=== PATIENT | female | born 1950 | race Caucasian/White ===

== ENCOUNTER 2019-08-01 10:34 | Outpatient (CLI) | payer OTHER, MEDICARE, SELFPAY ==
[2019-08-01 10:44] LABS: Hematocrit 36.8 % (35.0-42.0); Hemoglobin 12.6 g/dL (11.7-13.8); Mean Corpuscular HGB Conc 34.2 g/dL (32.0-36.0); Mean Corpuscular Hemoglobin 30.7 pg (27.0-31.0); Mean Corpuscular Volume 89.5 fL (78.0-102.0); Mean Platelet Volume 9.8 fl (9.2-11.8); Platelet Count Result 243 K/mm3 (150-420); Red Blood Count 4.11 M/mm3 (4.20-5.40); Red Cell Distribution Width 14.2 % (11.6-14.4); White Blood Count 3.7 K/mm3 (4.8-10.8)
[2019-08-01 11:17] LABS: Band Neutrophils Percent 0 % (0-6); Basophils Absolute Manual 0.03 K/mm3 (0-0.1); Basophils Percent Manual 1 % (0-1); Eosinophils Absolute Manual 0.03 K/mm3 (0.02-0.5); Eosinophils Percent Manual 1 % (1-6); Lymphocytes Absolute Manual 1.11 K/mm3 (1.1-4.5); Lymphocytes Percent Manual 30 % (18-44); Monocytes Absolute Manual 0.25 K/mm3 (0.1-0.90); Monocytes Percent Manual 7 % (3-9); Neutrophils Absolute Manual 2.25 K/mm3 (1.7-7.2); Neutrophils Percent Manual 61 % (46-73); Total Cells Counted 100
[2019-08-01 11:18] LABS: Platelet Estimate Adequate (Adequate)
[2019-08-01 11:31] LABS: Alanine Aminotransferase 29 U/L (14-59); Albumin Level 4.1 g/dL (3.4-5.0); Alkaline Phosphatase 70 U/L (46-116); Anion Gap 9.5 mmol/L (7-16); Aspartate Amino Transferase 18 U/L (15-37); Bilirubin,Total 0.3 mg/dL (0.00-1.00); Blood Urea Nitrogen 13 mg/dL (7-18); Carbon Dioxide 30 mmol/L (21-32); Chloride 100 mmol/L (98-108); Cholesterol 190 mg/dL (0-200); Creatine Kinase 73 U/L (26-192); Estimated Glomerular Filt Rate > 60; Ferritin 54 ng/mL (8-252); Free T4 Free Thyroxine 0.92 ng/dL (0.76-1.46); Glucose 109 mg/dL (70-99); HDL Direct 62 mg/dL (40-60); Iron 51 ug/dL (50-170); LDL Cholesterol Calculated 120 mg/dL (<130); Osmolality Calculated 281 mOsm/kg (285-295); Percent Iron Saturation 19 % (12-57); Potassium 4.5 mmol/L (3.5-5.1); Sodium 135 mmol/L (136-145); Thyroid Stimulating Hormone 2.19 uIU/mL (0.36-3.74); Total Protein 6.7 g/dL (6.4-8.2); Triglycerides 41 mg/dL (0-150)
== END 2019-08-01 10:35 | disposition home or self-care (01) ==
LOC: CHSLAB 10:36
PROVIDERS: PCP Internal Medicine; Visit Provider Internal Medicine
DX: E03.4 Atrophy of thyroid (acquired) (principal); I10 Essential (primary) hypertension; E78.5 Hyperlipidemia, unspecified; D50.9 Iron deficiency anemia, unspecified
CPT/HCPCS: 36415; 80053; 80061; 82550; 82728; 83540; 83550; 84439; 84443; 85025

== ENCOUNTER 2019-11-14 10:47 | Outpatient (CLI) | payer MEDICARE, SELFPAY ==
--- NOTE | ~2019-11-14 | MM_ITS ---
EXAMINATION: MM screening [facility] BI w sue HISTORY: Screening mammogram TECHNIQUE: Craniocaudal and mediolateral oblique 3-D tomosynthesis images were obtained and synthetic 2-D images were generated. CAD analysis was submitted and interpreted. COMPARISON: 05/25/2016, 03/13/2013 bilateral digital screening mammogram examinations BREAST PARENCHYMAL COMPOSITION: There are scattered areas of fibroglandular density. FINDINGS: There is no evidence of suspicious mass, calcification, or architectural distortion to sugg est malignancy in either breast. There has been no suspicious interval change. IMPRESSION: 1. No mammographic evidence of malignancy. 2. Recommend routine screening mammography in one year. BI-RADS Category 1: Negative Reviewed, dictated and finalized at location A.
== END 2019-11-14 10:48 | disposition home or self-care (01) ==
LOC: CHSIMG 10:50
PROVIDERS: PCP Internal Medicine; Visit Provider Internal Medicine
DX: Z12.31 Encounter for screening mammogram for malignant neoplasm of breast (principal)
CPT/HCPCS: 77063; 77067

== ENCOUNTER 2019-12-16 08:26 | Emergency (ER) | payer MEDICARE, SELFPAY ==
--- NOTE | ~2019-12-16 | XR_ITS ---
EXAMINATION: XR knee LT min 4V DATE: 12/16/2019 09:11 INDICATION: Left knee injury. TECHNIQUE: 5 views of left knee were obtained. COMPARISON: Left knee radiographs 10/01/2013 FINDINGS: Bone alignment is normal. No fracture. There is mild osteoarthritis of medial and patellofe moral compartments and moderate osteoarthritis of lateral compartment. There is a small knee joint ef fusion. There is a 3 mm loose body in the intercondylar notch. IMPRESSION: 1. Moderate left knee osteoarthritis. 2. Small left knee joint effusion with loose body. Reviewed, dictated and finalized at location A.
[2019-12-16 08:36] VITALS: BP 158/83; PULSE 81; RESP 18; TEMP 36.9; O2SAT 97
--- NOTE | 2019-12-16 08:50 | ED.FALL ---
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 She fell forward onto her hands and knees, hitting her upper lip which subsequently bled. She c/o pain in the upper lip, right wrist (#4/10) and left knee. There is increased discomfort in the wrist when she moves it (#4/10) and her knee when she bears weight #3/10). The knee pain is sharp, is relieved with ice and rest. She had no LOC, denies headache/neck pain. Related Data Home Medications Medication Instructions Recorded Confirmed fluoxetine 40 mg DAILY 12/16/19 12/16/19 furosemide 40 mg PO DAILY 12/16/19 12/16/19 levothyroxine 100 mcg PO DAILY 12/16/19 12/16/19 meloxicam 15 mg PO DAILY 12/16/19 12/16/19 omeprazole 20 mg PO DAILY 12/16/19 12/16/19 ramipril 5 mg PO DAILY 12/16/19 12/16/19 trazodone 100 mg PO DAILY 12/16/19 12/16/19 Allergies Allergy/AdvReac Type Severity Reaction Status Date / Time pneumococcal vaccine Allergy Mild Swelling Verified 12/16/19 08:48 Review of Systems Constitutional: Constitutional: Denies chills and Denies fever(s) Eyes: Eyes: Denies change in vision ENT: Denies epistaxis and Denies sore throat Cardiovascular: Cardiovascular: Denies chest pain Respiratory: Respiratory: Denies dyspnea Gastrointestinal: Gastrointestinal: Denies nausea and Denies vomiting Musculoskeletal: Musculoskeletal: Reports no additional musculoskeletal complaints Integumentary/Breasts: Skin/Breast: Reports system reviewed and no additional complaints, except as docu PMFSH Past Medical History Medical History (Updated 12/16/19 @ 09:35 by Preston Gonzalez MD) Depression Hypertension Hypothyroidism Macular degeneration Surgical History Surgical History (Updated 12/16/19 @ 09:11 by Preston Gonzalez MD) H/O: hysterectomy History of appendectomy Social History Social History (Updated 12/16/19 @ 09:12 by Preston Gonzalez MD) 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 Mucosal side of lip has a 1.5 cm laceration which gapes when she smiles. No scalp or frontal tenderness. Eyes: Pupils: Equal, round and reactive pupils present EOM: EOMs intact bilaterally Neck: Neck: no lymphadenopathy Other: non-tender Skin: General skin exam: normal color Rashes: no rashes Other: no abrasions or external lac. Neuro: General: patient oriented x3 and moves all extremities Extrem: Left upper extremity: wrist (Right - nontender, stable ulnar collateral ligament, full painless ROM) Other: No left wrist tenderness/pain with movement. Left tibial tuberosity swelling and tenderness. No patella, femur, tibial, joint line tenderness. Full painless ROM. Stable varus/valgus stress test. Course Course Emergency Course: mucosal laceration repaired. L. knee x ray result reviewed with patient. Pt. d.c. to return to work. Vital Signs Vital signs: Vital Signs Temperature 36.9 C 12/16/19 08:36 Pulse Rate 81 12/16/19 08:36 Respiratory Rate 18 12/16/19 08:36 Blood Pressure 158/83 H 12/16/19 08:36 Pulse Oximetry 97 12/16/19 08:36 Temperature 36.9 C 12/16/19 08:36 Pulse Rate 81 12/16/19 08:36 Respiratory Rate 18 12/16/19 08:36 Blood Pressure 158/83 H 12/16/19 08:36 Pulse Oximetry 97 12/16/19 08:36 Procedures Laceration Laceration 1: Date: 12/16/19 Time: 09:30 Site: other (bucchal mucosa) Side (If applicable): right Size (cm): 1.5 Description: line
--- NOTE | 2019-12-16 09:21 | PC.NURSE ---
no changei n pt condition. erp at bedside suturing small lac to upper right lip. pt tolerating well.
[2019-12-16 09:39] VITALS: BP 156/86; PULSE 70; RESP 16; TEMP 36.9; O2SAT 96
--- NOTE | 2019-12-16 09:48 | PC.NURSE ---
wrist splint was applied to right wrist per PCT prior to arrival
== END 2019-12-16 09:45 | disposition home or self-care (01) ==
PROVIDERS: Emergency Provider Family Medicine; PCP Internal Medicine
DX: S01.512A Laceration without foreign body of oral cavity, initial encounter (principal); S80.02XA Contusion of left knee, initial encounter; S60.211A Contusion of right wrist, initial encounter; W19.XXXA Unspecified fall, initial encounter
CPT/HCPCS: 12001; 29125; 73564; 90715; 99283

== ENCOUNTER 2019-12-28 08:20 | Outpatient (CLI) | payer MEDICARE, SELFPAY ==
--- NOTE | ~2019-12-28 | MR_ITS ---
EXAMINATION: MR knee LT wo con DATE: 12/28/2019 09:37 INDICATION: Left knee pain TECHNIQUE: Magnetic resonance imaging (MRI) of the left knee was performed without intravenous contra st. Sequences included coronal PD-weighted FSE, coronal PD-weighted FS FSE, sagittal T2-weighted FSE , sagittal PD-weighted FS FSE and axial PD weighted fat saturated FSE. COMPARISON: None. FINDINGS: Medial compartment: Increased intrasubstance signal in the posterior horn of the medial meniscus which does not unambiguo usly contact the articular surface on 2 consecutive images consistent with mucoid degeneration withou t discrete tear. Mild chondral surface irregularity along the weightbearing medial femoral condyle. M ore focal small region of high-grade chondromalacia with a small central subchondral osteophyte at th e posterior weightbearing medial femoral condyle. Lateral compartment: Is lateral extrusion of the lateral meniscal body. Complex tear with macerated appearance at the ante rior horn of the lateral meniscus with longitudinal tear plane extending into the anterior body of th e lateral meniscus. Extensive full/near full-thickness cartilage loss along the central to posterior aspect of the lateral tibial plateau and along the anterior to central weightbearing medial femoral c ondyle. There is some eburnation as well as minimal scattered subarticular edema on both sides of the joint space underlying the regions of most severe cartilage loss. Patellofemoral compartment: Partial-thickness cartilage loss with mild chondral surface regularity along the lateral patellar fac et and apical ridge with a couple tiny foci of subarticular edema. More region of deep chondral ulcer ation at the cephalad aspect of the medial trochlea and trochlear groove. More extensive partial thic kness chondral fissuring throughout the remainder of the trochlear without degenerative subchondral c hanges. Ligaments and tendons: Anterior and posterior cruciate ligaments are normal. Mild thickening of the proximal medial collater al ligament without surrounding edema or increased signal consistent with mild scarring related to ch ronic sprain. The fibular collateral ligament is normal. The extensor mechanism is normal. The visual ized medial and lateral hamstring tendons as well as the iliotibial band are normal. Fluid: Small to moderate-sized knee joint effusion with majority of the fluid collecting in the lateral gutt er of the suprapatellar pouch. No loose osteochondral bodies identified. Moderate-sized Catalan's cyst. Osseous/other: There is marrow edema extending along a linear nondisplaced fracture line which demonstrates a Y-shap ed configuration on both the axial and coronal images. This includes a sagittally oriented fracture l ine extending across the intercondylar eminence extending to a couple oblique fracture lines which ex tend anteriorly and inferiorly to either side of the anterior tibial tuberosity. The fractures howeve r appear incomplete with no completely fracture fragment. Underlying marrow signal is other omalley normal with no pathologic marrow replacing process. IMPRESSION: 1. Mildly comminuted nondisplaced likely incomplete fracture of the proximal tibia. 2. Lateral meniscal tear. 3. Lateral compartment predominant mild to moderate tricompartmental osteoarthritis with moderate and high-grade chondromalacia in all 3 compartments. 4. Small to moderate sized left knee joint effusion. 5. Moderate-sized Catalan's cyst. Reviewed, dictated and finalized at location A. IMPRESSION: 1. Mildly comminuted nondisplaced likely incomplete fracture of the proximal ti yomaira. 2. Lateral meniscal tear. 3. Lateral compartment predominant mild to moderate tricompartmental os
== END 2019-12-28 08:21 | disposition home or self-care (01) ==
LOC: CHSIMG 08:21
PROVIDERS: PCP Internal Medicine; Visit Provider Internal Medicine
DX: M25.562 Pain in left knee (principal)
CPT/HCPCS: 73721

== ENCOUNTER 2020-01-14 10:24 | Emergency (ER) | payer MEDICARE, SELFPAY ==
--- NOTE | 2020-01-14 11:12 | ED.SKABFB ---
HPI - Skin/Abscess/Foreign Bdy General Chief complaint: Skin/Abscess/Foreign Body Stated complaint: sore on back Time Seen by Provider: 01/14/20 11:13 Source: patient Mode of arrival: ambulatory Limitations: no limitations History of Present Illness HPI narrative: 69-year-old woman with a history of a lipoma on the left side of her back comes in today complaining of redness pain and purulent drainage from a wound adjacent to the lipoma. She states that it started a couple of days ago. She has had no fever, nausea, vomiting and has no history of prior skin infections. She denies history of diabetes. MD complaint: abscess/boil Onset (ago): day(s) (2) Location: back Severity: moderate Quality: sharp Pain Consistency: constant Relieving factors: none Exacerbating factors: palpation and movement Context: none Associated symptoms: denies other symptoms Treatments prior to arrival: none Related Data Home Medications Medication Instructions Recorded Confirmed fluoxetine 40 mg DAILY 12/16/19 01/14/20 furosemide 40 mg PO DAILY 12/16/19 01/14/20 levothyroxine 100 mcg PO DAILY 12/16/19 01/14/20 meloxicam 15 mg PO DAILY 12/16/19 01/14/20 omeprazole 20 mg PO DAILY 12/16/19 01/14/20 ramipril 5 mg PO DAILY 12/16/19 01/14/20 trazodone 100 mg PO DAILY 12/16/19 01/14/20 Allergies Allergy/AdvReac Type Severity Reaction Status Date / Time pneumococcal vaccine Allergy Mild Swelling Verified 12/16/19 08:48 Review of Systems Constitutional: Constitutional: Denies chills, Denies fever(s) and Denies weakness Cardiovascular: Cardiovascular: Denies chest pain and Denies radiating jaw, neck or arm pain Respiratory: Respiratory: Denies cough, Denies dyspnea and Denies wheezing Gastrointestinal: Gastrointestinal: Denies abdominal pain, Denies nausea and Denies vomiting Integumentary/Breasts: Skin/Breast: Denies pruritus, Reports erythema and Denies rash Neurologic: Denies vertigo, Denies dizziness and Denies syncope Hematologic/Lymphatic: Hematologic/Lymphatic: Denies easy bleeding and Denies easy bruising Allergic/Immunologic: Allergic/Immunologic: Denies lip swelling, Denies throat swelling and Denies tongue swelling [facility] Past Medical History Medical History Depression Hypertension Hypothyroidism Macular degeneration Surgical History Surgical History H/O: hysterectomy History of appendectomy Social History Social History (Updated 01/14/20 @ 11:34 by Preston Butler MD) Smoking status: Never smoker Substance use: never Living arrangements: with family 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 Gender identity (if verbalized by the patient): Female Exam Const: General: no acute distress and alert Orientation/consciousness: patient oriented x3 HENMT: Head: normal to inspection Face and sinus: normal facial exam Eyes: Conjunctivae: conjunctivae normal Pupils: Equal, round and reactive pupils present EOM: EOMs intact bilaterally Resp: Effort & Inspection: normal respiratory effort and not labored Auscultation: clear to auscultation bilaterally, no rales, no rhonchi and no wheezes Cardio: Rate: regular rate Rhythm: regular rhythm Heart sounds: no murmurs Skin: General skin exam: normal color, no jaundice and no pallor Rashes: no rashes Other: 2.5 cm diameter area of erythema with central ulceration draining sebum and pus. The adjacent lipoma is nontender, non erythematous, and not fluctuant. Neuro: General: patient oriented x3, moves all extremities, no meningeal signs, no focal motor deficits and CN's II-XI intact bilaterally Speech: normal speech Extrem: General: normal to inspection and no clubbing, cyanosis or edema Psych: Appearance: grossly normal and well kempt Mental Status: mental status grossly normal Affect: normal affect Attitude: cooperative Procedu
[2020-01-14 11:17] VITALS: BP 153/89; PULSE 82; RESP 14; TEMP 36.8; O2SAT 96
== END 2020-01-14 11:56 | disposition home or self-care (01) ==
PROVIDERS: Emergency Provider Emergency Medicine; PCP Internal Medicine
DX: L02.212 Cutaneous abscess of back [any part, except buttock and flank] (principal)
CPT/HCPCS: 10060; 10160; 87070; 87205; 99283

== ENCOUNTER 2020-02-05 11:00 | Outpatient (RCR) | payer MEDICARE, SELFPAY ==
--- NOTE | 2020-02-05 11:44 | PTOPEVAL ---
Thank you for referring Avis Gale to [facility].? The patient is scheduled to be seen for therapy? ____x/week for ___ weeks. Please review, sign, date and return this plan of care ANGELA. I agree with and certify that the following plan of care is medically necessary. Referring Physician Date Admitting Provider: Attending Provider: Gaurav Xiong MD Referring Provider: *PT Outpatient Evaluation Start: 02/05/20 11:03 Freq: Status: Active Protocol: Document 02/05/20 11:05 Tigist (Rec: 02/05/20 11:44 [facility] [id number]) Therapy Assessment Status Assessment Status Assessment Status Evaluation Outpatient Past Medical History Cardiovascular History Hx Hypertension Yes Hx Vascular Surgery Yes Gastrointestinal History Hx Appendectomy Yes Musculoskeletal History Hx Orthopedic Surgery Yes: back Endocrine History Hx Hypothyroidism Yes HEENT History Hx Macular Degeneration Yes Hx Tonsillectomy Yes Reproductive History Hx Post Menopausal Yes Psychosocial History Hx Depression Yes Evaluation Information Problem Diagnosis L tibial plateau fracture, fall Onset 12/15/19 Subjective Information patient reports she fell and Query Text:As Reported By Patient/ hit her face and fracture her Family tibial plateau of the L LE. she reports she did not require surgery. she reports she was off with partial weightbearing for a period of time, but is now here to improve her strength of the L LE. she reports she has been noticing increased issues with her R LE since her fall as she is tripping over her toes at times. Prior Level of Function Comments Additional Prior Level of Function prior to fall, arthritis in Comments bilateral knees. patient was working. patient is not working currently. Pain Assessment Timing of Pain Assessment Timing of Pain Assessment Assessment Pain Scale Pain Scale Used Numeric (1 - 10) Self Report Pain Assessment Right Knee(s) Reported Pain Level 0 Greatest Pain Intensity 7 Pain Aggravating Factors Stair Climbing,Walking Left Knee(s) Reported Pain Level 0 Greatest Pain Intensity 0 Pain Score Pain Score 0,0: Self Report Lower E
== END 2020-03-10 14:58 | disposition home or self-care (01) ==
LOC: CHSPT 11:00
PROVIDERS: Visit Provider Orthopaedic Surgery
DX: M17.12 Unilateral primary osteoarthritis, left knee (principal)
CPT/HCPCS: 97110; 97112; 97161

== ENCOUNTER 2020-08-31 12:27 | Outpatient (CLI) | payer MEDICARE, SELFPAY ==
[2020-08-31 12:51] LABS: Basophils Absolute Auto 0.03 K/mm3 (0.00-0.10); Basophils Percent Auto 0.7 % (0.0-1.0); Eosinophils Absolute Auto 0.09 K/mm3 (0.02-0.50); Hematocrit 35.6 % (35.0-42.0); Hemoglobin 11.7 g/dL (11.7-13.8); Immature Granulocyte Absolute 0.02 K/mm3 (0.00-0.00); Immature Granulocyte Percent A 0.4 % (0.0-0.0); Lymphocytes Absolute Auto 1.37 K/mm3 (1.10-4.50); Lymphocytes Percent Auto 30.4 % (18.0-42.0); Mean Corpuscular HGB Conc 32.9 g/dL (32.0-36.0); Mean Corpuscular Hemoglobin 31.2 pg (27.0-31.0); Mean Corpuscular Volume 94.9 fL (78.0-102.0); Mean Platelet Volume 10.8 fl (9.2-11.8); Monocytes Absolute Auto 0.41 K/mm3 (0.10-0.90); Monocytes Percent Auto 9.1 % (2.0-11.0); Neutrophils Absolute Auto 2.6 K/mm3 (1.7-7.2); Neutrophils Percent Auto 57.4 % (50.0-70.0); Platelet Count Result 236 K/mm3 (150-420); Red Blood Count 3.75 M/mm3 (4.20-5.40); Red Cell Distribution Width 13.3 % (11.6-14.4); White Blood Count 4.5 K/mm3 (4.8-10.8)
[2020-08-31 13:18] LABS: Add Urine Microscopic? NO; Appearance Urine Clear (Clear); Bilirubin Urine Negative (Negative); Blood Urine Negative (Negative); Color Urine Yellow (Yellow); Glucose Urine UA Negative (Negative); Ketones Urine Negative (Negative); Leukocyte Esterase Ur Negative LEU/UL (Negative); Nitrate Urine Negative (Negative); Protein Urine Negative (Negative); Urobilinogen Urine 0.2 mg/dL (0.2-1.0)
[2020-08-31 13:49] LABS: Alanine Aminotransferase 38 U/L (14-59); Albumin Level 3.7 g/dL (3.4-5.0); Alkaline Phosphatase 68 U/L (46-116); Anion Gap 6 mmol/L (8-16); Aspartate Amino Transferase 32 U/L (15-37); Bilirubin,Total 0.4 mg/dL (0.00-1.00); Blood Urea Nitrogen 20 mg/dL (7-18); Calcium 8.8 mg/dL (8.5-10.1); Carbon Dioxide 29 mmol/L (21-32); Chloride 96 mmol/L (98-108); Cholesterol 182 mg/dL (0-200); Estimated Glomerular Filt Rate > 60; Ferritin 57 ng/mL (8-252); Free T4 Free Thyroxine 0.95 ng/dL (0.76-1.46); Glucose 86 mg/dL (70-99); HDL Direct 64 mg/dL (40-60); Iron 84 ug/dL (50-170); LDL Cholesterol Calculated 108 mg/dL (<130); Osmolality Calculated 273 mOsm/kg (285-295); Percent Iron Saturation 30 % (12-57); Potassium 4.6 mmol/L (3.5-5.1); Sodium 131 mmol/L (136-145); Thyroid Stimulating Hormone 2.98 uIU/mL (0.36-3.74); Total Protein 6.4 g/dL (6.4-8.2); Triglycerides 52 mg/dL (0-150)
== END 2020-08-31 12:28 | disposition home or self-care (01) ==
PROVIDERS: PCP Internal Medicine; Visit Provider Internal Medicine
DX: E78.5 Hyperlipidemia, unspecified (principal); I10 Essential (primary) hypertension; E03.9 Hypothyroidism, unspecified; D64.9 Anemia, unspecified
CPT/HCPCS: 36415; 80053; 80061; 81003; 82728; 83540; 83550; 84439; 84443; 85025

== ENCOUNTER 2020-09-25 09:28 | Outpatient (CLI) | payer MEDICARE, SELFPAY ==
[2020-09-25 09:41] LABS: Basophils Absolute Auto 0.04 K/mm3 (0.00-0.10); Eosinophils Absolute Auto 0.15 K/mm3 (0.02-0.50); Eosinophils Percent Auto 3.6 % (1.0-6.0); Hematocrit 36.6 % (35.0-42.0); Hemoglobin 12.2 g/dL (11.7-13.8); Immature Granulocyte Absolute 0.02 K/mm3 (0.00-0.00); Immature Granulocyte Percent A 0.5 % (0.0-0.0); Lymphocytes Absolute Auto 1.76 K/mm3 (1.10-4.50); Lymphocytes Percent Auto 42.3 % (18.0-42.0); Mean Corpuscular HGB Conc 33.3 g/dL (32.0-36.0); Mean Corpuscular Hemoglobin 31.7 pg (27.0-31.0); Mean Corpuscular Volume 95.1 fL (78.0-102.0); Mean Platelet Volume 10.5 fl (9.2-11.8); Monocytes Absolute Auto 0.31 K/mm3 (0.10-0.90); Monocytes Percent Auto 7.5 % (2.0-11.0); Neutrophils Absolute Auto 1.9 K/mm3 (1.7-7.2); Neutrophils Percent Auto 45.1 % (50.0-70.0); Platelet Count Result 224 K/mm3 (150-420); Red Blood Count 3.85 M/mm3 (4.20-5.40); Red Cell Distribution Width 13.6 % (11.6-14.4); White Blood Count 4.2 K/mm3 (4.8-10.8)
[2020-09-25 10:17] LABS: Anion Gap 6 mmol/L (8-16); Blood Urea Nitrogen 12 mg/dL (7-18); CRP 0.8 mg/dL (0.0-0.9); Calcium 9.1 mg/dL (8.5-10.1); Carbon Dioxide 31 mmol/L (21-32); Chloride 97 mmol/L (98-108); Estimated Glomerular Filt Rate > 60; Glucose 100 mg/dL (70-99); Osmolality Calculated 277 mOsm/kg (285-295); Potassium 4.6 mmol/L (3.5-5.1); Sodium 134 mmol/L (136-145)
[2020-09-25 10:43] LABS: Erythrocyte Sedimentation Rate 4 mm/hr (0-20)
[2020-09-29 08:22] LABS: Adrenocorticotropic Hormone 58 pg/mL (6-50)
[2020-09-30 23:21] LABS: Cortisol Random 21.9 mcg/dL (***)
== END 2020-09-25 09:29 | disposition home or self-care (01) ==
LOC: CHSLAB 09:31
PROVIDERS: PCP Internal Medicine; Visit Provider Internal Medicine
DX: E87.1 Hypo-osmolality and hyponatremia (principal); R53.83 Other fatigue; M35.3 Polymyalgia rheumatica
CPT/HCPCS: 36415; 80048; 82024; 82533; 85025; 85652; 86140

== ENCOUNTER 2021-03-26 09:16 | Outpatient (CLI) | payer MEDICARE, SELFPAY ==
[2021-03-26 09:33] LABS: Add Urine Microscopic? YES; Appearance Urine Clear (Clear); Basophils Absolute Auto 0.04 K/mm3 (0.00-0.10); Basophils Percent Auto 0.9 % (0.0-1.0); Bilirubin Urine Negative (Negative); Blood Urine Negative (Negative); Color Urine Light Yellow (Yellow); Eosinophils Absolute Auto 0.14 K/mm3 (0.02-0.50); Eosinophils Percent Auto 3.1 % (1.0-6.0); Glucose Urine UA Negative (Negative); Hematocrit 35.8 % (35.0-42.0); Hemoglobin 12.2 g/dL (11.7-13.8); Immature Granulocyte Absolute 0.01 K/mm3 (0.00-0.00); Immature Granulocyte Percent A 0.2 % (0.0-0.0); Ketones Urine Negative (Negative); Leukocyte Esterase Ur Trace LEU/UL (Negative); Lymphocytes Absolute Auto 1.78 K/mm3 (1.10-4.50); Lymphocytes Percent Auto 38.9 % (18.0-42.0); Mean Corpuscular HGB Conc 34.1 g/dL (32.0-36.0); Mean Corpuscular Hemoglobin 32.2 pg (27.0-31.0); Mean Corpuscular Volume 94.5 fL (78.0-102.0); Mean Platelet Volume 10.2 fl (9.2-11.8); Monocytes Absolute Auto 0.41 K/mm3 (0.10-0.90); Neutrophils Absolute Auto 2.2 K/mm3 (1.7-7.2); Neutrophils Percent Auto 47.9 % (50.0-70.0); Nitrate Urine Negative (Negative); Platelet Count Result 236 K/mm3 (150-420); Protein Urine Negative (Negative); Red Blood Count 3.79 M/mm3 (4.20-5.40); Red Cell Distribution Width 13.1 % (11.6-14.4); Specific Grav Ur 1.015 (1.010-1.020); Urobilinogen Urine 0.2 mg/dL (0.2-1.0); White Blood Count 4.6 K/mm3 (4.8-10.8); pH Urine 7.5 (5.0-8.0)
[2021-03-26 09:49] LABS: Bacteria Urine None seen /hpf; RBC Urine None seen /hpf (0-2); Squamous Epithelial Cell Urine Rare /hpf (Few); WBC Urine None seen /hpf (0-3)
[2021-03-26 10:25] LABS: Alanine Aminotransferase 23 U/L (14-59); Albumin Level 3.9 g/dL (3.4-5.0); Alkaline Phosphatase 59 U/L (46-116); Anion Gap 5 mmol/L (8-16); Aspartate Amino Transferase 16 U/L (15-37); Bilirubin,Total 0.3 mg/dL (0.00-1.00); Blood Urea Nitrogen 14 mg/dL (7-18); Carbon Dioxide 32 mmol/L (21-32); Chloride 94 mmol/L (98-108); Cholesterol 215 mg/dL (0-200); Estimated Glomerular Filt Rate > 60; Ferritin 62 ng/mL (8-252); Free T4 Free Thyroxine 0.99 ng/dL (0.76-1.46); Glucose 114 mg/dL (70-99); HDL Direct 70 mg/dL (40-60); Iron 89 ug/dL (50-170); LDL Cholesterol Calculated 127 mg/dL (<130); Osmolality Calculated 273 mOsm/kg (285-295); Potassium 4.3 mmol/L (3.5-5.1); Sodium 131 mmol/L (136-145); Thyroid Stimulating Hormone 2.22 uIU/mL (0.36-3.74); Total Protein 6.5 g/dL (6.4-8.2); Triglycerides 89 mg/dL (0-150)
== END 2021-03-26 09:17 | disposition home or self-care (01) ==
LOC: CHSLAB 09:19
PROVIDERS: PCP Internal Medicine; Visit Provider Internal Medicine
DX: E03.9 Hypothyroidism, unspecified (principal); E78.5 Hyperlipidemia, unspecified; I10 Essential (primary) hypertension; D50.8 Other iron deficiency anemias
CPT/HCPCS: 36415; 80053; 80061; 81001; 82728; 83540; 84439; 84443; 85025

== ENCOUNTER 2021-04-21 11:16 | Outpatient (CLI) | payer MEDICARE, SELFPAY ==
--- NOTE | ~2021-04-21 | XR_ITS ---
EXAMINATION: XR chest 2V 04/21/2021 11:40 INDICATION: Cough PROCEDURE: 2 view chest COMPARISON: Comparison to multiple prior studies sequentially, with oldest reviewed study dated 09/12. FINDINGS: The lungs are clear. The cardiomediastinal silhouette is within normal limits. There are no pleural effusions. There is no pneumothorax suspected. IMPRESSION: 1: NO ACUTE CARDIOPULMONARY DISEASE. Reviewed, dictated and finalized at location B. 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
[2021-04-21 12:21] LABS: Influenza A QL RT-PCR Negative (Negative); Influenza B QL RT-PCR Negative (Negative); SARS-CoV-2 RNA PCR Negative (Negative)
== END 2021-04-21 11:17 | disposition home or self-care (01) ==
LOC: CHSLAB 11:17
PROVIDERS: PCP Internal Medicine; Visit Provider Internal Medicine
DX: R05.9 Cough, unspecified (principal); Z20.822 Contact with and (suspected) exposure to COVID-19
CPT/HCPCS: 71046; 87502; C9803; U0003; U0005

== ENCOUNTER 2021-04-26 12:26 | Outpatient (CLI) | payer MEDICARE, SELFPAY ==
--- NOTE | ~2021-04-26 | XR_ITS ---
EXAMINATION: XR chest 2V DATE: 04/26/2021 12:56 INDICATION: Cough TECHNIQUE: PA and lateral views of the chest were obtained. COMPARISON: Chest radiograph dated 04/21/2021 FINDINGS: The lungs remain clear with no focal airspace opacities, pulmonary edema, pleural effusion or pneumot horax. The cardiomediastinal silhouette is normal. Mild thoracic spondylosis. IMPRESSION: 1. No acute cardiopulmonary disease. Reviewed, dictated and finalized at location B. RVISOR STENO POOL
[2021-04-26 13:06] LABS: Basophils Absolute Auto 0.05 K/mm3 (0.00-0.10); Basophils Percent Auto 0.7 % (0.0-1.0); Eosinophils Absolute Auto 0.17 K/mm3 (0.02-0.50); Eosinophils Percent Auto 2.5 % (1.0-6.0); Hematocrit 40.3 % (35.0-42.0); Hemoglobin 13.5 g/dL (11.7-13.8); Immature Granulocyte Absolute 0.02 K/mm3 (0.00-0.00); Immature Granulocyte Percent A 0.3 % (0.0-0.0); Lymphocytes Absolute Auto 1.56 K/mm3 (1.10-4.50); Lymphocytes Percent Auto 23.4 % (18.0-42.0); Mean Corpuscular HGB Conc 33.5 g/dL (32.0-36.0); Mean Corpuscular Hemoglobin 32.1 pg (27.0-31.0); Mean Platelet Volume 9.7 fl (9.2-11.8); Monocytes Absolute Auto 0.45 K/mm3 (0.10-0.90); Monocytes Percent Auto 6.7 % (2.0-11.0); Neutrophils Absolute Auto 4.4 K/mm3 (1.7-7.2); Neutrophils Percent Auto 66.4 % (50.0-70.0); Platelet Count Result 285 K/mm3 (150-420); Red Cell Distribution Width 12.4 % (11.6-14.4); White Blood Count 6.7 K/mm3 (4.8-10.8)
[2021-04-26 13:31] LABS: Alanine Aminotransferase 29 U/L (14-59); Albumin Level 3.8 g/dL (3.4-5.0); Alkaline Phosphatase 84 U/L (46-116); Anion Gap 8 mmol/L (8-16); Aspartate Amino Transferase 15 U/L (15-37); Bilirubin,Total 0.4 mg/dL (0.00-1.00); Blood Urea Nitrogen 9 mg/dL (7-18); Calcium 9.1 mg/dL (8.5-10.1); Carbon Dioxide 31 mmol/L (21-32); Chloride 97 mmol/L (98-108); Estimated Glomerular Filt Rate > 60; Glucose 99 mg/dL (70-99); Osmolality Calculated 280 mOsm/kg (285-295); Potassium 4.2 mmol/L (3.5-5.1); Sodium 136 mmol/L (136-145); Total Protein 7.1 g/dL (6.4-8.2)
[2021-04-26 13:50] LABS: Influenza A QL RT-PCR Negative (Negative); Influenza B QL RT-PCR Negative (Negative); SARS-CoV-2 RNA PCR Negative (Negative)
== END 2021-04-26 12:27 | disposition home or self-care (01) ==
LOC: CHSLAB 12:29
PROVIDERS: PCP Internal Medicine; Visit Provider Internal Medicine
DX: J06.9 Acute upper respiratory infection, unspecified (principal); R05.9 Cough, unspecified; Z20.822 Contact with and (suspected) exposure to COVID-19
CPT/HCPCS: 36415; 71046; 80053; 85025; 87502; C9803; U0003; U0005

== ENCOUNTER 2021-06-01 12:00 | Outpatient (CLI) | payer MEDICARE, SELFPAY ==
--- NOTE | ~2021-06-01 | MM_ITS ---
EXAMINATION: MM screening [facility] BI w sue HISTORY: Screening TECHNIQUE: Craniocaudal and mediolateral oblique 3-D tomosynthesis images were obtained and synthetic 2-D images were generated. CAD analysis was submitted and interpreted. COMPARISON: Comparison to multiple prior studies sequentially, with oldest reviewed study dated 02/20. BREAST PARENCHYMAL COMPOSITION: There are scattered areas of fibroglandular density. FINDINGS: There is no evidence of suspicious mass, calcification, or architectural distortion to sugg est malignancy in either breast. There has been no suspicious interval change. IMPRESSION: 1. No mammographic evidence of malignancy. 2. Recommend routine screening mammography in one year. BI-RADS Category 1: Negative Reviewed, dictated and finalized at location A. 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
--- NOTE | ~2021-06-01 | DEXA_ITS ---
Bone Density Report Name: ALYSSA SALOMON Age: 70 Sex: Female Ethnicity: White Date of : 1950 Indication: postmenopausal; screening for osteoporosis; hysterectomy; Referring Provider: Priscilla Nunes Study: Bone densitometry was performed. Exam Date: June 01, 2021 Accession number: [id number] Bone Density: Region BMD T-score Z-score Classification Femoral Neck (Left) 0.681 -1.5 0.3 Osteopenia Total Hip (Left) 0.779 -1.3 0.2 Osteopenia Femoral Neck (Right) 0.653 -1.8 0.1 Osteopenia Total Hip (Right) 0.814 -1.1 0.5 Osteopenia Femoral Neck Mean 0.667 -1.6 0.2 Osteopenia Total Hip Mean 0.797 -1.2 0.3 Osteopenia World Health Organization criteria for BMD impression classify patients as: Normal (T-score at or above -1.0), Osteopenia (T-score between -1.0 and -2.5), or Osteoporosis (T-score at or below -2.5). Clinical Information Provided by Patient: Has 3 or more alcoholic drinks per day Has the following medical conditions: Hysterectomy Patient maximum height was 65 No regular weight bearing exercise Does not regularly consume dairy products Onset of menses at age 9 Number of children 4 Impression: The patient has low bone mass, based on the Right Femoral Neck T-score. The patient has risk factors, including: excessive alcohol use. Discussion: BONE DENSITY IS LOW AT ONE OR MORE SKELETAL SITES. This patient's lowest T-score is low at one or more skeletal sites. It meets the World Health Organization's (WHO) criteria for ?low bone mass? (T-score between -1.0 and -2.5). The patient's 10-year risk of fracture as calculated by FRAX is less than the threshold where pharmacological therapy is recommended by the National Osteoporosis Foundation (NOF). However, all treatment decisions require clinical judgment and consideration of individual patient factors, including patient preferences, comorbidities, previous drug use, risk factors not captured in the FRAX model (e.g., frailty, falls, vitamin D deficiency, increased bone turnover, interval significant decline in bone density) and possible under or overestimation of fracture risk by FRAX. The patient should follow a healthful lifestyle (good nutrition with adequate calcium and vitamin D, and appropriate weight-bearing exercise). Follow-Up: Consider repeating this study in 2 to 3 years to reassess this patient's status, or sooner if there is some new clinical indication. Reported by: Dr. Sean Deleon on 06/01/2021 12:41:00 PM. Reviewed, dictated and finalized at location A. [facility] TISCH HOSPITALSamir
== END 2021-06-01 12:01 | disposition home or self-care (01) ==
LOC: CHSIMG 12:01
PROVIDERS: PCP Internal Medicine; Visit Provider Internal Medicine
DX: Z12.31 Encounter for screening mammogram for malignant neoplasm of breast (principal); M81.0 Age-related osteoporosis without current pathological fracture
CPT/HCPCS: 77063; 77067; 77080

== ENCOUNTER 2021-09-20 11:54 | Outpatient (CLI) | payer MEDICARE, SELFPAY ==
--- NOTE | ~2021-09-20 | XR_ITS ---
EXAMINATION: XR lumbar spine 2-3V DATE: 09/20/2021 12:24 INDICATION: Low back pain TECHNIQUE: Anteroposterior and lateral views of the lumbar spine, and cone-down lateral view of the l umbosacral junction were obtained. COMPARISON: 11/08/2013 FINDINGS: There are changes of interval anterior and posterior fusion from L4 through S1 since the co mparison radiographs. There are 2 mm of anterolisthesis of L4 on L5. The vertebral body heights are m aintained. There is moderate loss of intervertebral disc space height at L1-2, L2-3, and L3-4. There is no fracture. Small degenerative osteophytes project from the anterior endplates of multiple verteb ral bodies. IMPRESSION: 1. Surgical changes from L4 through S1, otherwise moderate lumbar spondylosis. Reviewed, dictated and finalized at location A.
== END 2021-09-20 11:55 | disposition home or self-care (01) ==
LOC: CHSIMG 11:55
PROVIDERS: PCP Internal Medicine; Visit Provider Internal Medicine
DX: M54.50 Low back pain, unspecified (principal)
CPT/HCPCS: 72100

== ENCOUNTER 2021-09-22 12:37 | Outpatient (CLI) | payer MEDICARE, SELFPAY ==
[2021-09-22 12:58] LABS: Basophils Absolute Auto 0.05 K/mm3 (0.00-0.10); Basophils Percent Auto 1.1 % (0.0-1.0); Eosinophils Percent Auto 2.2 % (1.0-6.0); Hematocrit 34.1 % (35.0-42.0); Hemoglobin 11.4 g/dL (11.7-13.8); Immature Granulocyte Absolute 0.01 K/mm3 (0.00-0.00); Immature Granulocyte Percent A 0.2 % (0.0-0.0); Lymphocytes Absolute Auto 1.34 K/mm3 (1.10-4.50); Lymphocytes Percent Auto 29.6 % (18.0-42.0); Mean Corpuscular HGB Conc 33.4 g/dL (32.0-36.0); Mean Corpuscular Hemoglobin 32.4 pg (27.0-31.0); Mean Corpuscular Volume 96.9 fL (78.0-102.0); Mean Platelet Volume 10.2 fl (9.2-11.8); Monocytes Absolute Auto 0.45 K/mm3 (0.10-0.90); Monocytes Percent Auto 9.9 % (2.0-11.0); Neutrophils Absolute Auto 2.6 K/mm3 (1.7-7.2); Platelet Count Result 220 K/mm3 (150-420); Red Blood Count 3.52 M/mm3 (4.20-5.40); Red Cell Distribution Width 12.9 % (11.6-14.4); White Blood Count 4.5 K/mm3 (4.8-10.8)
[2021-09-22 12:59] LABS: Add Urine Microscopic? NO; Appearance Urine Clear (Clear); Bilirubin Urine Negative (Negative); Blood Urine Negative (Negative); Color Urine Yellow (Yellow); Glucose Urine UA Negative (Negative); Ketones Urine Negative (Negative); Leukocyte Esterase Ur Negative (Negative); Nitrate Urine Negative (Negative); Protein Urine Negative (Negative); Specific Grav Ur <= 1.005 (1.010-1.020); Urobilinogen Urine 0.2 mg/dL (0.2-1.0)
[2021-09-22 13:22] LABS: Hemoglobin A1C 5.6 % (<5.7)
[2021-09-22 13:49] LABS: Alanine Aminotransferase 6 U/L (14-59); Albumin Level 3.7 g/dL (3.4-5.0); Alkaline Phosphatase 57 U/L (46-116); Anion Gap 5 mmol/L (8-16); Aspartate Amino Transferase 16 U/L (15-37); Bilirubin,Total 0.3 mg/dL (0.00-1.00); Blood Urea Nitrogen 10 mg/dL (7-18); Calcium 8.5 mg/dL (8.5-10.1); Carbon Dioxide 30 mmol/L (21-32); Chloride 97 mmol/L (98-108); Cholesterol 194 mg/dL (0-200); Estimated Glomerular Filt Rate > 60; Free T3 1.85 pg/mL (2.18-3.98); Free T4 Free Thyroxine 0.98 ng/dL (0.76-1.46); Glucose 75 mg/dL (70-99); HDL Direct 76 mg/dL (40-60); LDL Cholesterol Calculated 108 mg/dL (<130); Osmolality Calculated 272 mOsm/kg (285-295); Potassium 4.1 mmol/L (3.5-5.1); Sodium 132 mmol/L (136-145); Total Protein 6.5 g/dL (6.4-8.2); Triglycerides 48 mg/dL (0-150)
[2021-09-24 15:30] LABS: Vitamin D 25 Hydroxy 30 ng/mL (30-100)
== END 2021-09-22 12:38 | disposition home or self-care (01) ==
LOC: CHSLAB 12:39
PROVIDERS: PCP Internal Medicine; Visit Provider Internal Medicine
DX: E03.4 Atrophy of thyroid (acquired) (principal); I10 Essential (primary) hypertension; E78.2 Mixed hyperlipidemia; M81.0 Age-related osteoporosis without current pathological fracture; E87.1 Hypo-osmolality and hyponatremia; R73.01 Impaired fasting glucose
CPT/HCPCS: 36415; 80053; 80061; 81003; 82306; 83036; 84439; 84443; 84481; 85025

== ENCOUNTER 2021-09-28 10:59 | Outpatient (CLI) | payer MEDICARE, SELFPAY ==
[2021-09-28 11:13] LABS: Immature Reticulocyte Fraction 12.4 % (2.0-16.52); Reticulocyte Percent 1.58 % (0.50-1.50); Reticulocytes Absolute 0.06 M/mm3 (0.02-0.1)
[2021-09-28 12:14] LABS: Ferritin 62 ng/mL (8-252); Iron 114 ug/dL (50-170); Percent Iron Saturation 42 % (12-57)
[2021-10-01 14:05] LABS: Red Blood Cell Folate 571 ng/mL RBC (>280)
== END 2021-09-28 11:00 | disposition home or self-care (01) ==
LOC: CHSLAB 11:02
PROVIDERS: PCP Internal Medicine; Visit Provider Internal Medicine
DX: D64.9 Anemia, unspecified (principal)
CPT/HCPCS: 36415; 82728; 82747; 83540; 83550; 85046

== ENCOUNTER 2021-10-05 08:52 | Outpatient (CLI) | payer MEDICARE, SELFPAY ==
--- NOTE | ~2021-10-05 | MR_ITS ---
EXAMINATION: MR lumbar spine wo con DATE: 10/05/2021 10:05 INDICATION: Low back pain. Bilateral leg pain. TECHNIQUE: Magnetic resonance imaging (MRI) of the lumbar spine was performed without intravenous con trast. Sequences included sagittal T2-weighted FSE, sagittal T2-weighted FS FSE, sagittal T1-weighted FSE, and axial T2-weighted FSE. COMPARISON: Lumbar spine MRI 07/28/2018 FINDINGS: There is 4 degrees levocurvature of lumbar spine. There is 3 mm retrolisthesis of L1 on L2 and L2 on L3. There are changes of anterior and posterior fusion procedures from L4 to S1 with discec tomies, interbody devices, and pedicle screws. There is moderately decreased disc height at L1-L2 and mildly decreased disc height at L2-L3 and L3-L4. The distal spinal cord signal intensity is normal. The conus medullaris is at L1. The following disc levels are specifically discussed: L1-L2: The disc is bulging. There is mild bilateral facet joint osteoarthritis. There is mild right n eural foraminal stenosis. There is mild central canal stenosis. L2-L3: The disc is bulging. There is mild bilateral facet joint osteoarthritis. There is moderate cynthia ateral neural foraminal stenosis. There is mild central canal stenosis. L3-L4: The disc is bulging. There is severe bilateral facet joint osteoarthritis. There is moderate b ilateral neural foraminal stenosis. There is mild central canal stenosis. There is moderate stenosis of the lateral recesses. L4-L5: There is no facet joint hypertrophy. There is no neural foraminal stenosis. There is no centra l canal stenosis. There is posterior decompression. L5-S1: There is no facet joint hypertrophy. There is no neural foraminal stenosis. There is no centra l canal stenosis. There is posterior decompression. IMPRESSION: 1. Moderate lumbar spondylosis with interval worsening in upper lumbar spine. 2. Anterior and posterior fusion procedures from L4 to S1, new from 07/28/18. Reviewed, dictated and finalized at location B.
== END 2021-10-05 08:53 | disposition home or self-care (01) ==
LOC: CHSIMG 08:54
PROVIDERS: PCP Internal Medicine; Visit Provider Internal Medicine
DX: M54.50 Low back pain, unspecified (principal)
CPT/HCPCS: 72148

== ENCOUNTER 2021-10-11 15:01 | Outpatient (RCR) | payer MEDICARE, SELFPAY ==
--- NOTE | 2021-10-11 15:58 | PTOPEVAL ---
Thank you for referring Avis Gale to [facility].? The patient is scheduled to be seen for therapy? _2___x/week for 10 visits. Please review, sign, date and return this plan of care ANGELA. I agree with and certify that the following plan of care is medically necessary. Referring Physician Date Admitting Provider: Attending Provider: Priscilla Nunes MD Referring Provider: *PT Outpatient Evaluation Start: 10/11/21 15:09 Freq: Status: Active Protocol: Document 10/11/21 15:09 [facility] (Rec: 10/11/21 15:57 [facility] [id number]) Therapy Assessment Status Assessment Status Assessment Status Evaluation Outpatient Past Medical History Cardiovascular History Hx Hypertension Yes Hx Vascular Surgery Yes Gastrointestinal History Hx Appendectomy Yes Musculoskeletal History Hx Orthopedic Surgery Yes: back Endocrine History Hx Hypothyroidism Yes HEENT History Hx Macular Degeneration Yes Hx Tonsillectomy Yes Reproductive History Hx Post Menopausal Yes Psychosocial History Hx Depression Yes Evaluation Information Problem Diagnosis low back pain, bilateral l.e. pain Onset 06/05/21 Subjective Information Pt. reports that she has Query Text:As Reported By Patient/ experienced years of back and Family leg pain. She states that since the beginning of this year her symptoms have worsened. She states that pain worsens with long periods of sitting, as well as long periods of standing. She reports that she can only stand for about 5 minutes. She can attempt to walk for about 15 minutes before she has to sit due to pain. she reports that no difficulty with sleep, but does take medication. She states that she does have some aching early in the morning. She reports that her pain goes across the low back, more intense on the left and radiates into the thighs. She reports that she also notices that her balance is very poor . She denies doing any
--- NOTE | 2021-11-18 07:26 | PTOPEVAL ---
Thank you for referring Avis Gale to [facility].? The patient is scheduled to be seen for therapy? ____x/week for ___ weeks. Please review, sign, date and return this plan of care ANGELA. I agree with and certify that the following plan of care is medically necessary. Referring Physician Date Admitting Provider: Attending Provider: Priscilla Nunes MD Referring Provider: *PT Outpatient Evaluation Start: 10/11/21 15:09 Freq: Status: Active Protocol: Document 11/17/21 15:00 [facility] (Rec: 11/17/21 15:33 [facility] [id number]) Therapy Assessment Status Assessment Status Assessment Status Discharge Outpatient Past Medical History Cardiovascular History Hx Hypertension Yes Hx Vascular Surgery Yes Gastrointestinal History Hx Appendectomy Yes Musculoskeletal History Hx Orthopedic Surgery Yes: back Endocrine History Hx Hypothyroidism Yes HEENT History Hx Macular Degeneration Yes Hx Tonsillectomy Yes Reproductive History Hx Post Menopausal Yes Psychosocial History Hx Depression Yes Evaluation Information Problem Diagnosis low back pain, bilateral l.e. pain Onset 06/05/21 Additional Evaluation Detail Oswestry = 30% Functionally Impaired Subjective Information Pt reports that the cramping Query Text:As Reported By Patient/ pain in her legs does not Family exist any longer due to her increasing the amount of Sodium she has been consuming. She states that she went to her family physician, who assessed her lab values, finding critically low sodium. From there, she began drinking a gatorade a day, which has helped her feel much better. She says that she has an appointment with a compounding pharmacy technician who will be looking at her kidney function further. In regard to her back and leg pain, she states that it is much better and she no longer has complaints of pain in these areas. Pain Assessment Timing of Pain Assessment Timing of Pain Assessment Pre-Treatment Self Report Self Report Pain Level 0 Pain Score Pain Score 0: Self Report Cervical and Lumbar ROM L
--- NOTE | 2021-11-18 07:27 | PTOPEVAL ---
Thank you for referring Avis Gale to [facility].? The patient is scheduled to be seen for therapy? ____x/week for ___ weeks. Please review, sign, date and return this plan of care ANGELA. I agree with and certify that the following plan of care is medically necessary. Referring Physician Date Admitting Provider: Attending Provider: Priscilla Nunes MD Referring Provider: *PT Outpatient Evaluation Start: 10/11/21 15:09 Freq: Status: Active Protocol: Document 11/17/21 15:00 [facility] (Rec: 11/17/21 15:33 [facility] [email or web address]) Therapy Assessment Status Assessment Status Assessment Status Discharge Outpatient Past Medical History Cardiovascular History Hx Hypertension Yes Hx Vascular Surgery Yes Gastrointestinal History Hx Appendectomy Yes Musculoskeletal History Hx Orthopedic Surgery Yes: back Endocrine History Hx Hypothyroidism Yes HEENT History Hx Macular Degeneration Yes Hx Tonsillectomy Yes Reproductive History Hx Post Menopausal Yes Psychosocial History Hx Depression Yes Evaluation Information Problem Diagnosis low back pain, bilateral l.e. pain Onset 06/05/21 Additional Evaluation Detail Oswestry = 30% Functionally Impaired Subjective Information Pt reports that the cramping Query Text:As Reported By Patient/ pain in her legs does not Family exist any longer due to her increasing the amount of Sodium she has been consuming. She states that she went to her family physician, who assessed her lab values, finding critically low sodium. From there, she began drinking a gatorade a day, which has helped her feel much better. She says that she has an appointment with a park recreation manager who will be looking at her kidney function further. In regard to her back and leg pain, she states that it is much better and she no longer has complaints of pain in these areas. Pain Assessment Timing of Pain Assessment Timing of Pain Assessment Pre-Treatment Self Report Self Report Pain Level 0 Pain Score Pain Score 0: Self Report Cervical and Lumbar ROM L
== END 2021-11-17 16:06 | disposition home or self-care (01) ==
LOC: CHSPT 15:01
PROVIDERS: PCP Internal Medicine; Visit Provider Internal Medicine
DX: M54.50 Low back pain, unspecified (principal); M79.605 Pain in left leg; M79.604 Pain in right leg
CPT/HCPCS: 97014; 97110; 97140; 97161; 97530; G0283

== ENCOUNTER 2021-10-28 14:04 | Outpatient (CLI) | payer MEDICARE, SELFPAY ==
[2021-10-28 14:25] LABS: Anion Gap 7 mmol/L (8-16); Blood Urea Nitrogen 23 mg/dL (7-18); Carbon Dioxide 29 mmol/L (21-32); Chloride 92 mmol/L (98-108); Estimated Glomerular Filt Rate > 60; Glucose 101 mg/dL (70-99); Osmolality Calculated 269 mOsm/kg (285-295); Potassium 4.6 mmol/L (3.5-5.1); Sodium 128 mmol/L (136-145)
[2021-10-29 10:23] LABS: Basophils Absolute Auto 0.04 K/mm3 (0.00-0.10); Basophils Percent Auto 0.5 % (0.0-1.0); Eosinophils Absolute Auto 0.08 K/mm3 (0.02-0.50); Eosinophils Percent Auto 1.1 % (1.0-6.0); Hematocrit 36.7 % (35.0-42.0); Immature Granulocyte Absolute 0.03 K/mm3 (0.00-0.00); Immature Granulocyte Percent A 0.4 % (0.0-0.0); Lymphocytes Absolute Auto 1.48 K/mm3 (1.10-4.50); Lymphocytes Percent Auto 19.6 % (18.0-42.0); Mean Corpuscular HGB Conc 32.7 g/dL (32.0-36.0); Mean Corpuscular Hemoglobin 32.3 pg (27.0-31.0); Mean Corpuscular Volume 98.7 fL (78.0-102.0); Mean Platelet Volume 11.3 fl (9.2-11.8); Monocytes Absolute Auto 0.58 K/mm3 (0.10-0.90); Monocytes Percent Auto 7.7 % (2.0-11.0); Neutrophils Absolute Auto 5.3 K/mm3 (1.7-7.2); Neutrophils Percent Auto 70.7 % (50.0-70.0); Platelet Count Result 255 K/mm3 (150-420); Red Blood Count 3.72 M/mm3 (4.20-5.40); Red Cell Distribution Width 13.2 % (11.6-14.4); White Blood Count 7.6 K/mm3 (4.8-10.8)
== END 2021-10-28 14:05 | disposition home or self-care (01) ==
LOC: CHSLAB 14:05
PROVIDERS: PCP Internal Medicine; Visit Provider Internal Medicine
DX: E87.1 Hypo-osmolality and hyponatremia (principal); D64.9 Anemia, unspecified
CPT/HCPCS: 36415; 80048; 85025

== ENCOUNTER 2021-12-14 09:38 | Outpatient (CLI) | payer MEDICARE, SELFPAY ==
[2021-12-14 09:50] LABS: Basophils Absolute Auto 0.04 K/mm3 (0.00-0.10); Basophils Percent Auto 0.8 % (0.0-1.0); Eosinophils Absolute Auto 0.12 K/mm3 (0.02-0.50); Eosinophils Percent Auto 2.5 % (1.0-6.0); Hematocrit 35.6 % (35.0-42.0); Hemoglobin 11.7 g/dL (11.7-13.8); Immature Granulocyte Absolute 0.02 K/mm3 (0.00-0.00); Immature Granulocyte Percent A 0.4 % (0.0-0.0); Lymphocytes Absolute Auto 1.31 K/mm3 (1.10-4.50); Lymphocytes Percent Auto 27.8 % (18.0-42.0); Mean Corpuscular HGB Conc 32.9 g/dL (32.0-36.0); Mean Corpuscular Hemoglobin 32.1 pg (27.0-31.0); Mean Corpuscular Volume 97.8 fL (78.0-102.0); Mean Platelet Volume 10.1 fl (9.2-11.8); Monocytes Absolute Auto 0.47 K/mm3 (0.10-0.90); Neutrophils Absolute Auto 2.8 K/mm3 (1.7-7.2); Neutrophils Percent Auto 58.5 % (50.0-70.0); Platelet Count Result 244 K/mm3 (150-420); Red Blood Count 3.64 M/mm3 (4.20-5.40); Red Cell Distribution Width 13.3 % (11.6-14.4); White Blood Count 4.7 K/mm3 (4.8-10.8)
[2021-12-14 10:15] LABS: Anion Gap 5 mmol/L (8-16); Blood Urea Nitrogen 13 mg/dL (7-18); Calcium 8.8 mg/dL (8.5-10.1); Carbon Dioxide 30 mmol/L (21-32); Chloride 98 mmol/L (98-108); Estimated Glomerular Filt Rate > 60; Glucose 101 mg/dL (70-99); Osmolality Calculated 276 mOsm/kg (285-295); Potassium 4.5 mmol/L (3.5-5.1); Sodium 133 mmol/L (136-145)
== END 2021-12-14 09:39 | disposition home or self-care (01) ==
LOC: CHSLAB 09:41
PROVIDERS: PCP Internal Medicine; Visit Provider Internal Medicine
DX: E87.1 Hypo-osmolality and hyponatremia (principal); D64.9 Anemia, unspecified
CPT/HCPCS: 36415; 80048; 85025

== ENCOUNTER 2021-12-17 09:31 | Outpatient (CLI) | payer MEDICARE, SELFPAY ==
[2021-12-17 09:52] LABS: Sodium Urine Random 26 mmol/L (20-110)
[2021-12-17 10:13] LABS: Albumin Level 3.9 g/dL (3.4-5.0); Anion Gap 9 mmol/L (8-16); Blood Urea Nitrogen 17 mg/dL (7-18); Carbon Dioxide 29 mmol/L (21-32); Chloride 97 mmol/L (98-108); Estimated Glomerular Filt Rate > 60; Glucose 101 mg/dL (70-99); Osmolality Calculated 281 mOsm/kg (285-295); Phosphorus 4.6 mg/dL (2.6-4.7); Potassium 4.4 mmol/L (3.5-5.1); Sodium 135 mmol/L (136-145); Thyroid Stimulating Hormone 3.03 uIU/mL (0.36-3.74)
[2021-12-21 10:40] LABS: Osmolality, Urine 481 mOsm/kg (50-1200)
[2021-12-21 16:09] LABS: Albumin 4.4 g/dL (3.8-4.8); Alpha 1 Globulin 0.3 g/dL (0.2-0.3); Alpha 2 Globulin 0.7 g/dL (0.5-0.9); Beta 1 Globulin 0.3 g/dL (0.4-0.6); Gamma Globulin 0.7 g/dL (0.8-1.7); Interpretation Consistent with; Protein, Total 6.6 g/dL (6.1-8.1)
[2021-12-27 07:28] LABS: Cortisol Random 18.8 mcg/dL (***)
== END 2021-12-17 09:32 | disposition home or self-care (01) ==
LOC: CHSLAB 09:33
PROVIDERS: PCP Internal Medicine; Visit Provider Internal Medicine Nephrology
DX: E87.1 Hypo-osmolality and hyponatremia (principal)
CPT/HCPCS: 36415; 80069; 82533; 83930; 83935; 84155; 84165; 84300; 84443

== ENCOUNTER 2021-12-17 12:08 | Outpatient (CLI) | payer MEDICARE, SELFPAY ==
--- NOTE | ~2021-12-17 | CT_ITS ---
EXAMINATION: CT BRAIN W/O DATE: 12/17/2021 12:36 INDICATION: Hyponatremia. Hypoosmolality. TECHNIQUE: Computed tomography (CT) of the head was performed without intravenous contrast. The dose- length product was 605.33 mGy-cm. Automated exposure control and iterative reconstruction technique w ere employed. COMPARISON: No prior studies for comparison. FINDINGS: Normal brain parenchymal volume for age. Normal norman-white differentiation. No acute intrac ranial hemorrhage, infarction, mass or mass effect. There are scattered mild periventricular and subc ortical white matter changes, most likely related to small vessel ischemic disease (microangiopathy). No ventriculomegaly or midline shift. Midline sagittal images demonstrate a normal corpus callosum, c raniovertebral junction and sella turcica. Basilar cisterns are patent. Paranasal sinuses and mastoids are pneumatized. No depressed skull fractures. IMPRESSION: 1. No acute intracranial abnormality. Reviewed, dictated and finalized at location A.
== END 2021-12-17 12:09 | disposition home or self-care (01) ==
LOC: CHSIMG 12:09
PROVIDERS: PCP Internal Medicine; Visit Provider Internal Medicine Nephrology
DX: R51.9 Headache, unspecified (principal); E87.1 Hypo-osmolality and hyponatremia
CPT/HCPCS: 70450

== ENCOUNTER 2022-03-01 15:03 | Outpatient (RCR) | payer MEDICARE, SELFPAY ==
--- NOTE | 2022-03-01 16:06 | PTOPEVAL1 ---
Assessment and note entered by Johnna Emery DPT Evaluation Information Assessment Status Evaluation Diagnosis Lumbar radicular pain Onset 02/24/2022 Subjective Information Pt reports that she has been dealing with low back pain due to spinal stenosis and degeneration. She had surgery in 2019 on her back. Pt reports she is pain all the time except for when she initially gets up in the morning. She gets burning and aching in her back and legs and it can be so high that she gets nauseous. She reports some tightness in her stomach and lower back and this increases as the day goes on. She has some residual numbness from her surgery in 2019 that never went away. She reports pain with all activity but worse with walking and standing. She has a back brace that she wears occasionally but feels as though it doesn't always help. She is getting some injections in early March. They want to trial injections and PT before another surgery. She has a follow-up appointment with her referring MD in the middle of March. Pt wants to be able to walk again and wants to prevent surgery. Reported Pain Level Pain Score 5: Self Report Assessment PT Clinical Summary Pt presents to physical therapy with low back pain with radicular symptoms and demonstrates decreased strength, decreased mobility, antalgic gait, and impaired balance due to decreased R foot clearance. She presents with signs and symptoms consistent with lumbar radiculopathy. 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 She was provided with an HEP focused on improving mobility and strength within her tolerance. She will benefit from skilled PT to improve the aforementioned impairments, facilitate symptom relief, and return to functional and recreational activities. Plan of Care Interventions Electrical Stimulation,Hot Pack/Cold Pack,Manual Therapy,Neuro Re-education,Patient/Caregiver Educati,Therapeutic Activities,Therapeutic Exercise PT Services Indicated Yes Treatment Frequency and 2x week for 12 visits Duration These treatments will address the objective and functional deficits as defined above. The patient will be advanced safely and appropriately in order for the pat
== END 2022-04-07 13:19 | disposition home or self-care (01) ==
LOC: CHSPT 15:03
PROVIDERS: Visit Provider Nurse Practitioner Family
DX: M54.16 Radiculopathy, lumbar region (principal)
CPT/HCPCS: 97014; 97110; 97140; 97161; G0283

== ENCOUNTER 2022-06-18 10:37 | Outpatient (CLI) | payer MEDICARE, SELFPAY ==
[2022-06-18 10:59] LABS: Add Urine Microscopic? NO; Appearance Urine Clear (Clear); Bilirubin Urine Negative (Negative); Blood Urine Negative (Negative); Color Urine Light Yellow (Yellow); Glucose Urine UA Negative (Negative); Ketones Urine Negative (Negative); Leukocyte Esterase Ur Negative LEU/UL (Negative); Nitrate Urine Negative (Negative); Protein Urine Negative (Negative); Urobilinogen Urine 0.2 mg/dL (0.2-1.0)
[2022-06-18 11:00] LABS: Basophils Absolute Auto 0.07 K/mm3 (0.00-0.10); Basophils Percent Auto 1.4 % (0.0-1.0); Eosinophils Absolute Auto 0.14 K/mm3 (0.02-0.50); Eosinophils Percent Auto 2.7 % (1.0-6.0); Hematocrit 35.5 % (35.0-42.0); Hemoglobin 11.7 g/dL (11.7-13.8); Immature Granulocyte Absolute 0.02 K/mm3 (0.00-0.00); Immature Granulocyte Percent A 0.4 % (0.0-0.0); Lymphocytes Absolute Auto 1.64 K/mm3 (1.10-4.50); Lymphocytes Percent Auto 32.2 % (18.0-42.0); Mean Corpuscular Hemoglobin 31.5 pg (27.0-31.0); Mean Corpuscular Volume 95.7 fL (78.0-102.0); Mean Platelet Volume 10.3 fl (9.2-11.8); Monocytes Percent Auto 9.8 % (2.0-11.0); Neutrophils Absolute Auto 2.7 K/mm3 (1.7-7.2); Neutrophils Percent Auto 53.5 % (50.0-70.0); Platelet Count Result 291 K/mm3 (150-420); Red Blood Count 3.71 M/mm3 (4.20-5.40); Red Cell Distribution Width 12.4 % (11.6-14.4); White Blood Count 5.1 K/mm3 (4.8-10.8)
[2022-06-18 11:25] LABS: Alanine Aminotransferase 21 U/L (14-59); Albumin Level 3.8 g/dL (3.4-5.0); Alkaline Phosphatase 70 U/L (46-116); Anion Gap 6 mmol/L (8-16); Aspartate Amino Transferase 19 U/L (15-37); Bilirubin,Total 0.4 mg/dL (0.00-1.00); Blood Urea Nitrogen 11 mg/dL (7-18); Calcium 8.8 mg/dL (8.5-10.1); Carbon Dioxide 32 mmol/L (21-32); Chloride 99 mmol/L (98-108); Cholesterol 202 mg/dL (0-200); Estimated Glomerular Filt Rate > 60; Free T3 1.49 pg/mL (2.18-3.98); Free T4 Free Thyroxine 0.82 ng/dL (0.76-1.46); Glucose 97 mg/dL (70-99); HDL Direct 73 mg/dL (40-60); LDL Cholesterol Calculated 120 mg/dL (<130); Osmolality Calculated 283 mOsm/kg (285-295); Phosphorus 4.5 mg/dL (2.6-4.7); Potassium 4.6 mmol/L (3.5-5.1); Sodium 137 mmol/L (136-145); Total Protein 6.5 g/dL (6.4-8.2); Triglycerides 44 mg/dL (0-150)
== END 2022-06-18 10:38 | disposition home or self-care (01) ==
LOC: CHSLAB 10:39
PROVIDERS: PCP Internal Medicine; Visit Provider Internal Medicine Nephrology
DX: E03.4 Atrophy of thyroid (acquired) (principal); N39.0 Urinary tract infection, site not specified; I10 Essential (primary) hypertension; E78.2 Mixed hyperlipidemia
CPT/HCPCS: 36415; 80053; 80061; 80069; 81003; 84439; 84443; 84481; 85025

== ENCOUNTER 2022-10-20 13:58 | Outpatient (CLI) | payer MEDICARE, SELFPAY ==
--- NOTE | ~2022-10-20 | XR_ITS ---
EXAMINATION: XR hip LT min 2V DATE: 10/20/2022 14:33 INDICATION: Left hip pain radiating to the left groin TECHNIQUE: Anteroposterior and frog-leg lateral views of the left hip were obtained. COMPARISON: None. FINDINGS: Alignment is normal. No fracture or suspected avascular necrosis. Minimal left hip osteoarthritis wit h relatively preserved joint space and tiny marginal osteophytes along the femoral head. Mild bilater al sacroiliac osteoarthritis. L4 and L5 laminectomies with combined instrumented L4-S1 anterior and p osterior spinal fusion with bone graft cages at both disc spaces and with bilateral vertical lon and pedicle screw fixations. Multiple phleboliths in the pelvis. IMPRESSION: 1. No significant change in minimal left hip osteoarthritis. 2. Instrumented anterior and posterior spinal fusion at L4-S1. Reviewed, dictated and finalized at location A.
== END 2022-10-20 13:59 | disposition home or self-care (01) ==
LOC: CHSIMG 14:01
PROVIDERS: PCP Internal Medicine; Visit Provider Internal Medicine
DX: M25.552 Pain in left hip (principal); M16.12 Unilateral primary osteoarthritis, left hip; Z98.1 Arthrodesis status
CPT/HCPCS: 73502

== ENCOUNTER 2022-10-22 07:50 | Outpatient (CLI) | payer MEDICARE, SELFPAY ==
--- NOTE | ~2022-10-22 | MR_ITS ---
MRI of the lumbar spine Clinical History: Back pain Technique: Axial T2-weighted images, and sagittal T1-weighted, T2-weighted, and and T2 fat-sat images were acquired. COMPARISON: 10/05/2021 Findings: Posterior fusion hardware from L4 through S1, with bilateral rods and transfixing screws, i s unchanged. Laminectomy defects of L4 and L5 are again present. There are interbody fusion devices a t the L4-L5 and L5-S1 disc spaces. There is minimal grade 1 retrolisthesis of L2 over L3. No suspicio us bone marrow signal reality seen. There are reactive marrow signal changes about the L1-L2 disc spa ce due to underlying degenerative disc disease. At L1-L2, there is moderate to advanced degenerative disc narrowing. There is mild disc bulge. There is mild to moderate facet arthropathy. No central canal stenosis. There is severe right neural forami nal narrowing. Left neural foramen preserved. At L2-L3, there is disc bulge and moderate to advanced facet arthropathy. There is minimal central ca nal stenosis. There is severe bilateral neural foraminal narrowing. At L3-L4, disc bulge and facet arthropathy result in severe thecal sac compression/spinal canal steno sis. There is severe bilateral neural foraminal narrowing, left worse than right. At L4-L5 and L5-S1, there is no disc bulge or herniation. No spinal canal stenosis or neural foramina l narrowing at these levels. Paravertebral soft tissues are unremarkable aside from expected postoperative changes. Impression: Stable posterior fusion changes from L4 through S1, as detailed above. Severe degenerative spondylosis at L3-L4, as detailed above. Severe bilateral neural foraminal narrowing at L2-L3, and severe right neural foraminal narrowing at L1-L2. Reviewed, dictated and finalized at [facility]. Impression: Stable posterior fusion changes from L4 through S1, as detailed above. Severe degenerative spondylosis at L3-L4, as detailed above. Severe bilateral neural foraminal narrowing at L2-L3, and severe right neural f oraminal narrowing at L1-L2.
== END 2022-10-22 07:51 | disposition home or self-care (01) ==
LOC: CHSIMG 07:51
PROVIDERS: PCP Internal Medicine; Visit Provider Internal Medicine
DX: M54.16 Radiculopathy, lumbar region (principal); Z98.1 Arthrodesis status; M43.06 Spondylolysis, lumbar region; M48.061 Spinal stenosis, lumbar region without neurogenic claudication
CPT/HCPCS: 72148

== ENCOUNTER 2022-12-19 13:54 | Outpatient (RCR) | payer MEDICARE, SELFPAY ==
--- NOTE | 2022-12-19 14:41 | PTOPEVAL1 ---
Assessment and note entered by Oj Bhatt Evaluation Information Assessment Status Evaluation Diagnosis low back pain Onset 12/12/22 Subjective Information Pt. reports that she has had constant low back pain for a long time. She reports that she can only stand for about 5 minutes or less due to pain across the low back and weakness in the legs. She states that pain is mostly located in the middle of the lwo back and does notice some burning in the left thigh. She states that she is currently using a cane and has not fallen. She reports that her activity has been very limited due to the pain and weakness. She is able to drive, but only short distances. she reports that she has been able to complete her grocery shopping, but it is very difficult and slow. She has to sit frequently with these activities. She takes a sleep aid and states that laying flat is her most comfortable position. She reports that she is currently taking 2 tramadol/day. Pt. reports that her goal is to be able to walk without her cane and be able to stand for longer period of time. Reported Pain Level Pain Score 4: Self Report Assessment PT Clinical Summary Pt. is a 72 year old female who enters the clinic with chronic low back pain. She presents with impaired postural awareness, impaired gait, impaired l.e. strength, impaired trunk mobility, impaired balance and pain, resulting in functional decline. Continued skilled PT is indicated in order to improve these areas to allow for improved IADL performance. Plan of Care Interventions Electrical Stimulation,Gait Training,Hot Pack/Cold Pack,Manual Therapy,Neuro Re-education,Patient/ Caregiver Educati,Therapeutic Activities, Therapeutic Exercise PT Services Indicated Yes Treatment Frequency and 3x/week x 9 visits Duration These treatments will address the objective and functional deficits as defined above. The patient will be advanced safely and appropriately in order for the patient to progress towards his/her prior level of function. Additional exercises will be introduced and as well as a comprehensive home exercise program upon discharge, if needed, ?to ensure carryover of functional gains achieved in the clinic. This treatment plan has been reviewed and agreement upon by the patient.
--- NOTE | 2022-12-19 14:41 | OPREHPOC ---
Outpatient Therapy Plan of Care This is a Multidisciplinary Plan of Care that may contain components documented by all disciplines (PT, OT, and ST.) PT Problem 1 PT Problem #1 Knowledge Deficit PT Goal 1 Goal Independent with a HEP addressing mobility and strength Target Visit 2 PT Problem 2 PT Problem #2 Impaired Gait PT Goal 1 Goal Pt. will be able to ambulate 6 minutes for a distance of 600' or greater without an AD demonstrating improved gait efficiency. Target Visit 9 PT Problem 3 PT Problem #3 Impaired Functional Mobil PT Goal 1 Goal Pt. will be able to stand for duration of 15 minutes without rest to complete ADL's Target Visit 9 PT Problem 4 PT Problem #4 Impaired Strength PT Goal 1 Goal Pt. will increase proximal l.e. strength to 4+/5 or greater in order to improve stabilty and standing endurance. Target Visit 9
--- NOTE | 2023-01-26 16:07 | OPREHPOC ---
Outpatient Therapy Plan of Care This is a Multidisciplinary Plan of Care that may contain components documented by all disciplines (PT, OT, and ST.) PT Problem 1 PT Problem #1 Knowledge Deficit PT Goal 1 Goal Independent with a HEP addressing mobility and strength Target Visit 2 Progress Met PT Problem 2 PT Problem #2 Impaired Gait PT Goal 1 Goal Pt. will be able to ambulate 6 minutes for a distance of 800' or greater without an AD demonstrating improved gait efficiency. Target Visit 17 Comment upgraded PT Problem 3 PT Problem #3 Impaired Functional Mobil PT Goal 1 Goal Pt. will be able to stand for duration of 15 minutes without rest to complete ADL's Target Visit 17 Comment progressing PT Problem 4 PT Problem #4 Impaired Strength PT Goal 1 Goal Pt. will increase proximal l.e. strength to 4+/5 or greater in order to improve stabilty and standing endurance. Target Visit 17 Comment progressing
--- NOTE | 2023-01-26 16:07 | PTOPEVAL1 ---
Assessment and note entered by Margoth Sarkar DPT Evaluation Information Assessment Status Re-evaluation Diagnosis low back pain Onset 12/12/22 Subjective Information She reports she has noticed improvements since starting PT. She reports she has improved gait with increased distances. She reports she can stand 7-10 minutes before back pain sets in. She reports she has not been using the . She reports she continues to have back pain during the night and when she gets out of bed. Reported Pain Level Pain Score 4: Self Report Assessment PT Clinical Summary Patient has attended 9 visits of skilled PT with good improvements towards goals. Patient demonstrates increased lumbar ROM and slight increase in LE strength but continues to have pain with prolonged activities. Patient reports improved ability to walk but has pain with sleeping and getting up out of bed. She would benefit from continued skilled PT to address impairments and return to PLOF. Plan of Care Interventions Electrical Stimulation,Gait Training,Hot Pack/Cold Pack,Manual Therapy,Neuro Re-education,Patient/ Caregiver Educati,Therapeutic Activities, Therapeutic Exercise PT Services Indicated Yes Treatment Frequency and 2x weekly for 8 visits Duration These treatments will address the objective and functional deficits as defined above. The patient will be advanced safely and appropriately in order for the patient to progress towards his/her prior level of function. Additional exercises will be introduced and as well as a comprehensive home exercise program upon discharge, if needed, ?to ensure carryover of functional gains achieved in the clinic. This treatment plan has been reviewed and agreement upon by the patient.
== END 2023-02-07 23:59 | disposition home or self-care (01) ==
LOC: CHSPT 13:54
DX: M54.50 Low back pain, unspecified (principal); M48.061 Spinal stenosis, lumbar region without neurogenic claudication; M51.36 Other intervertebral disc degeneration, lumbar region; M43.06 Spondylolysis, lumbar region
CPT/HCPCS: 97014; 97110; 97112; 97140; 97150; 97161; 97530; 97750; G0283

== ENCOUNTER 2023-04-17 13:44 | Outpatient (CLI) | payer MEDICARE, SELFPAY ==
--- NOTE | 2023-04-17 13:55 | ECG_ITS ---
Measurements Intervals [place] Rate: 79 P: 1 MA: 156 QRS: -4 QRSD: 126 T: 77 QT: 367 QTc: 421 Interpretive Statements SINUS RHYTHM RIGHT BUNDLE BRANCH BLOCK ABNORMAL ECG NO PREVIOUS ECG AVAILABLE FOR COMPARISON Electronically Signed On 04-17-2023 14:15:12 TOLL LINE REPAIRER by Chase Leahy D.O.
--- NOTE | 2023-05-23 10:42 | WPDHOLTEREM ---
Holter/Event Monitor Holter/Event Monitor Date of procedure: 04/17/23 Holter/Event Procedure: Event Monitor Indications: Palpitations Conclusion: 1. 23 days event monitor between 04/17/23-05/16/23. There are 33 available transmissions for analysis. 2. Predominant rhythm is sinus rhythm. HR range 50-144 bpm; average HR 73 bpm. 3. There are occasional premature supraventricular complexes with total burden of <1%. No supraventricular tachycardia. 4. There are occasional premature ventricular complexes with total burden of <1%. There is 1 episode of ventricular tachycardia at 144 bpm lasting 4 beats on 05/13/23 at 03:50. 5. No significant pauses greater than 2 seconds. 6. There are 8 episodes of symptoms of skipped beats, lightheadedness, dizziness, heart racing and symptom other than listed which demonstrate sinus rhythm, HR range 71-110 bpm with 2 episodes with PAC's and 2 episodes with PVC's.
== END 2023-04-17 13:45 | disposition home or self-care (01) ==
PROVIDERS: PCP Internal Medicine; Visit Provider Internal Medicine
DX: R42 Dizziness and giddiness (principal); R00.2 Palpitations; E03.4 Atrophy of thyroid (acquired); E78.2 Mixed hyperlipidemia; R73.01 Impaired fasting glucose; I10 Essential (primary) hypertension; G62.9 Polyneuropathy, unspecified; M25.552 Pain in left hip; I45.10 Unspecified right bundle-branch block; R94.31 Abnormal electrocardiogram [ECG] [EKG]
CPT/HCPCS: 93005; 93270

== ENCOUNTER 2023-04-18 09:06 | Outpatient (CLI) | payer MEDICARE, SELFPAY ==
[2023-04-18 09:22] LABS: Basophils Absolute Auto 0.07 K/mm3 (0.00-0.10); Eosinophils Absolute Auto 0.12 K/mm3 (0.02-0.50); Eosinophils Percent Auto 1.8 % (1.0-6.0); Hematocrit 37.2 % (35.0-42.0); Hemoglobin 12.3 g/dL (11.7-13.8); Immature Granulocyte Absolute 0.03 K/mm3 (0.00-0.00); Immature Granulocyte Percent A 0.4 % (0.0-0.0); Lymphocytes Absolute Auto 1.64 K/mm3 (1.10-4.50); Lymphocytes Percent Auto 24.2 % (18.0-42.0); Mean Corpuscular HGB Conc 33.1 g/dL (32.0-36.0); Mean Corpuscular Hemoglobin 31.4 pg (27.0-31.0); Mean Corpuscular Volume 94.9 fL (78.0-102.0); Mean Platelet Volume 9.9 fl (9.2-11.8); Monocytes Absolute Auto 0.47 K/mm3 (0.10-0.90); Monocytes Percent Auto 6.9 % (2.0-11.0); Neutrophils Absolute Auto 4.5 K/mm3 (1.7-7.2); Neutrophils Percent Auto 65.7 % (50.0-70.0); Platelet Count Result 306 K/mm3 (150-420); Red Blood Count 3.92 M/mm3 (4.20-5.40); White Blood Count 6.8 K/mm3 (4.8-10.8)
[2023-04-18 09:24] LABS: Appearance Urine Clear (Clear); Bilirubin Urine Negative (Negative); Blood Urine Negative (Negative); Color Urine Light Yellow (Yellow); Glucose Urine UA Negative (Negative); Ketones Urine Negative (Negative); Leukocyte Esterase Ur Negative LEU/UL (Negative); Nitrate Urine Negative (Negative); Protein Urine Negative (Negative); Urobilinogen Urine 0.2 mg/dL (0.2-1.0); pH Urine 7.5 (5.0-8.0)
[2023-04-18 09:27] LABS: Add Urine Microscopic? NO
[2023-04-18 09:31] LABS: Hemoglobin A1C 5.8 % (<5.7)
[2023-04-18 10:10] LABS: Alanine Aminotransferase 26 U/L (14-59); Albumin Level 3.6 g/dL (3.4-5.0); Alkaline Phosphatase 71 U/L (46-116); Anion Gap 6 mmol/L (8-16); Aspartate Amino Transferase 15 U/L (15-37); Bilirubin,Total 0.3 mg/dL (0.00-1.00); Blood Urea Nitrogen 9 mg/dL (7-18); Carbon Dioxide 32 mmol/L (21-32); Chloride 99 mmol/L (98-108); Cholesterol 218 mg/dL (0-200); Estimated Glomerular Filt Rate > 60; Free T3 1.74 pg/mL (2.18-3.98); Free T4 Free Thyroxine 0.84 ng/dL (0.76-1.46); Glucose 102 mg/dL (70-99); HDL Direct 83 mg/dL (40-60); LDL Cholesterol Calculated 125 mg/dL (<130); Magnesium 2.1 mg/dL (1.8-2.4); Osmolality Calculated 282 mOsm/kg (285-295); Potassium 4.4 mmol/L (3.5-5.1); Sodium 137 mmol/L (136-145); Thyroid Stimulating Hormone 4.68 uIU/mL (0.36-3.74); Total Protein 6.6 g/dL (6.4-8.2); Triglycerides 49 mg/dL (0-150); Vitamin B12 380 pg/mL (193-986)
[2023-04-18 10:21] LABS: Erythrocyte Sedimentation Rate 14 mm/hr (0-20)
== END 2023-04-18 09:07 | disposition home or self-care (01) ==
LOC: CHSLAB 09:09
PROVIDERS: PCP Internal Medicine; Visit Provider Internal Medicine
DX: R42 Dizziness and giddiness (principal); R00.2 Palpitations; E03.4 Atrophy of thyroid (acquired); E78.2 Mixed hyperlipidemia; R73.01 Impaired fasting glucose; I10 Essential (primary) hypertension; M25.552 Pain in left hip; G62.9 Polyneuropathy, unspecified
CPT/HCPCS: 36415; 80053; 80061; 81003; 82607; 83036; 83735; 84439; 84443; 84481; 85025; 85652

== ENCOUNTER 2023-04-27 16:09 | Outpatient (RCR) | payer MEDICARE, SELFPAY ==
--- NOTE | 2023-05-10 18:01 | OPREHPOC ---
Outpatient Therapy Plan of Care This is a Multidisciplinary Plan of Care that may contain components documented by all disciplines (PT, OT, and ST.) PT Problem 1 PT Problem #1 Knowledge Deficit PT Goal 1 Goal 1. independent and compliant with home dodie and sleeping position. Target Visit 4 PT Problem 2 PT Problem #2 Impaired Functional Mobil PT Goal 1 Goal 1. patient to report no more dizziness episodes 2. patient to elimate needs for medications to treat dizziness 3. DHI to display less than 20% functional deficits Target Visit 4
--- NOTE | 2023-05-10 18:02 | PTOPEVAL1 ---
Assessment and note entered by JT File, PT Evaluation Information Assessment Status Evaluation Diagnosis dizziness Onset 04/21/23 Subjective Information patient reports for the past 1-2 months she has felt off. she reports for the past 2 weeks she has had dizziness. she reports she has symptoms all the time. she reports feeling dizzy and nauseated. she reports she has clicking in the R ear at times. she reports she is getting a brain MRI on 05/04/23. she reports rolling to the side is bothersome when in bed. she struggles to look at screens/phone. she is on a 30 day heart monitor. she reports she is taking dramamine, but it is not helping. Assessment PT Clinical Summary mrs. maza is a 72 yo woman who presents to skilled PT services for evaluation of dizziness. she presents negative today for tests of BPPV. however, given the patients slight improvements in symptoms with L candi hallpike maneuver, patient would benefit from a short bout of skilled PT to treat her dizziness and symptoms. Plan of Care Interventions Neuro Re-education,Therapeutic Activities, Therapeutic Exercise,Other Other Interventions cannolith repositioning PT Services Indicated Yes Treatment Frequency and 1x weekly for 4 visits Duration These treatments will address the objective and functional deficits as defined above. The patient will be advanced safely and appropriately in order for the patient to progress towards his/her prior level of function. Additional exercises will be introduced and as well as a comprehensive home exercise program upon discharge, if needed, ?to ensure carryover of functional gains achieved in the clinic. This treatment plan has been reviewed and agreement upon by the patient.
--- NOTE | 2023-05-18 15:44 | OPREHPOC ---
Outpatient Therapy Plan of Care This is a Multidisciplinary Plan of Care that may contain components documented by all disciplines (PT, OT, and ST.) PT Problem 1 PT Problem #1 Knowledge Deficit PT Goal 1 Goal 1. independent and compliant with home dodie and sleeping position. Target Visit 4 Progress Met PT Problem 2 PT Problem #2 Impaired Functional Mobil PT Goal 1 Goal 1. patient to report no more dizziness episodes 2. patient to elimate needs for medications to treat dizziness 3. DHI to display less than 20% functional deficits Target Visit 12 Progress Not Met PT Problem 3 PT Problem #3 Impaired Balance PT Goal 1 Goal 1. tinetti to display 5 point or better improvement to decrease fall risk 2. 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
--- NOTE | 2023-05-18 15:45 | PTOPREEVAL ---
Assessment and note entered by JT File, PT Evaluation Information Assessment Status Re-evaluation Diagnosis dizziness, imbalance Onset 04/21/23 Subjective Information patient reports he symptoms have continued. she reports she is getting close to the end of her prednisone dose pack. she reports she forgot to take her meclizine yesterday. she reports riding in a car to [place] this weekend was awful. she reports the ride back was a bit better as she was able to block some inputs with her sunglasses. she reports she has been compliant with her sitting cawthorne minor exercises. she reports she has not scheduled an apointment with the ENT yet. overall, she reports she is better than she was prior to coming to therapy. she reports she is much less nauseated. Reported Pain Level Pain Score 0: Self Report Assessment PT Clinical Summary mrs. maza presents to skilled PT for 4th visit for BPPV. she continues to have symptoms of dizziness, imbalance, and vertigo. however, candi hallpike/dodie continue to be negative bilaterally . suggest patient seek ENT evaluation for the continued symptoms. however, skilled PT will continue with new deficits noted in balance via the tinetti and 5x sit to stand tests. patient would benefit from continued therapy focused on balance to decrease fall risk and improve safety with ambulation/functional activities. Plan of Care Interventions Gait Training,Neuro Re-education,Patient/Caregiver Educati,Therapeutic Activities,Therapeutic Exercise Other Interventions cannolith repositioning PT Services Indicated Yes Treatment Frequency and continue skilled PT 2x weekly for 8 more visits Duration These treatments will address the objective and functional deficits as defined above. The patient will be advanced safely and appropriately in order for the patient to progress towards his/her prior level of function. Additional exercises will be introduced and as well as a comprehensive home exercise program upon discharge, if needed, ?to ensure carryover of functional gains achieved in the clinic. This treatment plan has been reviewed and agreement upon by the patient.
--- NOTE | 2023-06-01 17:19 | PCPTNOTE ---
Patient called to cancel due to hurting too bad
== END 2023-05-30 20:00 | disposition home or self-care (01) ==
LOC: CHSPT 16:09
PROVIDERS: PCP Internal Medicine; Visit Provider Internal Medicine
DX: H81.13 Benign paroxysmal vertigo, bilateral (principal)
CPT/HCPCS: 95992; 97110; 97112; 97161; 97530

== ENCOUNTER 2023-05-04 09:42 | Outpatient (CLI) | payer MEDICARE, SELFPAY ==
--- NOTE | ~2023-05-04 | MR_ITS ---
EXAMINATION: MR brain IAC wo/w con DATE: 05/04/2023 11:23 INDICATION: Vertigo. Nystagmus. TECHNIQUE: Magnetic resonance imaging (MRI) of the brain, brainstem, and internal auditory canals was performed without and with 20 mL MultiHance intravenous contrast. COMPARISON: Brain MRI 03/08/2008 FINDINGS: There is no intracranial hemorrhage, acute infarction, or abnormal intracranial mass lesion . There are scattered areas of nonspecific increased T2-weighted signal intensity in the cerebral whi te matter, which is within normal limits for the patient's age. The ventricles are normal in size. Th e paranasal sinuses are clear. The orbits are normal. The mastoid air cells are normal. The internal auditory canals, inner ears, tympanic cavities, and mastoid air cells are normal. IMPRESSION: 1. Normal brain. Reviewed, dictated and finalized at location A. HEMISTRY TECHNOLOGIST IMPRESSION: 1. Normal brain.
== END 2023-05-04 09:43 | disposition home or self-care (01) ==
PROVIDERS: PCP Internal Medicine; Visit Provider Internal Medicine
DX: R42 Dizziness and giddiness (principal); H55.00 Unspecified nystagmus
CPT/HCPCS: 70553; A9577

== ENCOUNTER 2023-11-03 08:48 | Outpatient (CLI) | payer MEDICARE, SELFPAY ==
[2023-11-03 09:26] LABS: Hematocrit 35.1 % (35.0-42.0); Hemoglobin 11.4 g/dL (11.7-13.8); Mean Corpuscular HGB Conc 32.5 g/dL (32-36); Mean Corpuscular Hemoglobin 30.4 pg (27.0-31.0); Mean Corpuscular Volume 93.6 fL (78.0-102.0); Mean Platelet Volume 10.2 fl (9.2-11.8); Platelet Count Result 268 K/mm3 (150-420); Red Blood Count 3.75 M/mm3 (4.20-5.40); Red Cell Distribution Width 13.6 % (11.6-14.4); White Blood Count 6.2 K/mm3 (4.8-10.8)
[2023-11-03 09:34] LABS: Hemoglobin A1C 5.7 % (<5.7)
[2023-11-03 10:24] LABS: Alanine Aminotransferase 37 U/L (14-59); Albumin Level 3.4 g/dL (3.4-5.0); Alkaline Phosphatase 66 U/L (46-116); Anion Gap 9 mmol/L (4-12); Aspartate Amino Transferase 25 U/L (15-37); Bilirubin,Total 0.5 mg/dL (0.00-1.00); Blood Urea Nitrogen 11 mg/dL (7-18); Calcium 8.9 mg/dL (8.5-10.1); Carbon Dioxide 28 mmol/L (21-32); Chloride 103 mmol/L (98-108); Cholesterol 190 mg/dL (0-200); Creatine Kinase 49 U/L (26-192); Estimated Glomerular Filt Rate > 60; Free T3 1.88 pg/mL (2.18-3.98); Free T4 Free Thyroxine 1.04 ng/dL (0.76-1.46); Glucose 114 mg/dL (70-99); HDL Direct 62 mg/dL (40-60); LDL Cholesterol Calculated 115 mg/dL (<130); Osmolality Calculated 290 mOsm/kg (285-295); Potassium 4.6 mmol/L (3.5-5.1); Sodium 140 mmol/L (136-145); Thyroid Stimulating Hormone 0.74 uIU/mL (0.36-3.74); Total Protein 6.3 g/dL (6.4-8.2); Triglycerides 63 mg/dL (0-150); Vitamin B12 395 pg/mL (193-986)
== END 2023-11-03 08:49 | disposition home or self-care (01) ==
LOC: CHSLAB 08:50
PROVIDERS: PCP Internal Medicine; Visit Provider Internal Medicine
DX: R53.82 Chronic fatigue, unspecified (principal); E03.4 Atrophy of thyroid (acquired); E78.2 Mixed hyperlipidemia; G62.9 Polyneuropathy, unspecified; I10 Essential (primary) hypertension; R73.01 Impaired fasting glucose
CPT/HCPCS: 36415; 80053; 80061; 82043; 82550; 82607; 83036; 84439; 84443; 84481; 85027

== ENCOUNTER 2023-11-07 15:45 | Outpatient (CLI) | payer MEDICARE, SELFPAY ==
[2023-11-07 16:07] LABS: Immature Reticulocyte Fraction 10.2 % (2.0-16.52); Reticulocyte Hemoglobin Conten 34.3 pg (28.0-35.0); Reticulocyte Percent 1.75 % (0.50-1.50); Reticulocytes Absolute 0.07 M/mm3 (0.02-0.10)
[2023-11-07 16:34] LABS: Ferritin 91 ng/mL (8-252); Iron 63 ug/dL (50-170); Magnesium 2.1 mg/dL (1.8-2.4)
== END 2023-11-07 15:46 | disposition home or self-care (01) ==
LOC: CHSLAB 15:47
PROVIDERS: PCP Internal Medicine; Visit Provider Internal Medicine
DX: D64.9 Anemia, unspecified (principal); R00.2 Palpitations
CPT/HCPCS: 36415; 82728; 83540; 83735; 85046

== ENCOUNTER 2023-11-16 11:03 | Outpatient (CLI) | payer MEDICARE, SELFPAY ==
[2023-11-16 12:42] LABS: Occult Blood Negative (Negative)
[2023-11-16 12:42] LABS: Occult Blood Negative (Negative)
[2023-11-16 12:42] LABS: Occult Blood Negative (Negative)
== END 2023-11-16 11:04 | disposition home or self-care (01) ==
LOC: CHSLAB 11:05
PROVIDERS: PCP Internal Medicine; Visit Provider Internal Medicine
DX: D64.9 Anemia, unspecified (principal)
CPT/HCPCS: 82272

== ENCOUNTER 2023-12-04 08:18 | Outpatient (CLI) | payer MEDICARE, SELFPAY ==
--- NOTE | 2023-12-04 08:25 | EST_ITS ---
Patient Info Name: Avis Gale Age: 73 years : 1950 Gender: Female Ht: 65 in Wt: 198 lbs BSA: 2.06 m2 Exam Date: 12/04/2023 9:22 AM Exam Location: [facility] Patient Status: Outpatient Admit Date: 12/04/2023 Staff Ordering Physician: Chase Leahy DO Attending Provider: Chase Leahy DO Exam Type: CA stress jocelynn w NM Summary 1. 1. Negative lexiscan stress test for ischemic ST changes by ECG criteria. 2. 2. Baseline hypertension. 3. 3. Nuclear scan to follow and will be reported separately. Please correlate with it. Protocol: LEXISCAN Stress ECG Details Stage: REST Duration (min): 2 min : 42 sec HR (bpm): 70 SBP (mmHg): 158 DBP (mmHg): 68 Stage: REST Duration (min): 9 min : 35 sec HR (bpm): 70 SBP (mmHg): 158 DBP (mmHg): 68 Stage: STAGE 1 Duration (min): 0 min : 45 sec HR (bpm): 74 SBP (mmHg): 158 DBP (mmHg): 68 Stage: RECOVERY Duration (min): 0 min : 14 sec HR (bpm): 88 SBP (mmHg): 158 DBP (mmHg): 68 Stage: RECOVERY Duration (min): 1 min : 14 sec HR (bpm): 113 SBP (mmHg): 158 DBP (mmHg): 68 Stage: RECOVERY Duration (min): 2 min : 14 sec HR (bpm): 104 SBP (mmHg): 140 DBP (mmHg): 83 Stage: RECOVERY Duration (min): 3 min : 14 sec HR (bpm): 103 SBP (mmHg): 147 DBP (mmHg): 81 Stage: RECOVERY Duration (min): 4 min : 14 sec HR (bpm): 99 SBP (mmHg): 143 DBP (mmHg): 76 Stage: RECOVERY Duration (min): 5 min : 14 sec HR (bpm): 99 SBP (mmHg): 144 DBP (mmHg): 71 Stage: RECOVERY Duration (min): 6 min : 14 sec HR (bpm): 92 SBP (mmHg): 144 DBP (mmHg): 71 Stage: RECOVERY Duration (min): 6 min : 59 sec HR (bpm): 98 SBP (mmHg): 141 DBP (mmHg): 79 Rest HR: 70 bpm Peak HR: 116 bpm Rest Sys BP: 158 mmHg Peak Sys BP: 147 mmHg Max Pred HR: 147 bpm % Max Pred HR: 79 % Target HR: 125 bpm Max RPP: 17,052 bpm*mmHg Termination Reason: Completed Protocol Cardiac Symptoms: None Total Time: 0 min : 45 sec Rest Lennon BP: 68 mmHg Peak Lennon BP: 81 mmHg Total Dose: 0.4 mg Resting ECG Sinus rhythm, RBBB. Stress ECG No ST changes. Arrhythmias None. Report Signatures
--- NOTE | 2023-12-07 19:03 | WPDCARIOSTRE ---
Nuclear Stress Test INDICATIONS Indications: Chest pain PROCEDURE Procedure Performed: Myocardial Perf Spect-Multi Procedure: Patient underwent a lexiscan stress test and immediately was injected with 31.7 mCi of cardiolyte. Multiple tomographic images were obtained. There are of adequate quality. There is evidence of a large, severe apical perfusion defect with stress imaging. In addition, there is moderate size, severe septal perfusion defect with stress imaging. A separate resting images were obtained after patient was injected with 7.8 mCi of cardiolyte. Multiple tomographic images were obtained. There are of adequate quality. There is evidence of a large, severe apical perfusion defect with rest imaging. In addition, there is moderate size, mild septal perfusion defect with rest imaging. CONCLUSION Conclusion: 1. Myocardial perfusion imaging demonstrating a fixed large size apical, and a moderate size septal perfusion improves during stress imaging suggestive of breast attenuation artifact. 2. No evidence of reversible ischemia. 3. Left ventriculogram demonstrates normal measured ejection fraction of 64% with no wall motion abnormalities. 4. TID score 1.05 is normal.
== END 2023-12-04 08:19 | disposition home or self-care (01) ==
LOC: CHSIMG 08:19
PROVIDERS: PCP Internal Medicine; Visit Provider Internal Medicine Cardiovascular Disease
DX: R07.9 Chest pain, unspecified (principal); I47.29 Other ventricular tachycardia
CPT/HCPCS: 78452; 93017; A9502; J2785

== ENCOUNTER 2023-12-21 13:13 | Outpatient (CLI) | payer MEDICARE, SELFPAY ==
--- NOTE | 2023-12-21 13:19 | ECHO_ITS ---
Patient Info Name: Avis Gale Age: 73 years : 1950 Gender: Female Ht: 65 in Wt: 200 lbs BSA: 2.07 m2 HR: 80 bpm BP: 157 / 90 mmHg Technical Quality: Good Exam Date: 12/21/2023 1:16 PM Exam Location: [facility] Patient Status: Outpatient Admit Date: 12/21/2023 Staff Ordering Physician: Chase Leahy DO Blasting Machine Operator: Jean Claude Ferguson RDCS Attending Provider: Chase Leahy DO Referring Physician: Armond DONALDSON; Exam Type: CA echo doppler color flow Study Info Indications I47.29 - Other ventricular tachycardia Complete two-dimensional, color flow and Doppler transthoracic echocardiogram is performed. Summary 1. Complete two-dimensional, color flow and Doppler transthoracic echocardiogram is performed. 2. Left ventricular chamber dimension is normal. 3. Left ventricular systolic function is normal, estimated at 60-65%. 4. The left ventricular diastolic function is grade I diastolic dysfunction. 5. E/e' 11 is mildly elevated. 6. Left atrial chamber dimension is moderately enlarged. 7. There is mild mitral valve regurgitation. 8. There is trace tricuspid valve regurgitation. 9. No pulmonary hypertension, estimated pulmonary arterial systolic pressure is 34 mmHg. Left Ventricle E/e' 11 is mildly elevated. Left ventricular chamber dimension is normal. Left ventricular systolic function is normal, estimated at 60-65%. The left ventricular diastolic function is grade I diastolic dysfunction. Right Ventricle Right ventricular systolic function is normal and with normal TAPSE 2.3 cm. Right ventricular chamber dimension is normal. Left Atria Left atrial chamber dimension is moderately enlarged. Right Atria Right atrial chamber dimension is normal. Aortic Valve The aortic valve is trileaflet. There is no aortic valve stenosis. There is no aortic valve regurgitation. Pulmonic Valve There is no pulmonic regurgitation. Mitral Valve There is no mitral valve stenosis. There is mild mitral valve regurgitation. Tricuspid Valve There is trace tricuspid valve regurgitation. No pulmonary hypertension, estimated pulmonary arterial systolic pressure is 34 mmHg. Pericardium/Pleural There is no pericardial effusion. Inferior Vena Cava Normal inferior vena cava with >50% collapse upon inspiration consistent with normal right atrial pressure, 5 mmHg. Aorta The aortic root size at the sinus of Valsalva is normal. Left Ventricular Outflow Tract Name Value Normal LVOT 2D LVOT Diameter 1.9 cm LVOT Doppler LVOT Peak Velocity 105 cm/s LVOT Peak Gradient 4 mmHg LVOT Mean Gradient 2 mmHg LVOT VTI 25 cm LVOT VTI/AV VTI Ratio 0.9 LVOT Stroke Volume 74 ml Pulmonic Valve Name Value Normal PV Doppler PV Peak Velocity 89 cm/s PV Peak Gradient 3 mmHg
== END 2023-12-21 13:14 | disposition home or self-care (01) ==
LOC: CHSIMG 13:15
PROVIDERS: PCP Internal Medicine; Visit Provider Internal Medicine Cardiovascular Disease
DX: I47.29 Other ventricular tachycardia (principal); I34.0 Nonrheumatic mitral (valve) insufficiency
CPT/HCPCS: 93306

== ENCOUNTER 2024-03-01 15:51 | Outpatient (CLI) | payer MEDICARE, SELFPAY ==
--- NOTE | ~2024-03-01 | XR_ITS ---
3 VIEWS LUMBAR SPINE Ordering provider: Priscilla Nunes MD History: . Low back pain radiates down Rt. leg x6 months . Comparison: None. FINDINGS: VERTEBRAL BODIES:Postoperative changes at the level of L4, L5 and S1. No visible fracture or subluxa tion. Degenerative changes of the spine. DISK SPACES: Degenerative disc disease at the level of L1-L2, and L2-L3. Disc spacers seen at the lev el of L4-L5 and L5-S1. Mild levoscoliosis. SOFT TISSUES: Aortic atherosclerotic changes. IMPRESSION: No acute osseous abnormality lumbar spine. Postoperative changes. Multilevel degenerative disc disease. Reviewed, dictated and finalized at location A.
--- NOTE | ~2024-03-01 | XR_ITS ---
HISTORY: Low back pain radiates down Rt. leg x6 months COMPARISON: None TECHNIQUE: 2 views of the right were performed. FINDINGS: No acute fracture, erosion, lytic or sclerotic lesion. Femoral acetabular joint space is preserved and alignment is normal. Significant degenerative disease within the pubic symphysis. Soft tissues are unremarkable without foreign body or significant calcification. IMPRESSION: No acute fracture, as detailed above. MRI examination lumbar spine for further evaluation, given patient's symptoms. Reviewed, dictated and finalized at location A.
== END 2024-03-01 15:52 | disposition home or self-care (01) ==
LOC: CHSIMG 15:55
PROVIDERS: PCP Internal Medicine; Visit Provider Internal Medicine
DX: M54.16 Radiculopathy, lumbar region (principal); M25.551 Pain in right hip; M51.369 Other intervertebral disc degeneration, lumbar region without mention of lumbar back pain or lower extremity pain
CPT/HCPCS: 72100; 73502

== ENCOUNTER 2024-03-14 08:14 | Outpatient (CLI) | payer MEDICARE, SELFPAY ==
--- NOTE | ~2024-03-14 | MR_ITS ---
EXAMINATION: MR lumbar spine wo con DATE: 03/14/2024 09:03 INDICATION: Low back pain. TECHNIQUE: Magnetic resonance imaging (MRI) of the lumbar spine was performed without intravenous con trast. COMPARISON: Lumbar spine MRI 10/22/2022 FINDINGS: There is 10 degrees levoscoliosis of thoracolumbar spine. There is 3 mm retrolisthesis of L 1 on L2 and L2 on L3. Vertebral body heights are normal. There is severely decreased disc height at T 11-T12 and L1-L2 and moderately decreased disc height at L2-L3 and L3-L4. There are changes of anteri or and posterior fusion procedures from L4 to S1 with interbody devices and pedicle screws. The dista l spinal cord signal intensity is normal. The conus medullaris is at L1-L2. The following disc levels are specifically discussed: L1-L2: The disc is bulging and has an annular fissure. There is mild right and moderate left facet juliane int osteoarthritis. There is mild right and moderate left neural foraminal stenosis. There is mild ce ntral canal stenosis. L2-L3: The disc is bulging. There is mild bilateral facet joint osteoarthritis. There is moderate cynthia ateral neural foraminal stenosis. There is mild central canal stenosis. L3-L4: The disc is bulging and has an annular fissure. There is severe bilateral facet joint osteoart hritis. There is moderate bilateral neural foraminal stenosis. There is mild central canal stenosis. There is severe stenosis of left lateral recess. L4-L5: There is no facet joint hypertrophy. There is no neural foraminal stenosis. There is no centra l canal stenosis. There is posterior decompression. L5-S1: There is no facet joint hypertrophy. There is no neural foraminal stenosis. There is no centra l canal stenosis. There is posterior decompression. IMPRESSION: 1. Severe lumbar spondylosis, stable from 10/22/2022. 2. Anterior and posterior fusion procedures from L4 to S1. Reviewed, dictated and finalized at location A.
== END 2024-03-14 08:15 | disposition home or self-care (01) ==
PROVIDERS: PCP Internal Medicine; Visit Provider Internal Medicine
DX: M54.50 Low back pain, unspecified (principal); M43.06 Spondylolysis, lumbar region; Z98.1 Arthrodesis status
CPT/HCPCS: 72148

== ENCOUNTER 2024-04-08 10:43 | Outpatient (RCR) | payer MEDICARE, SELFPAY ==
--- NOTE | 2024-04-08 11:43 | PTOPEVAL1 ---
Assessment and note entered by Oj Bhatt Evaluation Information Assessment Status Evaluation ICD-10 Condition Codes (PT) M54.16 Onset 03/29/24 Subjective Information Pt. reports that she has had back problems for years. She states that she is scheduled to have back surgery in May. She states that she has had previous back surgery, but states that her leg weakness, pain and balance have all began to worsen. She states that she can not stand longer than a couple minutes currently. She describes her pain going across her back and down both legs. She states that her feet feel numb and uncoordinated. She states that she is driving, but has began to do fiber picker with her groceries, because she cannot stand long enough. She states that she is currently using a walker in the community. She reports that her pain is relieved with sitting. She reports that laying flat causes a constant ache in her low back. She is taking Lyrica daily. She states that her goal would be to be able to walk with a cane over a walker in the community. Reported Pain Level Pain Score 7: Self Report Assessment PT Clinical Summary Pt. is a 73 year old female who enters the clinic due to lumbar radiculopathy, affecting both the left and right l.e.'s. She presents with functional decline, bilateral l.e. weakness, impaired gait, impaired balance and pain on this date. Continued skilled PT is indicated in order to improve these areas to allow for improved comfort with IADL performance. Plan of Care Interventions Electrical Stimulation,Hot Pack/Cold Pack,Manual Therapy,Neuro Re-education,Patient/Caregiver Educati,Therapeutic Activities,Therapeutic Exercise PT Services Indicated Yes Treatment Frequency and 2x/week x 10 visits Duration These treatments will address the objective and functional deficits as defined above. The patient will be advanced safely and appropriately in order for the patient to progress towards his/her prior level of function. Additional exercises will be introduced and as well as a comprehensive home exercise program upon discharge, if needed, ?to ensure carryover of functional gains achieved in the clinic. This treatment plan has been reviewed and agreement upon by the patient.
--- NOTE | 2024-04-08 11:44 | OPREHPOC ---
Outpatient Therapy Plan of Care This is a Multidisciplinary Plan of Care that may contain components documented by all disciplines (PT, OT, and ST.) PT Problem 1 PT Problem #1 Knowledge Deficit PT Goal 1 Goal / Goal Update Independent with a HEP addressing strength and endurance Target Visit 2 PT Problem 2 PT Problem #2 Impaired Balance PT Goal 1 Goal / Goal Update Pt. will improve her tinetti score to 19 or greater indicating improved safety Target Visit 10 PT Problem 3 PT Problem #3 Impaired Gait PT Goal 1 Goal / Goal Update Pt. will demonstrate improved gait efficiency ambulating a distance of 600' in 6 minutes with use of least restrictive AD Pt. will report developing regular walking regimen and being able to ambulate for duration of 15 minutes without rest. Target Visit 10 PT Problem 4 PT Problem #4 Impaired Strength PT Goal 1 Goal / Goal Update Pt. will demonstrate 4/5 gross left l.e. strength Target Visit 10
--- NOTE | 2024-04-30 15:55 | PTOPREEVAL ---
Assessment and note entered by Margoth Reece DPT Evaluation Information Assessment Status Re-evaluation Diagnosis low back pain ICD-10 Condition Codes (PT) Radiculopathy, lumbar region M54.16 Onset 03/29/24 Subjective Information patient reports she was hospitalized for 5 days with kidney and blood infection. she reports she feels she has lost a lot of strength but reports that he back is feeling a little bit better. she states it is still present but that the kidneys seemed to have been causing some of the pain. She reports she has not taken a pain pill since . Reported Pain Level Pain Score 2: Self Report Assessment PT Clinical Summary Ms. Gale has been seen for 4 visits of skilled PT . She presents today following a 5 day hospital stay due to kidney and blood injection. She continues to present with low back pain, B LE weakness and poor balance. She would benefit from continued skilled PT to address remaining impairments to return to PLOF. Plan of Care Interventions Electrical Stimulation,Hot Pack/Cold Pack,Manual Therapy,Neuro Re-education,Patient/Caregiver Education,Therapeutic Activities,Therapeutic Exercise PT Services Indicated Yes Treatment Frequency and continue with current POC Duration These treatments will address the objective and functional deficits as defined above. The patient will be advanced safely and appropriately in order for the patient to progress towards his/her prior level of function. Additional exercises will be introduced and as well as a comprehensive home exercise program upon discharge, if needed, ?to ensure carryover of functional gains achieved in the clinic. This treatment plan has been reviewed and agreement upon by the patient.
--- NOTE | 2024-05-10 13:59 | PCPTNOTE ---
Cancelled session. Pt reports she forgot about therapy and is not home.
--- NOTE | 2024-05-28 08:06 | OPREHPOC ---
Outpatient Therapy Plan of Care This is a Multidisciplinary Plan of Care that may contain components documented by all disciplines (PT, OT, and ST.) PT Problem 1 PT Problem #1 Knowledge Deficit PT Goal 1 Goal / Goal Update Independent with a HEP addressing strength and endurance Target Visit 2 Progress Met PT Problem 2 PT Problem #2 Impaired Balance PT Goal 1 Goal / Goal Update Pt. will improve her tinetti score to 19 or greater indicating improved safety Target Visit 10 Progress Not Met PT Goal 2 Goal / Goal Update continue PT Problem 3 PT Problem #3 Impaired Gait PT Goal 1 Goal / Goal Update Pt. will demonstrate improved gait efficiency ambulating a distance of 600' in 6 minutes with use of least restrictive AD Pt. will report developing regular walking regimen and being able to ambulate for duration of 15 minutes without rest. Target Visit 10 Progress Not Met PT Goal 2 Goal / Goal Update continue PT Problem 4 PT Problem #4 Impaired Strength PT Goal 1 Goal / Goal Update Pt. will demonstrate 4/5 gross left l.e. strength Target Visit 10 Progress Not Met PT Goal 2 Goal / Goal Update continue
--- NOTE | 2024-05-28 08:06 | PTOPDC ---
Assessment and note entered by JT File, PT Evaluation Information Assessment Status Discharge Diagnosis low back pain ICD-10 Condition Codes (PT) Radiculopathy, lumbar region M54.16 Onset 03/29/24 Subjective Information patient reports she has shooting R leg pain today, and was forced to take a tramadol for the first time in 10 days. she is scheduled to have surgery on 06/11/24, and expects to be sent back here after surgery. Assessment PT Clinical Summary mrs. maza presents to skilled PT for her 10th skilled PT visit. she has continued pain in the lower back and down the R LE that is shooting today. she is scheduled to have surgery in a few weeks. she will be DC'd from skilled PT today due to a lack of achievement of goals. she will continue with HEP independent at home until ready to return to PT post op. Plan of Care PT Services Indicated Yes
--- NOTE | 2024-05-28 08:07 | PTOPDC ---
Assessment and note entered by JT File, PT Evaluation Information Assessment Status Discharge Diagnosis low back pain ICD-10 Condition Codes (PT) Radiculopathy, lumbar region M54.16 Onset 03/29/24 Subjective Information patient reports she has shooting R leg pain today, and was forced to take a tramadol for the first time in 10 days. she is scheduled to have surgery on 06/11/24, and expects to be sent back here after surgery. Assessment PT Clinical Summary mrs. maza presents to skilled PT for her 9th skilled PT visit. she has continued pain in the lower back and down the R LE that is shooting today. she is scheduled to have surgery in a few weeks. she will be DC'd from skilled PT today due to a lack of achievement of goals. she will continue with HEP independent at home until ready to return to PT post op. Plan of Care PT Services Indicated Yes
== END 2024-05-24 15:00 | disposition home or self-care (01) ==
LOC: CHSPT 10:43
PROVIDERS: Visit Provider Internal Medicine
DX: M54.16 Radiculopathy, lumbar region (principal)
CPT/HCPCS: 97014; 97110; 97161; G0283

== ENCOUNTER 2024-04-19 13:29 | Observation (INO) | payer MEDICARE, SELFPAY ==
--- NOTE | ~2024-04-19 | XR_ITS ---
XR chest 2V Ordering provider: Boris Guerrero MD History: 73 years Female with . cp . Comparison: April 26, 2021 FINDINGS: MEDIASTINUM: The cardiac silhouette is not enlarged. Slightly congestive jonathon. LUNGS: No infiltrates, effusions or pneumothorax. Atelectatic area seen in the left costophrenic angl e. OTHER: No free air under the diaphragm. Degenerative changes of the spine. IMPRESSION: Focal atelectatic changes in the left costophrenic angle otherwise, No acute cardiopulmonary pathology. Reviewed, dictated and finalized at location A. 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
--- NOTE | ~2024-04-19 | US_ITS ---
Limited Abdominal Sonogram: Real-time sonographic imaging of the right upper quadrant was performed. Clinical History: Abnormal liver enzymes Findings: The liver appears mildly echogenic, with no evidence of mass lesion or bile duct dilatatio n. Main portal vein demonstrates normal direction of flow. The gallbladder is well distended, and dem onstrates small echogenic gallstones. No gallbladder wall thickening. The common bile duct measures 6 mm. The visualized pancreas, aorta, and IVC are unremarkable. Impression: Diffuse fatty infiltration of liver. Cholelithiasis. Reviewed, dictated and finalized at location M. RATORY ASSOCIATE Impression: Diffuse fatty infiltration of liver. Cholelithiasis.
--- NOTE | ~2024-04-19 | CT_ITS ---
EXAMINATION: CTA chest DATE: 04/19/2024 16:50 INDICATION: Fevers, chills, shortness of breath and chest pain. TECHNIQUE: Computed tomographic angiography (CTA) of the chest was performed 100 mL Omnipaque-350 int ravenous contrast. Volume-rendered 3D-reconstructions of the aorta and large arteries were constructe d by the technologist on a separate workstation. Automated exposure control and iterative reconstruct ion technique were employed. The dose-length product was 469.07 mGy-cm. COMPARISON: None. FINDINGS: There are scattered linear discoid atelectasis in both lungs most prominent at the basilar aspect of the bilateral lower lobes. There are some scattered groundglass opacities in the lungs without associ ated septal line thickening would favor additional atelectasis over pulmonary edema or pneumonia. No pleural effusion or pneumothorax. Although not performed as a dedicated pulmonary embolism protocol t here is excellent contrast opacification of the pulmonary arteries demonstrating no pulmonary embolus some. Heart size normal. No pericardial effusion. Thoracic aorta normal caliber with no dissection. Small amount of atherosclerotic plaque along the thoracic aorta without hemodynamically significant s tenosis. No pathologically enlarged thoracic lymphadenopathy. There is enhancing urothelial thickenin g at the left renal pelvis which suggests possible ascending urinary tract infection. There is diffus e slightly decreased cortical enhancement in the left kidney relative to the right with small region of more prominent decreased cortical enhancement at the anterior lower pole which raises concern for pyelonephritis. Mild thoracic and moderate to severe upper lumbar spondylosis. IMPRESSION: 1. Urothelial thickening at the left kidney with asymmetric minimal to mild decreased cortical enhanc ement suspicious for ascending urinary tract infection and early pyelonephritis. 2. Scattered mild groundglass opacities in the lungs and favor atelectasis over mild pulmonary edema or pneumonia. Number 3. Thoracic aorta normal in caliber with or no stenosis or dissection. Reviewed, dictated and finalized at location A. Y MACHINERY OPERATOR IMPRESSION: 1. Urothelial thickening at the left kidney with asymmetric minimal to mild dec reased cortical enhancement suspicious for ascending urinary tract infection an d early pyelonephritis. 2. Scattered mild groundglass opacities in the lungs and favor atelectasis over mild pulmonary edema or pneumonia. Number 3. Thoracic aorta normal in caliber with or no stenosis or dissection.
[2024-04-19 13:37] VITALS: BP 126/95; PULSE 90; RESP 20; TEMP 37; O2SAT 95
--- NOTE | 2024-04-19 13:54 | ED.WEAKNESS ---
HPI - Weakness General Chief complaint: Weakness Stated complaint: COLD, CHILLS, SHAKY Source: patient and family Mode of arrival: ambulatory Limitations: no limitations History of Present Illness HPI Narrative: Patient is a 73-year-old female with chills and shivers and tremors this morning with a questionable fever. She also has chest pain from the front all the way to the back. She has chronic back pain and upcoming surgery. She has generalized weakness today. She did not present with chest pain and told me after I got in the room. She had a UTI a week ago and was given Cipro. Complaint: generalized weakness Onset (ago): day(s) (1) Duration: constant Location: generalized Migration: none Severity: mild Severity scale (1-10): 2 Quality: sharp Relieving factors: none Exacerbating factors: none Context: other ( Multiple new symptoms and complaints today) Associated symptoms: chest pain, dysuria ( recent UTI treated and she was supposed to go back for repeat UA; she did not go) and fever/chills Related Data Home Medications Medication Instructions Recorded Confirmed ramipril 5 mg capsule 5 mg PO DAILY 12/16/19 04/19/24 levothyroxine 112 mcg capsule 112 mcg PO DAILY 11/10/23 04/19/24 tramadol 50 mg tablet 50 mg PO Q6-8H PRN Pain 11/10/23 04/19/24 trazodone 100 mg tablet 100 mg PO QHS 11/10/23 04/19/24 acetaminophen 650 mg 650 mg PO Q12H 11/20/23 04/19/24 tablet,extended release (Tylenol Arthritis Pain) meclizine 12.5 mg tablet 12.5 mg PO TID PRN Dizziness 11/20/23 04/19/24 mecobalamin (vitamin B12) 2,500 4,000 mcg PO 11/20/23 11/20/23 mcg chewable tablet fluoxetine 20 mg capsule 20 mg PO DAILY 04/19/24 04/19/24 pregabalin 150 mg capsule 150 mg PO BID 04/19/24 04/19/24 Allergies Allergy/AdvReac Type Severity Reaction Status Date / Time pneumococcal vaccine Allergy Mild Swelling Verified 04/19/24 13:59 Review of Systems Review of Systems: All systems reviewed & are unremarkable except as noted in HPI and below Constitutional: Constitutional: Reports no additional constitutional complaints Eyes: Eyes: Reports no additional eye complaints ENT: Reports system reviewed and no additional complaints, except as documented Cardiovascular: Cardiovascular: Reports no additional cardiovascular complaints Respiratory: Respiratory: Reports no additional respiratory complaints Gastrointestinal: Gastrointestinal: Reports no additional gastrointestinal complaints Genitourinary: Genitourinary: Reports no additional female genitourinary complaints Musculoskeletal: Musculoskeletal: Reports no additional musculoskeletal complaints Integumentary/Breasts: Skin/Breast: Reports system reviewed and no additional complaints, except as docu Neurologic: Reports system reviewed and no additional complaints, except as documented Psychiatric: Psychiatric: Reports no additional psychiatric complaints Endocrine: Endocrine: Reports no additional endocrine complaints Hematologic/Lymphatic: Hematologic/Lymphatic: Reports no additional hematologic/lymphatic complaints Allergic/Immunologic: Allergic/Immunologic: Reports no additional allergic/immunologic complaints [facility] Past Medical History Medical History (Updated 04/19/24 @ 17:43 by Boris Guerrero MD) Depression Hypertension Hypothyroidism Macular degeneration Surgical History Surgical History H/O: hysterectomy History of appendectomy Family History Family History Father Carotid stenosis CHF (congestive heart failure) CAD (coronary artery disease) Social History Social History Smoking status: Former smoker Tobacco type: cigarettes Substance use: never Living arrangements: with family 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 Gender identity (if verbalized by the patient): Female Exam Const: General: healthy appearing Nutritional Appearance: well nourished Orientation/consciousness: patient oriented x3 HENMT: Head: normal to inspection Ears: external ears normal Face/Nose/Sinus: Normal external nose present Eyes: Conjunctivae: conjunctivae normal Pupils: Equal, round and reactive pupils present EOM: EOMs intact bilaterally Neck: Neck: normal visual inspection Chest: Chest palpation & inspection: normal inspection of the chest Resp: Effort & Inspection: normal respiratory effort and not labored Auscultation: clear to auscultation bilaterally and no crackles Cardio: Rate: regular rate Rhythm: regular rhythm Heart sounds: no murmurs GI: Inspection: non-distended GI Palp: Yes Soft to palpation and No Tenderness to palpation present (GI) Auscultation: normal bowel sounds : General: Yes bladder normal to palpation Back/Spine/Pelvis: Back: no CVA tenderness Skin: General skin exam: normal color Rashes: no rashes Wounds: no wounds Neuro: General: patient oriented x3 Cranial nerves: Yes Nystagmus not present Speech: normal speech Extrem: General: normal to inspection Psych: Mental Status: mental status grossly normal Affect: normal affect Attitude: cooperative Course Vital Signs Vital signs: Vital Signs Temperature 37.0 C 04/19/24 13:37 Pulse Rate 90 04/19/24 13:37 Respiratory Rate 20 04/19/24 13:37 Blood Pressure 126/95 H 04/19/24 13:37 Pulse Oximetry 95 04/19/24 13:37 Oxygen Delivery Room Air 04/19/24 13:37 Temperature 39.5 C H 04/19/24 15:01 Pulse Rate 90 04/19/24 13:37 Respiratory Rate 20 04/19/24 13:37 Blood Pressure 126/95 H 04/19/24 13:37 Pulse Oximetry 95 04/19/24 13:37 Oxygen Delivery Room Air 04/19/24 13:37 MDM - Weakness MDM Narrative Medical decision making narrative: patient is a 73-year-old female with some chest pain and other multiple complaints. We will monitor the chest pain workup at this time and look for septic causes as well too. CTA of the chest showed a pyelonephritis on the left which explains her UTI that has gone bad on oral Cipro even as an outpatient so we will admit her at this time for IV antibiotics. Lab Data Attestation: I reviewed the patient's lab results. 04/19/24 14:51 04/19/24 14:51 Labs: Lab Results 04/19/24 04/19/24 Range/Units 14:51 15:02 WBC 8.0 (4.8-10.8) K/mm3 RBC 3.50 L (4.20-5.40) M/mm3 Hgb 11.2 L (11.7-13.8) g/dL Hct 32.3 L (35.0-42.0) % MCV 92.3 (78.0-102.0) fL MCH 32.0 H (27.0-31.0) pg MCHC 34.7 (32-36) g/dL RDW 13.5 (11.6-14.4) % Plt Count 181 (150-420) K/mm3 MPV 9.4 (9.2-11.8) fl Immature Gran % (Auto) 0.5 H (0.0-0.0) % Neut % (Auto) 90.0 H (50.0-70.0) % Lymph % (Auto) 5.2 L (18.0-42.0) % Mck[place] % (Auto) 3.6 (2.0-11.0) % Eos % (Auto) 0.3 L (1.0-6.0) % Baso % (Auto) 0.4 (0.0-1.0) % Lymph # (Auto) 0.41 L (1.10-4.50) K/mm3 [place]ck[place] # (Auto) 0.29 (0.10-0.90) K/mm3 Eos # (Auto) 0.02 (0.02-0.50) K/mm3 Baso # (Auto) 0.03 (0.00-0.10) K/mm3 Abs Immat Gran (auto) 0.04 H (0.00-0.00) K/mm3 Absolute Neuts (auto) 7.16 (1.70-7.20) K/mm3 Absolute Nucleated RBC 0.00 (0.00-0.00) K/mm3 Nucleated RBC % 0.0 (0-0.0) % PT 10.8 (9.50-12.1) Seconds INR 1.0 APTT 28.8 (23.9-30.70) Sec Sodium 133 L (136-145) mmol/L Potassium 3.9 (3.5-5.1) mmol/L Chloride 95 L (98-108) mmol/L Carbon Dioxide 29 (21-32) mmol/L Anion Gap 9 (4-12) mmol/L BUN 7 (7-18) mg/dL Creatinine 0.72 (0.55-1.02) mg/dL Estim Creat Clear Calc 67 ml/min Estimated GFR > 60 (59 - ) Glucose 108 H (70-99) mg/dL Calculated Osmolality 275 L (285-295) mOsm/kg Lactic Acid 1.2 (0.4-2.0) mmol/L Calcium 9.3 (8.5-10.1) mg/dL Total Bilirubin 0.9 (0.00-1.00) mg/dL AST 227 H (15-37) U/L ALT 148 H (14-59) U/L Alkaline Phosphatase 140 H (46-116) U/L Troponin I 5.0 (0.00-60.4) ng/L NT-Pro-B Natriuret Pep 1303 H (0-125) pg/mL Total Protein 6.7 (6.4-8.2) g/dL Albumin 3.6 (3.4-5.0) g/dL Urine Color Light yellow (Yellow) Urine Appearance Clear (Clear) Urine pH 6.0 (5.0-8.0) Ur Specific [place] 1.010 (1.010-1.020) Urine Protein Negative (Negative) Urine Glucose (UA) Negative (Negative) Urine Ketones 1+ H (Negative) Ur Blood (Man) 1+ H (Negative) Urine Nitrate Positive H (Negative) Urine Bilirubin Negative (Negative) Urine Urobilinogen 0.2 (0.2-1.0) mg/dL Leukocyte Esterase Rfl 1+ H (Negative) TACHO/UL Urine RBC 3-5 H (0-2) /hpf Urine WBC 10-15 H (0-3) /hpf Ur Squamous Epith Cells Few (Few) /hpf Urine Bacteria 4+ H (None) /hpf Influenza A (RT-PCR) Negative (Negative) Influenza B (RT-PCR) Negative (Negative) RSV (RT-PCR) Negative (Negative) SARS-CoV-2 RNA (RT-PCR) Negative (Negative) Imaging Data Attestation: I personally reviewed and interpreted this imaging study as follows: Radiologist's impression: chest x-rays negative for acute process CTA of the chest shows IMPRESSION: 1. Urothelial thickening at the left kidney with asymmetric minimal to mild decreased cortical enhancement suspicious for ascending urinary tract infection and early pyelonephritis. 2. Scattered mild groundglass opacities in the lungs and favor atelectasis over mild pulmonary edema or pneumonia. Number 3. Thoracic aorta normal in caliber with or no stenosis or dissection. ECG Data EKG #1: Attestation: I personally reviewed and interpreted this ECG as follows: ECG completion date: 04/19/24 ECG completion time: 14:56 EKG Interpretation: tachycardia, no ectopy, non-specific ST changes, widened QRS, RBBB, normal QT and left axis Discharge Plan Discharge Clinical Impression: Acute pyelonephritis Patient Disposition: Acute Care [facility] Condition: Stable Prescriptions: No Action ramipril 5 mg capsule 5 mg PO DAILY fluoxetine 20 mg capsule 20 mg PO DAILY pregabalin 150 mg capsule 150 mg PO BID meclizine 12.5 mg tablet 12.5 mg PO TID PRN (Reason: Dizziness) mecobalamin (vitamin B12) 2,500 mcg tablet,chewable 4,000 mcg PO acetaminophen [Tylenol Arthritis Pain] 650 mg tablet extended release 650 mg PO Q12H levothyroxine 112 mcg capsule 112 mcg PO DAILY trazodone 100 mg tablet 100 mg PO QHS tramadol 50 mg tablet 50 mg PO Q6-8H PRN (Reason: Pain) Follow-up/Referrals: UNKNOWN,DOCTOR [Primary Care Provider] - Time of Disposition: 17:42
--- NOTE | 2024-04-19 14:26 | ECG_ITS ---
Test Date: 2024-04-19 14:51:36 Measurements Intervals Tolar Rate: 113 P: 53 VA: 195 QRS: -26 QRSD: 122 T: 60 QT: 309 QTc: 424 Interpretive Statements SINUS TACHYCARDIA RIGHT BUNDLE BRANCH BLOCK BASELINE ARTIFACT- I, III, AVR, AVL, AVF ABNORMAL ECG No previous ECG available for comparison Electronically Signed On 04-19-2024 19:30:20 [employer]VIS[employer] by Chase Leahy D.O.
[2024-04-19 14:58] LABS: Add Urine Microscopic? YES; Appearance Urine Clear (Clear); Basophils Absolute Auto 0.03 K/mm3 (0.00-0.10); Basophils Percent Auto 0.4 % (0.0-1.0); Bilirubin Urine Negative (Negative); Blood Urine 1+ (Negative); Color Urine Light Yellow (Yellow); Eosinophils Absolute Auto 0.02 K/mm3 (0.02-0.50); Eosinophils Percent Auto 0.3 % (1.0-6.0); Glucose Urine UA Negative (Negative); Hematocrit 32.3 % (35.0-42.0); Hemoglobin 11.2 g/dL (11.7-13.8); Immature Granulocyte Absolute 0.04 K/mm3 (0.00-0.00); Immature Granulocyte Percent A 0.5 % (0.0-0.0); Ketones Urine 1+ (Negative); Leukocyte Esterase Ur 1+ LEU/UL (Negative); Lymphocytes Absolute Auto 0.41 K/mm3 (1.10-4.50); Lymphocytes Percent Auto 5.2 % (18.0-42.0); Mean Corpuscular HGB Conc 34.7 g/dL (32-36); Mean Corpuscular Volume 92.3 fL (78.0-102.0); Mean Platelet Volume 9.4 fl (9.2-11.8); Monocytes Absolute Auto 0.29 K/mm3 (0.10-0.90); Monocytes Percent Auto 3.6 % (2.0-11.0); Neutrophils Absolute Auto 7.16 K/mm3 (1.70-7.20); Nitrate Urine Positive (Negative); Platelet Count Result 181 K/mm3 (150-420); Protein Urine Negative (Negative); Red Cell Distribution Width 13.5 % (11.6-14.4); Urobilinogen Urine 0.2 mg/dL (0.2-1.0)
[2024-04-19 15:01] VITALS: TEMP 39.5
[2024-04-19 15:10] LABS: Bacteria Urine 4+ /hpf; Squamous Epithelial Cell Urine Few /hpf (Few)
[2024-04-19] MEDS: ACETAMINOPHEN 500 MG TABLET 1000 MG PO (15:14)
[2024-04-19 15:21] LABS: Alanine Aminotransferase 148 U/L (14-59); Albumin Level 3.6 g/dL (3.4-5.0); Alkaline Phosphatase 140 U/L (46-116); Anion Gap 9 mmol/L (4-12); Aspartate Amino Transferase 227 U/L (15-37); Bilirubin,Total 0.9 mg/dL (0.00-1.00); Blood Urea Nitrogen 7 mg/dL (7-18); Calcium 9.3 mg/dL (8.5-10.1); Carbon Dioxide 29 mmol/L (21-32); Chloride 95 mmol/L (98-108); Estimated CRCL calculation 67 ml/min; Estimated Glomerular Filt Rate > 60; Glucose 108 mg/dL (70-99); Lactic Acid Reflex 1.2 mmol/L (0.4-2.0); NT Pro B Type Natriuretic Pept 1303 pg/mL (0-125); Osmolality Calculated 275 mOsm/kg (285-295); Partial Thromboplastin Time 28.8 Sec (23.9-30.70); Potassium 3.9 mmol/L (3.5-5.1); Prothrombin Time 10.8 Seconds (9.50-12.1); Sodium 133 mmol/L (136-145); Total Protein 6.7 g/dL (6.4-8.2)
[2024-04-19 15:40] LABS: SARS-CoV-2 RNA PCR Negative (Negative)
[2024-04-19 15:41] LABS: Influenza A QL RT-PCR Negative (Negative); Influenza B QL RT-PCR Negative (Negative); RSV RNA, RT-PCR Negative (Negative)
[2024-04-19] MEDS: PIPERACILLN/TAZ 3.375GM/NS50ML 3.375 GM/50 ML BAG IVPB (18:15)
[2024-04-19 18:35] VITALS: BMI 36.0
[2024-04-19] MEDS: HYDROcodone/acetaminophen (*CRX) 5-325 MG TABLET 1 TAB PO (19:22)
[2024-04-19] MEDS: PREGABALIN (*CRX) 50 MG CAPSULE 150 MG PO (19:22)
[2024-04-19] MEDS: ONDANSETRON INJ 4 MG/2 ML VIAL IV PUSH (19:22)
--- NOTE | 2024-04-19 19:35 | ADMGEN ---
This patient, Avis Gale, was admitted to 2nd Floor Room 202-1. Patient/family oriented to hospital policies and general routines including ID bracelet, bed and alarms, visiting hours, pain management, procedures, bathroom and other care routines, personal items, smoking policy, room service/diet, and visiting hours. Information on how to activate the Rapid Response Team has been discussed. Patient/Family are encouraged to report perceived risks to care and to ask questions if they do not understand what they are told or what they should do.
[2024-04-19 20:00] VITALS: PULSE 102
[2024-04-19 20:17] LABS: Troponin I 5.3 ng/L (0.00-60.4)
[2024-04-19] MEDS: SODIUM CHLORIDE 0.9% IV 1,000 ML 100 ML IV CONT (21:38)
[2024-04-19] MEDS: traZODone HCL 50 MG TABLET 100 MG PO (21:50)
[2024-04-20] VITALS (7 sets, daily range): BP systolic 102–118; BP diastolic 52–62; PULSE 72–95; RESP 14–19; TEMP 36.6–37.9; O2SAT 93–97
[2024-04-20] MEDS: PIPERACILLN/TAZ 3.375GM/NS50ML 3.375 GM/50 ML BAG IVPB ×2 (00:52→06:51)
[2024-04-20 05:17] LABS: Basophils Absolute Auto 0.04 K/mm3 (0.00-0.10); Basophils Percent Auto 0.3 % (0.0-1.0); Eosinophils Absolute Auto 0.13 K/mm3 (0.02-0.50); Eosinophils Percent Auto 0.8 % (1.0-6.0); Hematocrit 27.3 % (35.0-42.0); Hemoglobin 9.2 g/dL (11.7-13.8); Immature Granulocyte Absolute 0.22 K/mm3 (0.00-0.00); Immature Granulocyte Percent A 1.4 % (0.0-0.0); Lymphocytes Absolute Auto 1.15 K/mm3 (1.10-4.50); Lymphocytes Percent Auto 7.5 % (18.0-42.0); Mean Corpuscular HGB Conc 33.7 g/dL (32-36); Mean Corpuscular Hemoglobin 31.4 pg (27.0-31.0); Mean Corpuscular Volume 93.2 fL (78.0-102.0); Mean Platelet Volume 9.4 fl (9.2-11.8); Monocytes Absolute Auto 0.89 K/mm3 (0.10-0.90); Monocytes Percent Auto 5.8 % (2.0-11.0); Neutrophils Absolute Auto 12.93 K/mm3 (1.70-7.20); Neutrophils Percent Auto 84.2 % (50.0-70.0); Platelet Count Result 149 K/mm3 (150-420); Red Blood Count 2.93 M/mm3 (4.20-5.40); White Blood Count 15.4 K/mm3 (4.8-10.8)
[2024-04-20 05:39] LABS: Alanine Aminotransferase 202 U/L (14-59); Albumin Level 2.7 g/dL (3.4-5.0); Alkaline Phosphatase 156 U/L (46-116); Anion Gap 10 mmol/L (4-12); Aspartate Amino Transferase 229 U/L (15-37); Bilirubin,Total 0.8 mg/dL (0.00-1.00); Blood Urea Nitrogen 11 mg/dL (7-18); Carbon Dioxide 27 mmol/L (21-32); Chloride 97 mmol/L (98-108); Estimated CRCL calculation 43 ml/min; Estimated Glomerular Filt Rate 43; Glucose 111 mg/dL (70-99); Lactic Acid Reflex 0.8 mmol/L (0.4-2.0); Osmolality Calculated 278 mOsm/kg (285-295); Potassium 3.4 mmol/L (3.5-5.1); Sodium 134 mmol/L (136-145); Total Protein 5.1 g/dL (6.4-8.2)
[2024-04-20] MEDS: LEVOTHYROXINE SODIUM 112 MCG TABLET PO (06:51)
[2024-04-20] MEDS: HYDROcodone/acetaminophen (*CRX) 5-325 MG TABLET 1 TAB PO (06:51)
--- NOTE | 2024-04-20 08:17 | P.HP_ITS ---
H&P: HPI History of Present Illness Date/Time: 04/20/24 08:17 Chief Complaint: fever Narrative: This is a 89 year old female with a significant past medical history of depression, hypertension, hypothyroidism, macular degeneration, degenerative disc disease, insomnia, hyperlipidemia, fibromyalgia, VIC, GERD, former smoker who presented to the hospital with fever, chills, weakness that started yesterday morning. patient states that she started to have back pain a couple weeks ago however has chronic back pain due to herniated disc and was unable to determine if it was more her back acting up or if it was kidney. She said on she noticed that her bladder was having spasms are cramping when urinating and thought that she was having symptoms of a UTI at that point. She woke up on Monday with fever and chills and worsening back pain which was higher up than her normal pain. She decided to come in for further evaluation. Work up in the hospital included a chest x-ray which shown focal atelectatic changes, no acute cardiopulmonary pathology. Chest CTA shown Urothelial thickening at the left kidney with asymmetric minimal to mild decreased cortical enhancement suspicious for ascending urinary tract infection and early pyelonephritis, scattered ground glass opacities in the lungs and favor atelectasis, thoracic aorta without dissection or stenosis, no evidence of PE. Initial labs revealed a white blood cell count of 8.0, hemoglobin 11.2, sodium 133, chloride 95, AST 227, ALT 148, alkaline phosphate 140, proBNP 13 0 3, troponin negative x2. UA was obtained which showed 1+ urine ketone, 1+ urine blood, positive nitrate, 1+ leukocyte, 3-5 urine RBC, 10-15 urine WBC, 4+ bacteria. Respiratory panel was negative for influenza a and B, RSV, COVID. Blood and urine cultures were obt ained and are pending. Patient was started on Zosyn in the ED and given Tylenol and started on IV fluids. She was then transition to Rocephin 2 g daily. Review of Systems Review of Systems: All systems reviewed & are unremarkable except as noted in HPI and below Constitutional: Constitutional: Reports as per HPI and Reports no additional constitutional complaints Eyes: Eyes: Reports as per HPI and Reports no additional eye complaints ENT: Reports system reviewed and no additional complaints, except as documented and Reports as per HPI Cardiovascular: Cardiovascular: Reports as per HPI and Reports no additional cardiovascular complaints Respiratory: Respiratory: Reports as per HPI and Reports no additional respiratory complaints Gastrointestinal: Gastrointestinal: Reports as per HPI and Reports no additional gastrointestinal complaints Genitourinary: Genitourinary: Reports no additional female genitourinary complaints and Reports as per HPI Musculoskeletal: Musculoskeletal: Reports no additional musculoskeletal complaints and Reports as per HPI Integumentary/Breasts: Skin/Breast: Reports system reviewed and no additional complaints, except as docu and Reports as per HPI Neurologic: Reports system reviewed and no additional complaints, except as documented and Reports as per HPI Psychiatric: Psychiatric: Reports no additional psychiatric complaints and Reports as per HPI [facility] Past Medical History Medical History (Updated 04/20/24 @ 16:57 by Lina Salomon APRN) Chronic back pain Degenerative disc disease Depression Fibromyalgia GERD with esophagitis Hypertension Hypothyroidism Macular degeneration Mixed hyperlipidemia Obstructive sleep apnea on CPAP Primary insomnia Surgical History Surgical History (Updated 04/20/24 @ 16:57 by Lina Salomon APRN) H/O: hysterectomy History of appendectomy History of back surgery Family History Family History Father Carotid stenosis CHF (congestive heart failure) CAD (coronary artery disease) Social History Social History Smoking status: Former smoker Tobacco type: cigarettes Alcohol intake: current Drinks per week: 3 Substance use: never Do You Feel Safe in your Home?: Yes Lack of Transportation: No Lack of Food: Never True Current Housing: I Have Housing Concerned About Future Housing: No Difficulty Paying Gas/Electric Bills: No Difficulty Paying for Meds: No Currently Unemployed: No Education: Associate Degree Difficulty w/ Childcare or Family Care: No Living arrangements: with family 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 Gender identity (if verbalized by the patient): Female Spiritual care concerns: No Meds Home Medications and Allergies Home Medications Medication Instructions Recorded Confirmed Type ramipril 5 mg capsule 5 mg PO DAILY 12/16/19 04/19/24 History levothyroxine 112 mcg capsule 112 mcg PO DAILY 11/10/23 04/19/24 History tramadol 50 mg tablet 50 mg PO Q6-8H PRN Pain 11/10/23 04/19/24 History trazodone 100 mg tablet 100 mg PO QHS 11/10/23 04/19/24 History acetaminophen 650 mg 650 mg PO Q12H 11/20/23 04/19/24 History tablet,extended release (Tylenol Arthritis Pain) meclizine 12.5 mg tablet 12.5 mg PO TID PRN Dizziness 11/20/23 04/19/24 History mecobalamin (vitamin B12) 2,500 4,000 mcg PO 11/20/23 11/20/23 History mcg chewable tablet fluoxetine 20 mg capsule 20 mg PO DAILY 04/19/24 04/19/24 History pregabalin 150 mg capsule 150 mg PO BID 04/19/24 04/19/24 History Allergies Allergy/AdvReac Type Severity Reaction Status Date / Time pneumococcal vaccine Allergy Mild Swelling Verified 04/19/24 13:59 Vital Signs Vital Signs - 24 hr 04/19/24 13:37 04/19/24 15:01 04/19/24 20:00 Temperature 98.6 F 103.1 F H Pulse Rate 90 102 H Respiratory Rate 20 Blood Pressure 126/95 H Pulse Oximetry 95 Oxygen Delivery Room Air 04/20/24 00:00 04/20/24 00:00 04/20/24 04:00 Temperature 100.2 F H Pulse Rate 95 93 92 Respiratory Rate 19 Blood Pressure 118/52 L Pulse Oximetry 94 Oxygen Delivery Room Air 04/20/24 04:00 Temperature 99 F Pulse Rate 88 Respiratory Rate 17 Blood Pressure 116/62 Pulse Oximetry 93 Oxygen Delivery Room Air Exam Narrative: General: In no acute distress, well nourished Head: atraumatic, no encephalopathy Eyes: PERRLA, sclera clear ENT: moist mucous membranes, nasal passages clear Neck: supple, no JVD, no adenopathy, trachea midline Cardiac: Normal S1 and S2. No murmur, gallops or friction rubs, peripheral pulses intact. Respiratory: Lungs clear to auscultation, no adventitious lung sounds, currently on room air Gastrointestinal: soft, non-distended, non-tender, normoactive bowel sounds. : voiding without difficulty. Extremities: moves all extremities well, no edema Skin: clean, dry, intact. No wounds or lesions. Neuro: Alert and oriented x4, cranial nerves intact, no neuro deficits. Psych: normal mood, normal affect, interactive H&P: Results Labs Labs: Short CBC 11/29/24 11/30/24 Range/Units 14:51 05:09 WBC 8.0 15.4 H (4.8-10.8) K/mm3 Hgb 11.2 L 9.2 L (11.7-13.8) g/dL Hct 32.3 L 27.3 L (35.0-42.0) % Plt Count 181 149 L (150-420) K/mm3 BMP 04/19/24 04/20/24 14:51 05:09 Sodium 133 L 134 L Potassium 3.9 3.4 L Chloride 95 L 97 L Carbon Dioxide 29 27 BUN 7 11 Creatinine 0.72 1.22 H Glucose 108 H 111 H Calcium 9.3 8.0 L Cardiac Enzymes 04/19/24 04/19/24 Range/Units 14:51 19:54 Troponin I 5.0 5.3 (0.00-60.4) ng/L Liver Function 04/19/24 04/20/24 Range/Units 14:51 05:09 Total Bilirubin 0.9 0.8 (0.00-1.00) mg/dL AST 227 H 229 H (15-37) U/L ALT 148 H 202 H (14-59) U/L Alkaline Phosphatase 140 H 156 H (46-116) U/L Albumin 3.6 2.7 L (3.4-5.0) g/dL Urine 04/19/24 Range/Units 14:51 Urine Color Light yellow (Yellow) Urine Appearance Clear (Clear) Urine pH 6.0 (5.0-8.0) Ur Specific [place] 1.010 (1.010-1.020) Urine Protein Negative (Negative) Urine Glucose (UA) Negative (Negative) Imaging Chest x-ray: Radiologist's impression: XR chest 2V Ordering provider: Boris Guerrero MD History: 73 years Female with . cp . Comparison: April 26, 2021 FINDINGS: MEDIASTINUM: The cardiac silhouette is not enlarged. Slightly congestive jonathon. LUNGS: No infiltrates, effusions or pneumothorax. Atelectatic area seen in the left costophrenic angle. OTHER: No free air under the diaphragm. Degenerative changes of the spine. IMPRESSION: Focal atelectatic changes in the left costophrenic angle otherwise, No acute cardiopulmonary pathology. Reviewed, dictated and finalized at location [facility] Chest CTA: Radiologist's impression: EXAMINATION: CTA chest DATE: 04/19/2024 16:50 INDICATION: Fevers, chills, shortness of breath and chest pain. TECHNIQUE: Computed tomographic angiography (CTA) of the chest was performed 100 mL Omnipaque-350 intravenous contrast. Volume-rendered 3D-reconstructions of the aorta and large arteries were constructed by the technologist on a separate workstation. Automated exposure control and iterative reconstruction technique were employed. The dose-length product was 469.07 mGy-cm. COMPARISON: None. FINDINGS: There are scattered linear discoid atelectasis in both lungs most prominent at the basilar aspect of the bilateral lower lobes. There are some scattered groundglass opacities in the lungs without associated septal line thickening would favor additional atelectasis over pulmonary edema or pneumonia. No pleural effusion or pneumothorax. Although not performed as a dedicated pulmonary embolism protocol there is excellent contrast opacification of the pulmonary arteries demonstrating no pulmonary embolus some. Heart size normal. No pericardial effusion. Thoracic aorta normal caliber with no dissection. Small amount of atherosclerotic plaque along the thoracic aorta without hemodynamically significant stenosis. No pathologically enlarged thoracic lymphadenopathy. There is enhancing urothelial thickening at the left renal pelvis which suggests possible ascending urinary tract infection. There is diffuse slightly decreased cortical enhancement in the left kidney relative to the right with small region of more prominent decreased cortical enhancement at the anterior lower pole which raises concern for pyelonephritis. Mild thoracic and moderate to severe upper lumbar spondylosis. IMPRESSION: 1. Urothelial thickening at the left kidney with asymmetric minimal to mild decreased cortical enhancement suspicious for ascending urinary tract infection and early pyelonephritis. 2. Scattered mild groundglass opacities in the lungs and favor atelectasis over mild pulmonary edema or pneumonia. Number 3. Thoracic aorta normal in caliber with or no stenosis or dissection. Reviewed, dictated and finalized at location [facility] Assessment and Plan Assessment and plan (1) Acute pyelonephritis: Code(s): N10 - Acute pyelonephritis Status: Acute Assessment and Plan: * UA showing 1+ urine ketone, 1+ urine blood, positive nitrate, 1+ leukocyte, 3- 5 urine RBC, 10-15 urine WBC, 4+ urine bacteria * Urine culture showing E coli on preliminary read * blood culture showing Gram-negative bacilli isolated in both sets of blood cultures on preliminary read. * Patient initially started on Zosyn and today transition to Rocephin 2 g Q 24h * Not meeting SIRS or sepsis criteria on admission * Initial white blood count 8.0 now up to 15.4 * T-max 103.1? now down to 99 (2) Elevated LFTs: Code(s): R79.89 - Other specified abnormal findings of blood chemistry Status: Acute Assessment and Plan: * Initial AST 227, ALT 148, alkaline phos 140 * On labs today AST 229, ALT 202, alkaline phos 156 * Will check hepatitis panel * Will also get ultrasound of liver * Patient currently on Lyrica. Ramipril, Trazodone, and Prozac which all of these medications can increase liver enzymes (3) Hypothyroidism: Code(s): E03.9 - Hypothyroidism, unspecified Status: Acute Assessment and Plan: * Continue Synthroid * Will check TSH (4) Hypertension: Code(s): I10 - Essential (primary) hypertension Status: Acute Assessment and Plan: * Blood pressure ranging 116/62 to 153/89 * Continue ramipril (5) Depression: Code(s): F32.9 - Major depressive disorder, single episode, unspecified Status: Acute Assessment and Plan: * Continue Prozac (6) Fibromyalgia: Code(s): M79.7 - Fibromyalgia Status: Acute Assessment and Plan: * Continue Lyrica (7) Primary insomnia: Code(s): F51.01 - Primary insomnia Status: Acute Assessment and Plan: * Continue trazodone (8) Obstructive sleep apnea on CPAP: Code(s): G47.33 - Obstructive sleep apnea (adult) (pediatric) Status: Acute Assessment and Plan: * patient stopped using CPAP at home for her VIC Quality VTE Prophylaxis VTE prophylaxis: pharmacologic ordered Hospitalist [facility] Advance Care Plan I have confirmed that the patient's Advanced Care Plan is present, code status is documented, or surrogate decision maker is listed in patient medical record.: Yes Medication Reconciliation I have utilized all available resources to obtain, update and review the patients current medications (includes all prescriptions, OTC, herbals, cannabis, and nutritional supplements).: Yes
[2024-04-20] MEDS: cefTRIAXone 2 GM/NS 100 ML 2 GM/100 ML BAG IVPB (09:00)
[2024-04-20 09:25] LABS: Thyroid Stimulating Hormone 1.63 uIU/mL (0.36-3.74)
[2024-04-20] MEDS: ENOXAPARIN 40 MG/0.4 ML SYRINGE SUB-Q (09:33)
[2024-04-20] MEDS: PREGABALIN (*CRX) 50 MG CAPSULE 150 MG PO ×2 (09:35→17:35)
[2024-04-20] MEDS: FLUoxetine HCL 20 MG CAPSULE PO (11:34)
[2024-04-20] MEDS: traMADol HCL (*CRX) 50 MG TABLET PO (15:30)
[2024-04-20] MEDS: ACETAMINOPHEN 325 MG TABLET 650 MG PO (17:35)
[2024-04-20] MEDS: traZODone HCL 50 MG TABLET 100 MG PO (21:55)
[2024-04-20] MEDS: SENNA/DOCUSATE SODIUM TABLET 1 TAB PO (21:55)
[2024-04-21] VITALS (8 sets, daily range): BP systolic 113–137; BP diastolic 63–73; PULSE 75–96; RESP 14–16; TEMP 36.2–36.9; O2SAT 93–95
[2024-04-21] MEDS: HYDROcodone/acetaminophen (*CRX) 7.5-325 MG TABLET 1 TAB PO ×3 (03:08→21:50)
[2024-04-21] MEDS: LEVOTHYROXINE SODIUM 112 MCG TABLET PO (05:49)
[2024-04-21 05:58] LABS: Basophils Absolute Auto 0.04 K/mm3 (0.00-0.10); Basophils Percent Auto 0.4 % (0.0-1.0); Eosinophils Absolute Auto 0.19 K/mm3 (0.02-0.50); Hematocrit 27.7 % (35.0-42.0); Hemoglobin 9.4 g/dL (11.7-13.8); Immature Granulocyte Absolute 0.06 K/mm3 (0.00-0.00); Immature Granulocyte Percent A 0.6 % (0.0-0.0); Immature Platelet Fraction Pct 3.7 % (1.0-7.0); Lymphocytes Absolute Auto 0.84 K/mm3 (1.10-4.50); Lymphocytes Percent Auto 8.8 % (18.0-42.0); Mean Corpuscular HGB Conc 33.9 g/dL (32-36); Mean Corpuscular Hemoglobin 31.5 pg (27.0-31.0); Mean Platelet Volume 9.8 fl (9.2-11.8); Monocytes Absolute Auto 0.71 K/mm3 (0.10-0.90); Monocytes Percent Auto 7.5 % (2.0-11.0); Neutrophils Absolute Auto 7.68 K/mm3 (1.70-7.20); Neutrophils Percent Auto 80.7 % (50.0-70.0); Platelet Count Result 134 K/mm3 (150-420); Red Blood Count 2.98 M/mm3 (4.20-5.40); Red Cell Distribution Width 13.8 % (11.6-14.4); White Blood Count 9.5 K/mm3 (4.8-10.8)
[2024-04-21 07:17] LABS: Alanine Aminotransferase 170 U/L (14-59); Albumin Level 2.6 g/dL (3.4-5.0); Alkaline Phosphatase 150 U/L (46-116); Anion Gap 4 mmol/L (4-12); Aspartate Amino Transferase 118 U/L (15-37); Bilirubin,Total 0.4 mg/dL (0.00-1.00); Blood Urea Nitrogen 13 mg/dL (7-18); Calcium 8.2 mg/dL (8.5-10.1); Carbon Dioxide 30 mmol/L (21-32); Chloride 95 mmol/L (98-108); Estimated CRCL calculation 60 ml/min; Estimated Glomerular Filt Rate > 60; Glucose 126 mg/dL (70-99); Osmolality Calculated 270 mOsm/kg (285-295); Sodium 129 mmol/L (136-145); Total Protein 5.7 g/dL (6.4-8.2)
[2024-04-21] MEDS: ENOXAPARIN 40 MG/0.4 ML SYRINGE SUB-Q (09:09)
[2024-04-21] MEDS: PREGABALIN (*CRX) 50 MG CAPSULE 150 MG PO (09:10)
[2024-04-21] MEDS: FLUoxetine HCL 20 MG CAPSULE PO (09:10)
[2024-04-21] MEDS: cefTRIAXone 2 GM/NS 100 ML 2 GM/100 ML BAG IVPB (09:11)
--- NOTE | 2024-04-21 10:57 | PM.IMPN ---
Progress Note: A&P Assessment and Plan (1) Acute pyelonephritis: Code(s): N10 - Acute pyelonephritis Status: Acute Assessment and Plan: UA showing 1+ urine ketone, 1+ urine blood, positive nitrate, 1+ leukocyte, 3-5 urine RBC, 10-15 urine WBC, 4+ urine bacteria Urine culture showing E coli on final read blood culture showing Gram-negative bacilli isolated in both sets of blood cultures on preliminary read. New set of blood cultures obtained today. Patient received to doses of Rocephin and now is switched to Bactrim for total of 7 days antibiotics Not meeting SIRS or sepsis criteria on admission Initial white blood count 8.0 White blood cell count today is 9.5 T-max 100.2 Ditropan ordered for bladder spasms (2) Elevated LFTs: Code(s): R79.89 - Other specified abnormal findings of blood chemistry Status: Acute Assessment and Plan: Initial AST 227, ALT 148, alkaline phos 140 Labs today show AST of 118, ALT 170, alk-phos 150--continues to trend downward Hepatitis panel pending Will also get ultrasound of liver Patient currently on Lyrica. Ramipril, Trazodone, and Prozac which all of these medications can increase liver enzymes (3) Hypothyroidism: Code(s): E03.9 - Hypothyroidism, unspecified Status: Acute Assessment and Plan: Continue Synthroid TSH 1.63 (4) Hypertension: Code(s): I10 - Essential (primary) hypertension Status: Acute Assessment and Plan: Blood pressure ranging 102/53 to 116/62 Continue ramipril (5) Depression: Code(s): F32.9 - Major depressive disorder, single episode, unspecified Status: Acute Assessment and Plan: Continue Prozac (6) Fibromyalgia: Code(s): M79.7 - Fibromyalgia Status: Acute Assessment and Plan: Lyrica decreased to 75 mg BID Increased weakness PT and OT ordered (7) Primary insomnia: Code(s): F51.01 - Primary insomnia Status: Acute Assessment and Plan: Continue trazodone (8) Obstructive sleep apnea on CPAP: Code(s): G47.33 - Obstructive sleep apnea (adult) (pediatric) Status: Acute Assessment and Plan: patient stopped using CPAP at home for her VIC Time Spent With Patient Time with patient: 25 - 35 minutes Subjective Date/time seen: 04/21/24 10:57 Interval history: Interval history: This is a 89 year old female with a significant past medical history of depression, hypertension, hypothyroidism, macular degeneration, degenerative disc disease, insomnia, hyperlipidemia, fibromyalgia, VIC, GERD, former smoker who presented to the hospital with fever, chills, weakness that started yesterday morning. patient states that she started to have back pain a couple weeks ago however has chronic back pain due to herniated disc and was unable to determine if it was more her back acting up or if it was kidney. She said on she noticed that her bladder was having spasms are cramping when urinating and thought that she was having symptoms of a UTI at that point. She woke up on Monday with fever and chills and worsening back pain which was higher up than her normal pain. She decided to come in for further evaluation. Work up in the hospital included a chest x-ray which shown focal atelectatic changes, no acute cardiopulmonary pathology. Chest CTA shown Urothelial thickening at the left kidney with asymmetric minimal to mild decreased cortical enhancement suspicious for ascending urinary tract infection and early pyelonephritis, scattered ground glass opacities in the lungs and favor atelectasis, thoracic aorta without dissection or stenosis, no evidence of PE. Initial labs revealed a white blood cell count of 8.0, hemoglobin 11.2, sodium 133, chloride 95, AST 227, ALT 148, alkaline phosphate 140, proBNP 13 0 3, troponin negative x2. UA was obtained which showed 1+ urine ketone, 1+ urine blood, positive nitrate, 1+ leukocyte, 3-5 urine RBC, 10-15 urine WBC, 4+ bacteria. Respiratory panel was negative for influenza a and B, RSV, COVID. Blood and urine cultures were obtained and are pending. Patient was started on Zosyn in the ED and given Tylenol and started on IV fluids. She was then transition to Rocephin 2 g daily. Subjective: Patient reports that she feels like she is in a fog ever since they increased the Lyrica for her chronic back pain. She also is reporting tremors and weakness due to her chronic pain. She is reporting bladder spasms as well. Labs and cultures reviewed. Review of Systems Review of Systems: All systems reviewed & are unremarkable except as noted in HPI and below Constitutional: Constitutional: Reports as per HPI and Reports no additional constitutional complaints Eyes: Eyes: Reports as per HPI and Reports no additional eye complaints ENT: Reports system reviewed and no additional complaints, except as documented and Reports as per HPI Cardiovascular: Cardiovascular: Reports as per HPI and Reports no additional cardiovascular complaints Respiratory: Respiratory: Reports as per HPI and Reports no additional respiratory complaints Gastrointestinal: Gastrointestinal: Reports as per HPI and Reports no additional gastrointestinal complaints Genitourinary: Genitourinary: Reports no additional female genitourinary complaints and Reports as per HPI Musculoskeletal: Musculoskeletal: Reports no additional musculoskeletal complaints and Reports as per HPI Integumentary/Breasts: Skin/Breast: Reports system reviewed and no additional complaints, except as docu and Reports as per HPI Neurologic: Reports system reviewed and no additional complaints, except as documented and Reports as per HPI Psychiatric: Psychiatric: Reports no additional psychiatric complaints and Reports as per HPI Exam Narrative: General: In no acute distress Cardiac: Normal S1 and S2. No murmur, gallops or friction rubs, peripheral pulses intact. Respiratory: Lungs clear to auscultation, no adventitious lung sounds, currently on room air Gastrointestinal: soft, non-distended, non-tender, normoactive bowel sounds. : voiding without difficulty. Neuro: Alert and oriented x4 Objective Data Vital Signs Vital Signs: Vital Signs - 24 hr 04/20/24 12:00 04/20/24 12:00 04/20/24 16:00 Temperature 97.9 F Pulse Rate 80 81 75 Respiratory Rate 14 Blood Pressure 110/52 L Pulse Oximetry 94 Oxygen Delivery Room Air 04/20/24 16:00 04/20/24 20:00 04/20/24 23:43 Temperature 98.3 F Pulse Rate 87 86 72 Respiratory Rate 17 Blood Pressure 102/53 L Pulse Oximetry 97 Oxygen Delivery Room Air 04/21/24 00:34 04/21/24 04:00 Temperature 97.1 F L Pulse Rate 76 80 Respiratory Rate 14 Blood Pressure 113/67 Pulse Oximetry 94 Oxygen Delivery Room Air Intake/Output Intake/Output: Intake & Output 04/18/24 04/19/24 04/20/24 04/21/24 23:59 23:59 23:59 23:59 Intake Total 50 3536.7 1100 Output Total 500 2000 Balance 50 3036.7 -900 Meds/Results Medications: Active Medications Generic Name Dose Route Start Last Admin Trade Name Freq PRN Reason Stop Dose Admin Acetaminophen 650 mg 04/19/24 17:53 04/20/24 17:35 Acetaminophen 325 Mg Tablet PO 650 mg Q4H PRN Administration Mild Pain (1-3) or Fever Hydrocodone Bitart/Acetaminophen 1 tab 04/20/24 17:57 Hydrocodone/Acetaminophen (*Crx) 5-325 Mg Tablet PO Q4H PRN Pain Rated 4-6 Hydrocodone Bitart/Acetaminophen 1 tab 04/20/24 17:57 04/21/24 03:08 Hydrocodone/Acetaminophen (*Crx) 7.5-325 Mg Tablet PO 1 tab Q4H PRN Administration Pain Rated 7-10 Azithromycin 500 mg 04/20/24 09:00 Azithromycin 250 Mg Tablet PO 04/24/24 09:00 DAILY [facility] Enoxaparin Sodium 40 mg 04/20/24 09:00 04/21/24 09:09 Enoxaparin 40 Mg/0.4 Ml Syringe SUB-Q 40 mg DAILY SIMA Administration Fluoxetine HCl 20 mg 04/20/24 09:00 04/21/24 09:10 Fluoxetine Hcl 20 Mg Capsule PO 20 mg DAILY [facility] Administration Levothyroxine Sodium 112 mcg 04/20/24 06:30 04/21/24 05:49 Levothyroxine Sodium 112 Mcg Tablet PO 112 mcg DAILY@0630 [facility] Administration Ondansetron HCl 4 mg 04/19/24 17:53 04/19/24 19:22 Ondansetron Inj 4 Mg/2 Ml Vial IV PUSH 4 mg Q6H PRN Administration Nausea And Vomiting Pregabalin 150 mg 04/19/24 18:20 04/21/24 09:10 Pregabalin (*Crx) 50 Mg Capsule PO 150 mg BID SIMA Administration Ramipril 5 mg 04/20/24 09:00 04/21/24 08:35 Ramipril 5 Mg Capsule PO Not Given DAILY SIMA Senna/Docusate Sodium 1 tab 04/20/24 21:00 04/20/24 21:55 Senna/Docusate Sodium Tablet PO 1 tab HS SIMA Administration Tramadol HCl 50 mg 04/20/24 08:34 04/20/24 15:30 Tramadol Hcl (*Crx) 50 Mg Tablet PO 50 mg Q6-8H PRN Administration Pain 4-6 Trazodone HCl 100 mg 04/19/24 21:00 04/20/24 21:55 Trazodone Hcl 50 Mg Tablet PO 100 mg QHS [facility] Administration Trimethoprim/Sulfamethoxazole 1 tab 04/22/24 09:00 Sulfamethoxazole/Trimethoprim 800/160 Mg Ds Tablet PO 04/26/24 21:01 Q12HR [facility] Radiology Results: ITS Impressions Chest X-Ray 04/19/24 15:26 IMPRESSION: Focal atelectatic changes in the left costophrenic angle otherwise, No acute cardiopulmonary pathology. Chest CTA 04/19/24 17:06 IMPRESSION: 1. Urothelial thickening at the left kidney with asymmetric minimal to mild decreased cortical enhancement suspicious for ascending urinary tract infection and early pyelonephritis. 2. Scattered mild groundglass opacities in the lungs and favor atelectasis over mild pulmonary edema or pneumonia. Number 3. Thoracic aorta normal in caliber with or no stenosis or dissection. Labs Labs: Laboratory Results - last 24 hr 04/21/24 05:47 WBC 9.5 RBC 2.98 L Hgb 9.4 L Hct 27.7 L MCV 93.0 MCH 31.5 H MCHC 33.9 RDW 13.8 Plt Count 134 L MPV 9.8 Immature Gran % (Auto) 0.6 H Neut % (Auto) 80.7 H Lymph % (Auto) 8.8 L [place] % (Auto) 7.5 Eos % (Auto) 2.0 Baso % (Auto) 0.4 Lymph # (Auto) 0.84 L [place] # (Auto) 0.71 Eos # (Auto) 0.19 Baso # (Auto) 0.04 Abs Immat Gran (auto) 0.06 H Absolute Neuts (auto) 7.68 H Absolute Nucleated RBC 0.00 Nucleated RBC % 0.0 % Immature Plt Fraction 3.7 Sodium 129 L Potassium 4.0 Chloride 95 L Carbon Dioxide 30 Anion Gap 4 BUN 13 Creatinine 0.84 Estim Creat Clear Calc 60 Estimated GFR > 60 Glucose 126 H Calculated Osmolality 270 L Calcium 8.2 L Total Bilirubin 0.4 AST 118 H ALT 170 H Alkaline Phosphatase 150 H Total Protein 5.7 L Albumin 2.6 L Quality VTE Prophylaxis VTE prophylaxis: pharmacologic ordered
--- NOTE | 2024-04-21 11:32 | PC.NURSE ---
Made AIRPLANE FLIGHT ATTENDANT aware of positive blood culture/EColi.
[2024-04-21] MEDS: oxyBUTYnin CHLORIDE 5 MG TABLET PO ×2 (13:52→16:44)
[2024-04-21] MEDS: PREGABALIN (*CRX) 25 MG CAPSULE 75 MG PO (16:43)
[2024-04-21] MEDS: traZODone HCL 50 MG TABLET 100 MG PO (21:50)
[2024-04-21] MEDS: SENNA/DOCUSATE SODIUM TABLET 1 TAB PO (21:50)
[2024-04-22] VITALS (8 sets, daily range): BP systolic 125–129; BP diastolic 65–90; PULSE 69–91; RESP 14–18; TEMP 36.6–36.8; O2SAT 94–95
[2024-04-22 05:30] LABS: Basophils Absolute Auto 0.05 K/mm3 (0.00-0.10); Basophils Percent Auto 0.8 % (0.0-1.0); Eosinophils Absolute Auto 0.23 K/mm3 (0.02-0.50); Eosinophils Percent Auto 3.5 % (1.0-6.0); Hematocrit 29.4 % (35.0-42.0); Hemoglobin 9.7 g/dL (11.7-13.8); Immature Granulocyte Absolute 0.06 K/mm3 (0.00-0.00); Immature Granulocyte Percent A 0.9 % (0.0-0.0); Lymphocytes Percent Auto 16.5 % (18.0-42.0); Mean Corpuscular Hemoglobin 31.9 pg (27.0-31.0); Mean Corpuscular Volume 96.7 fL (78.0-102.0); Mean Platelet Volume 10.5 fl (9.2-11.8); Monocytes Absolute Auto 0.76 K/mm3 (0.10-0.90); Monocytes Percent Auto 11.4 % (2.0-11.0); Neutrophils Absolute Auto 4.45 K/mm3 (1.70-7.20); Neutrophils Percent Auto 66.9 % (50.0-70.0); Platelet Count Result 187 K/mm3 (150-420); Red Blood Count 3.04 M/mm3 (4.20-5.40); Red Cell Distribution Width 14.1 % (11.6-14.4); White Blood Count 6.7 K/mm3 (4.8-10.8)
[2024-04-22] MEDS: HYDROcodone/acetaminophen (*CRX) 5-325 MG TABLET 1 TAB PO ×2 (05:39→20:36)
[2024-04-22] MEDS: LEVOTHYROXINE SODIUM 112 MCG TABLET PO (05:39)
[2024-04-22 05:41] LABS: Alanine Aminotransferase 114 U/L (14-59); Albumin Level 2.6 g/dL (3.4-5.0); Alkaline Phosphatase 160 U/L (46-116); Anion Gap 6 mmol/L (4-12); Aspartate Amino Transferase 52 U/L (15-37); Bilirubin,Total 0.3 mg/dL (0.00-1.00); Blood Urea Nitrogen 6 mg/dL (7-18); Calcium 8.3 mg/dL (8.5-10.1); Carbon Dioxide 29 mmol/L (21-32); Chloride 100 mmol/L (98-108); Estimated CRCL calculation 72 ml/min; Estimated Glomerular Filt Rate > 60; Glucose 110 mg/dL (70-99); Osmolality Calculated 278 mOsm/kg (285-295); Potassium 4.2 mmol/L (3.5-5.1); Sodium 135 mmol/L (136-145); Total Protein 5.3 g/dL (6.4-8.2)
--- NOTE | 2024-04-22 09:09 | PC.NURSE ---
LITIGATION ASSISTANT made aware of Blood culture and sensitivity.
[2024-04-22] MEDS: SULFAMETHOXAZOLE/TRIMETHOPRIM 800/160 MG DS TABLET 1 TAB PO ×2 (09:15→20:34)
[2024-04-22] MEDS: oxyBUTYnin CHLORIDE 5 MG TABLET PO ×3 (09:15→17:18)
[2024-04-22] MEDS: FLUoxetine HCL 20 MG CAPSULE PO (09:15)
[2024-04-22] MEDS: PREGABALIN (*CRX) 25 MG CAPSULE 75 MG PO ×2 (09:16→17:18)
[2024-04-22] MEDS: ENOXAPARIN 40 MG/0.4 ML SYRINGE SUB-Q (09:17)
--- NOTE | 2024-04-22 09:24 | P.PNIM_ITS ---
Progress Note: A&P Assessment and Plan (1) Acute pyelonephritis: Code(s): N10 - Acute pyelonephritis Status: Acute Assessment and Plan: * UA showing 1+ urine ketone, 1+ urine blood, positive nitrate, 1+ leukocyte, 3- 5 urine RBC, 10-15 urine WBC, 4+ urine bacteria * Urine culture showing E coli on final read * blood culture showing Gram-negative bacilli isolated in both sets of blood cultures on preliminary read. * 2nd set of blood cultures showing no growth to date on preliminary read. * Continue Bactrim * Not meeting SIRS or sepsis criteria on admission * Initial white blood count 8.0 * White blood cell count today is 6.7 * afebrile * Ditropan ordered for bladder spasms and is showing improvement today (2) Elevated LFTs: Code(s): R79.89 - Other specified abnormal findings of blood chemistry Status: Acute Assessment and Plan: * AST 52, ALT 114, alkaline phos 160--trending downward * Hepatitis panel pending * Will also get ultrasound of liver * Patient currently on Lyrica. Ramipril, Trazodone, and Prozac which all of these medications can increase liver enzymes (3) Hypothyroidism: Code(s): E03.9 - Hypothyroidism, unspecified Status: Acute Assessment and Plan: * Continue Synthroid * TSH 1.63 (4) Hypertension: Code(s): I10 - Essential (primary) hypertension Status: Acute Assessment and Plan: * Blood pressure ranging 102/53 to 116/62 * Continue ramipril (5) Depression: Code(s): F32.9 - Major depressive disorder, single episode, unspecified Status: Acute Assessment and Plan: * Continue Prozac (6) Fibromyalgia: Code(s): M79.7 - Fibromyalgia Status: Acute Assessment and Plan: * Lyrica decreased to 75 mg BID * Increased weakness * PT and OT ordered (7) Primary insomnia: Code(s): F51.01 - Primary insomnia Status: Acute Assessment and Plan: * Continue trazodone (8) Obstructive sleep apnea on CPAP: Code(s): G47.33 - Obstructive sleep apnea (adult) (pediatric) Status: Acute Assessment and Plan: * patient stopped using CPAP at home for her VIC Time Spent With Patient Time with patient: 15 - 25 minutes Subjective Date/time seen: 04/22/24 09:24 Interval history: Interval history: This is a 89 year old female with a significant past medical history of depression, hypertension, hypothyroidism, macular degeneration, degenerative disc disease, insomnia, hyperlipidemia, fibromyalgia, VIC, GERD, former smoker who presented to the hospital with fever, chills, weakness that started yesterday morning. patient states that she started to have back pain a couple weeks ago however has chronic back pain due to herniated disc and was unable to determine if it was more her back acting up or if it was kidney. She said on she noticed that her bladder was having spasms are cramping when urinating and thought that she was having symptoms of a UTI at that point. She woke up on Monday with fever and chills and worsening back pain which was higher up than her normal pain. She decided to come in for further evaluation. Work up in the hospital included a chest x-ray which shown focal atelectatic changes, no acute cardiopulmonary pathology. Chest CTA shown Urothelial thickening at the left kidney with asymmetric minimal to mild decreased cortical enhancement suspicious for ascending urinary tract infection and early pyelonephritis, scattered ground glass opacities in the lungs and favor atelectasis, thoracic aorta without dissection or stenosis, no evidence of PE. Initial labs revealed a white blood cell count of 8.0, hemoglobin 11.2, sodium 133, chloride 95, AST 227, ALT 148, alkaline phosphate 140, proBNP 13 0 3, troponin negative x2. UA was obtained which showed 1+ urine ketone, 1+ urine blood, positive nitrate, 1+ leukocyte, 3-5 urine RBC, 10-15 urine WBC, 4+ bacteria. Respiratory panel was negative for influenza a and B, RSV, COVID. Blood and urine cultures were obtained and are pending. Patient was started on Zosyn in the ED and given Tylenol and started on IV fluids. She was then transition to Rocephin 2 g daily. Subjective: Patient reports that she feels like she is in a fog ever since they increased the Lyrica for her chronic back pain. She also is reporting tremors and weakness due to her chronic pain. She is reporting bladder spasms as well. Labs and cultures reviewed. Review of Systems Review of Systems: All systems reviewed & are unremarkable except as noted in HPI and below Constitutional: Constitutional: Reports as per HPI and Reports no additional constitutional complaints Eyes: Eyes: Reports as per HPI and Reports no additional eye complaints ENT: Reports system reviewed and no additional complaints, except as documented and Reports as per HPI Cardiovascular: Cardiovascular: Reports as per HPI and Reports no additional cardiovascular complaints Respiratory: Respiratory: Reports as per HPI and Reports no additional respiratory complaints Gastrointestinal: Gastrointestinal: Reports as per HPI and Reports no additional gastrointestinal complaints Genitourinary: Genitourinary: Reports no additional female genitourinary complaints and Reports as per HPI Musculoskeletal: Musculoskeletal: Reports no additional musculoskeletal complaints and Reports as per HPI Integumentary/Breasts: Skin/Breast: Reports system reviewed and no additional complaints, except as docu and Reports as per HPI Neurologic: Reports system reviewed and no additional complaints, except as documented and Reports as per HPI Psychiatric: Psychiatric: Reports no additional psychiatric complaints and Reports as per HPI Exam Narrative: General: In no acute distress Cardiac: Normal S1 and S2. No murmur, gallops or friction rubs, peripheral pulses intact. Respiratory: Lungs clear to auscultation, no adventitious lung sounds, currently on room air Gastrointestinal: soft, non-distended, non-tender, normoactive bowel sounds. Extremities: mild pedal swelling : voiding without difficulty. Neuro: Alert and oriented x4 Objective Data Vital Signs Vital Signs: Vital Signs - 24 hr 04/21/24 12:00 04/21/24 15:49 04/21/24 15:51 Temperature 97.2 F L Pulse Rate 76 75 75 Respiratory Rate 16 Blood Pressure 120/73 Pulse Oximetry 95 Oxygen Delivery Room Air Fraction of Inspired Oxygen 95 04/21/24 20:00 04/22/24 00:00 04/22/24 01:00 Temperature 98.3 F Pulse Rate 96 75 91 Respiratory Rate 17 Blood Pressure 125/69 Pulse Oximetry 95 Oxygen Delivery Room Air Fraction of Inspired Oxygen 04/22/24 03:23 Temperature Pulse Rate 71 Respiratory Rate Blood Pressure Pulse Oximetry Oxygen Delivery Fraction of Inspired Oxygen Intake/Output Intake/Output: Intake & Output 04/19/24 04/20/24 04/21/24 04/22/24 23:59 23:59 23:59 23:59 Intake Total 50 3536.7 1950 500 Output Total 500 2000 Balance 50 3036.7 -50 500 Meds/Results Medications: Active Medications Generic Name Dose Route Start Last Admin Trade Name Freq PRN Reason Stop Dose Admin Acetaminophen 650 mg 04/19/24 17:53 04/20/24 17:35 Acetaminophen 325 Mg Tablet PO 650 mg Q4H PRN Administration Mild Pain (1-3) or Fever Hydrocodone Bitart/Acetaminophen 1 tab 04/20/24 17:57 04/22/24 05:39 Hydrocodone/Acetaminophen (*Crx) 5-325 Mg Tablet PO 1 tab Q4H PRN Administration Pain Rated 4-6 Hydrocodone Bitart/Acetaminophen 1 tab 04/20/24 17:57 04/21/24 21:50 Hydrocodone/Acetaminophen (*Crx) 7.5-325 Mg Tablet PO 1 tab Q4H PRN Administration Pain Rated 7-10 Azithromycin 500 mg 04/20/24 09:00 Azithromycin 250 Mg Tablet PO 04/24/24 09:00 DAILY SIMA Enoxaparin Sodium 40 mg 04/20/24 09:00 04/22/24 09:17 Enoxaparin 40 Mg/0.4 Ml Syringe SUB-Q 40 mg DAILY SIMA Administration Fluoxetine HCl 20 mg 04/20/24 09:00 04/22/24 09:15 Fluoxetine Hcl 20 Mg Capsule PO 20 mg DAILY SIMA Administration Furosemide 20 mg 04/22/24 09:22 Furosemide Inj 20 Mg/2 Ml Vial IV PUSH 04/22/24 09:23 ONCE ONE Levothyroxine Sodium 112 mcg 04/20/24 06:30 04/22/24 05:39 Levothyroxine Sodium 112 Mcg Tablet PO 112 mcg DAILY@0630 SIMA Administration Ondansetron HCl 4 mg 04/19/24 17:53 04/19/24 19:22 Ondansetron Inj 4 Mg/2 Ml Vial IV PUSH 4 mg Q6H PRN Administration Nausea And Vomiting Oxybutynin Chloride 5 mg 04/21/24 13:00 04/22/24 09:15 Oxybutynin Chloride 5 Mg Tablet PO 5 mg TID SIMA Administration Polyethylene Glycol 17 gm 04/22/24 09:25 Polyethylene Glycol 3350 17 Gm Powd.Pack PO QAM SIMA Pregabalin 75 mg 04/21/24 17:00 04/22/24 09:16 Pregabalin (*Crx) 25 Mg Capsule PO 75 mg BID SIMA Administration Ramipril 5 mg 04/20/24 09:00 04/22/24 09:16 Ramipril 5 Mg Capsule PO Not Given DAILY SIMA Senna/Docusate Sodium 1 tab 04/20/24 21:00 04/21/24 21:50 Senna/Docusate Sodium Tablet PO 1 tab HS SIMA Administration Tramadol HCl 50 mg 04/20/24 08:34 04/20/24 15:30 Tramadol Hcl (*Crx) 50 Mg Tablet PO 50 mg Q6-8H PRN Administration Pain 4-6 Trazodone HCl 100 mg 04/19/24 21:00 04/21/24 21:50 Trazodone Hcl 50 Mg Tablet PO 100 mg QHS SIMA Administration Trimethoprim/Sulfamethoxazole 1 tab 04/22/24 09:00 04/22/24 09:15 Sulfamethoxazole/Trimethoprim 800/160 Mg Ds Tablet PO 04/26/24 21:01 1 tab Q12HR SIMA Administration Radiology Results: ITS Impressions Chest X-Ray 04/19/24 15:26 IMPRESSION: Focal atelectatic changes in the left costophrenic angle otherwise, No acute cardiopulmonary pathology. Chest CTA 04/19/24 17:06 IMPRESSION: 1. Urothelial thickening at the left kidney with asymmetric minimal to mild decreased cortical enhancement suspicious for ascending urinary tract infection and early pyelonephritis. 2. Scattered mild groundglass opacities in the lungs and favor atelectasis over mild pulmonary edema or pneumonia. Number 3. Thoracic aorta normal in caliber with or no stenosis or dissection. Abdomen Ultrasound 04/22/24 07:36 Impression: Diffuse fatty infiltration of liver. Cholelithiasis. Labs Labs: Laboratory Results - last 24 hr 04/22/24 05:11 WBC 6.7 RBC 3.04 L Hgb 9.7 L Hct 29.4 L MCV 96.7 MCH 31.9 H MCHC 33.0 RDW 14.1 Plt Count 187 MPV 10.5 Immature Gran % (Auto) 0.9 H Neut % (Auto) 66.9 Lymph % (Auto) 16.5 L [place] % (Auto) 11.4 H Eos % (Auto) 3.5 Baso % (Auto) 0.8 Lymph # (Auto) 1.10 [place] # (Auto) 0.76 Eos # (Auto) 0.23 Baso # (Auto) 0.05 Abs Immat Gran (auto) 0.06 H Absolute Neuts (auto) 4.45 Absolute Nucleated RBC 0.00 Nucleated RBC % 0.0 Sodium 135 L Potassium 4.2 Chloride 100 Carbon Dioxide 29 Anion Gap 6 BUN 6 L Creatinine 0.70 Estim Creat Clear Calc 72 Estimated GFR > 60 Glucose 110 H Calculated Osmolality 278 L Calcium 8.3 L Total Bilirubin 0.3 AST 52 H ALT 114 H Alkaline Phosphatase 160 H Total Protein 5.3 L Albumin 2.6 L Quality VTE Prophylaxis VTE prophylaxis: pharmacologic ordered
[2024-04-22] MEDS: polyethylene glycoL 3350 17 GM POWD.PACK PO (10:40)
[2024-04-22] MEDS: HYDROcodone/acetaminophen (*CRX) 7.5-325 MG TABLET 1 TAB PO (11:46)
[2024-04-22] MEDS: FUROSEMIDE 20 MG TABLET PO (11:48)
[2024-04-22] MEDS: traZODone HCL 50 MG TABLET 100 MG PO (20:34)
[2024-04-22] MEDS: SENNA/DOCUSATE SODIUM TABLET 1 TAB PO (20:34)
[2024-04-23 01:00] VITALS: BP 148/82; PULSE 80; RESP 17; TEMP 36.7; O2SAT 99
[2024-04-23 05:30] LABS: Basophils Absolute Auto 0.05 K/mm3 (0.00-0.10); Basophils Percent Auto 0.8 % (0.0-1.0); Eosinophils Absolute Auto 0.25 K/mm3 (0.02-0.50); Hematocrit 29.8 % (35.0-42.0); Hemoglobin 9.8 g/dL (11.7-13.8); Immature Granulocyte Absolute 0.11 K/mm3 (0.00-0.00); Immature Granulocyte Percent A 1.8 % (0.0-0.0); Lymphocytes Absolute Auto 1.16 K/mm3 (1.10-4.50); Lymphocytes Percent Auto 18.6 % (18.0-42.0); Mean Corpuscular HGB Conc 32.9 g/dL (32-36); Mean Corpuscular Volume 94.3 fL (78.0-102.0); Mean Platelet Volume 9.9 fl (9.2-11.8); Monocytes Absolute Auto 0.75 K/mm3 (0.10-0.90); Monocytes Percent Auto 12.1 % (2.0-11.0); Neutrophils Percent Auto 62.7 % (50.0-70.0); Platelet Count Result 170 K/mm3 (150-420); Red Blood Count 3.16 M/mm3 (4.20-5.40); Red Cell Distribution Width 13.8 % (11.6-14.4); White Blood Count 6.2 K/mm3 (4.8-10.8)
[2024-04-23 05:47] LABS: Alanine Aminotransferase 90 U/L (14-59); Albumin Level 2.6 g/dL (3.4-5.0); Alkaline Phosphatase 177 U/L (46-116); Anion Gap 4 mmol/L (4-12); Aspartate Amino Transferase 29 U/L (15-37); Bilirubin,Total 0.3 mg/dL (0.00-1.00); Blood Urea Nitrogen 5 mg/dL (7-18); Carbon Dioxide 31 mmol/L (21-32); Chloride 101 mmol/L (98-108); Estimated CRCL calculation 57 ml/min; Estimated Glomerular Filt Rate > 60; Glucose 107 mg/dL (70-99); Osmolality Calculated 279 mOsm/kg (285-295); Potassium 4.3 mmol/L (3.5-5.1); Sodium 136 mmol/L (136-145)
[2024-04-23] MEDS: LEVOTHYROXINE SODIUM 112 MCG TABLET PO (05:57)
[2024-04-23] MEDS: HYDROcodone/acetaminophen (*CRX) 5-325 MG TABLET 1 TAB PO (06:11)
[2024-04-23] MEDS: ENOXAPARIN 40 MG/0.4 ML SYRINGE SUB-Q (08:37)
[2024-04-23] MEDS: polyethylene glycoL 3350 17 GM POWD.PACK PO (08:37)
[2024-04-23] MEDS: SULFAMETHOXAZOLE/TRIMETHOPRIM 800/160 MG DS TABLET 1 TAB PO (08:38)
[2024-04-23] MEDS: PREGABALIN (*CRX) 25 MG CAPSULE 75 MG PO (08:38)
[2024-04-23] MEDS: FLUoxetine HCL 20 MG CAPSULE PO (08:38)
[2024-04-23] MEDS: oxyBUTYnin CHLORIDE 5 MG TABLET PO ×2 (08:39→12:52)
[2024-04-23 09:00] VITALS: BP 137/77; PULSE 77; RESP 16; TEMP 36.4; O2SAT 94
--- NOTE | 2024-04-23 09:38 | P.DS_ITS ---
DS: Admitting Diagnosis Discharge Date 04/23/24 Admitting Diagnosis Acute pyelonephritis elevated LFTs hypothyroidism hypertension depression fibromyalgia primary insomnia obstructive sleep apnea on CPAP DS: Discharge Diagnosis Discharge Diagnosis (1) Acute pyelonephritis: Code(s): N10 - Acute pyelonephritis Status: Acute (2) Elevated LFTs: Code(s): R79.89 - Other specified abnormal findings of blood chemistry Status: Acute (3) Hypothyroidism: Code(s): E03.9 - Hypothyroidism, unspecified Status: Acute (4) Hypertension: Code(s): I10 - Essential (primary) hypertension Status: Acute (5) Depression: Code(s): F32.9 - Major depressive disorder, single episode, unspecified Status: Acute (6) Fibromyalgia: Code(s): M79.7 - Fibromyalgia Status: Acute (7) Primary insomnia: Code(s): F51.01 - Primary insomnia Status: Acute (8) Obstructive sleep apnea on CPAP: Code(s): G47.33 - Obstructive sleep apnea (adult) (pediatric) Status: Acute DS: Summary Hospital Course Reason for hospitalization: Acute pyelonephritis elevated LFTs hypothyroidism hypertension depression fibromyalgia primary insomnia obstructive sleep apnea on CPAP Hospital Course: This is a 89 year old female with a significant past medical history of depression, hypertension, hypothyroidism, macular degeneration, degenerative disc disease, insomnia, hyperlipidemia, fibromyalgia, VIC, GERD, former smoker who presented to the hospital with fever, chills, weakness that started yesterday morning. patient states that she started to have back pain a couple weeks ago however has chronic back pain due to herniated disc and was unable to determine if it was more her back acting up or if it was kidney. She said on she noticed that her bladder was having spasms are cramping when urinating and thought that she was having symptoms of a UTI at that point. She woke up on Monday with fever and chills and worsening back pain which was higher up than her normal pain. She decided to come in for further evaluation. Work up in the hospital included a chest x-ray which shown focal atelectatic changes, no acute cardiopulmonary pathology. Chest CTA shown Urothelial thickening at the left kidney with asymmetric minimal to mild decreased cortical enhancement suspicious for ascending urinary tract infection and early pyelonephritis, scattered ground glass opacities in the lungs and favor atelectasis, thoracic aorta without dissection or stenosis, no evidence of PE. Initial labs revealed a white blood cell count of 8.0, hemoglobin 11.2, sodium 133, chloride 95, AST 227, ALT 148, alkaline phosphate 140, proBNP 13 0 3, troponin negative x2. UA was obtained which showed 1+ urine ketone, 1+ urine blood, positive nitrate, 1+ leukocyte, 3-5 urine RBC, 10-15 urine WBC, 4+ bacteria. Respiratory panel was negative for influenza a and B, RSV, COVID. Blood and urine cultures were obtained and are pending. Patient was started on Zosyn in the ED and given Tylenol and started on IV fluids. She was then transition to Rocephin 2 g daily. First set of blood cultures came back with E coli as well as the urine culture showed E coli. Rocephin was transitioned over to Bactrim and a new set of blood cultures were obtained which are showing no growth x2 days. Vital signs are stable, she is afebrile, she is currently on room air. She is stable for discharge at this time. She will need to finish her course of antibiotics and follow-up with her primary care physician in 1-2 weeks. patient was also given a prescription for her chronic back pain as she is planning on having surgery next month and her tramadol at home was not working. She states she is moving around better with [place]. she was sent with a prescription of [place] for pain control. final diagnosis: acute pyelonephritis, transaminitis Status at Discharge Cognitive/behavioral status at discharge: alert oriented x4 Functional status at discharge: uses cane/walker Overall status at discharge: patient is progressing back to baseline Time Spent with Patient Time attestation: Total time spent providing and/or coordinating discharge services: Time spent: Greater than 30 minutes Exam Narrative: General: In no acute distress Cardiac: Normal S1 and S2. No murmur, gallops or friction rubs, peripheral pulses intact. Respiratory: Lungs clear to auscultation, no adventitious lung sounds, currently on room air Gastrointestinal: soft, non-distended, non-tender, normoactive bowel sounds. Extremities: mild pedal swelling : voiding without difficulty. Neuro: Alert and oriented x4 DS: Data Data Completed and Pending Completed studies during hospitalization: abdomen ultrasound Pending studies at discharge: blood cultures Labs on day of discharge: Labs from last 24 hours 04/23/24 05:03 WBC 6.2 RBC 3.16 L Hgb 9.8 L Hct 29.8 L MCV 94.3 MCH 31.0 MCHC 32.9 RDW 13.8 Plt Count 170 MPV 9.9 Immature Gran % (Auto) 1.8 H Neut % (Auto) 62.7 Lymph % (Auto) 18.6 [place] % (Auto) 12.1 H Eos % (Auto) 4.0 Baso % (Auto) 0.8 Lymph # (Auto) 1.16 [place] # (Auto) 0.75 Eos # (Auto) 0.25 Baso # (Auto) 0.05 Abs Immat Gran (auto) 0.11 H Absolute Neuts (auto) 3.90 Absolute Nucleated RBC 0.00 Nucleated RBC % 0.0 Sodium 136 Potassium 4.3 Chloride 101 Carbon Dioxide 31 Anion Gap 4 BUN 5 L Creatinine 0.90 Estim Creat Clear Calc 57 Estimated GFR > 60 Glucose 107 H Calculated Osmolality 279 L Calcium 9.0 Total Bilirubin 0.3 AST 29 ALT 90 H Alkaline Phosphatase 177 H Total Protein 6.0 L Albumin 2.6 L Preliminary micro results at discharge 04/19/24 14:51 Blood Culture - Preliminary Blood Escherichia Coli 04/21/24 11:33 Blood Culture - Preliminary Blood 04/21/24 11:33 Blood Culture - Preliminary Blood Procedures/Treatments: none Discharge Plan Discharge Attending physician on discharge: Julio Amador Consulting providers: Lina Salomon Discharging Clinician: Lina Salomon Anticipated Discharge Date/Time: 04/23/24 09:34 Patient Disposition: Home, Self-Care Activity: as tolerated Diet: as tolerated Discharge Instructions: * Finish all your antibiotic as directed even if you are feeling better * Follow up with primary care doctor in 1-2 weeks Patient Instructions: Antibiotic Form, Sulfamethoxazole/Trimethoprim (By mouth), Oxybutynin (By mouth), Hydrocodone/Acetaminophen (By mouth), Tramadol (By mouth), Gallstones (DC), Urinary Tract Infection in Women (DC), Fall Prevention for Older Adults (DC), Kidney Infection (DC), Non-Alcoholic Fatty Liver Disease (DC) Patient Language: Albanian Stand Alone Forms: General Discharge Information Follow-up/Referrals: Priscilla Nunes MD [Primary Care Provider] - 1 week Discharge Medications: New hydrocodone-acetaminophen 5-325 mg Tablet 1 tablet PO Q4H PRN (Reason: Pain Rated 4-6) Qty: 40 0RF sulfamethoxazole-trimethoprim 800-160 mg Tablet 1 tab PO Q12HR Qty: 13 0RF oxybutynin chloride 5 mg Tablet 5 mg PO TID Qty: 30 0RF Continued ramipril 5 mg capsule 5 mg PO DAILY fluoxetine 20 mg capsule 20 mg PO DAILY pregabalin 150 mg capsule 150 mg PO BID meclizine 12.5 mg tablet 12.5 mg PO TID PRN (Reason: Dizziness) mecobalamin (vitamin B12) 2,500 mcg tablet,chewable 2,500 mcg PO DAILY acetaminophen [Tylenol Arthritis Pain] 650 mg tablet extended release 650 mg PO Q12H levothyroxine 112 mcg capsule 112 mcg PO DAILY trazodone 100 mg tablet 100 mg PO QHS tramadol 50 mg tablet 50 mg PO Q6-8H PRN (Reason: Pain) Date of admission: 04/19/24 17:53 Primary Care Provider: Priscilla Nunes Admitting Provider: Julio Amador Attending physician on admission: Julio Amador Condition: Improved Quality VTE Prophylaxis VTE prophylaxis: pharmacologic ordered
--- NOTE | 2024-04-23 14:05 | PC.NURSE ---
Discharge instructions given to patient and patient's daughter. Both voiced understanding. Personal belongings gathered by patient and family and sent home with patient. Patient left unit in w/c, accompanied by nurse and patient's daughter. Patient left hospital grounds in privately owned vehicle.
[2024-04-24 03:28] LABS: Hepatitis B Surface Antigen NON-REACTIVE (NON-REACTIVE)
[2024-04-24 04:03] LABS: Hepatitis A Antibody IgM NON-REACTIVE (NON-REACTIVE); Hepatitis B Core Antibody NON-REACTIVE (NON-REACTIVE); Hepatitis C Virus Antibody NON-REACTIVE (NON-REACTIVE)
--- NOTE | 2024-04-24 10:17 | PC.NURSE ---
Discharge call back complete, unable to get script at pharmacy, wanted re faxed to another pharmacy, sent to [facility] [place] for patient, no other questions
== END 2024-04-23 14:05 | disposition home or self-care (01) ==
LOC: CHSED 17:43 → CHS2ND 18:05
PROVIDERS: Nurse Practitioner Acute Care; Admitting Provider Internal Medicine; Emergency Provider Emergency Medicine; PCP Internal Medicine; Visit Provider Internal Medicine
DX: N10 Acute pyelonephritis (principal); B96.20 Unspecified Escherichia coli [E. coli] as the cause of diseases classified elsewhere; R79.89 Other specified abnormal findings of blood chemistry; R74.8 Abnormal levels of other serum enzymes; E03.9 Hypothyroidism, unspecified; I10 Essential (primary) hypertension; F32.9 Major depressive disorder, single episode, unspecified; M79.7 Fibromyalgia; F51.01 Primary insomnia; H35.30 Unspecified macular degeneration; G47.33 Obstructive sleep apnea (adult) (pediatric); Z99.89 Dependence on other enabling machines and devices; K21.9 Gastro-esophageal reflux disease without esophagitis; E78.2 Mixed hyperlipidemia; M54.9 Dorsalgia, unspecified; G89.29 Other chronic pain; Z20.822 Contact with and (suspected) exposure to COVID-19; Z87.891 Personal history of nicotine dependence; Z79.899 Other long term (current) drug therapy; Z88.7 Allergy status to serum and vaccine
CPT/HCPCS: 36415; 71046; 71275; 76705; 80053; 80074; 81001; 83605; 83880; 84443; 84484; 85025; 85055; 85610; 85730; 87040; 87077; 87086; 87088; 87147; 87186; 87637; 93005; 96365; 96366; 96367; 96375; 97161; 97165; 97530; 99285; A9270; G0378; J0696; J1650; J2405; J2543; J7030; Q9967

== ENCOUNTER 2024-05-24 11:11 | Outpatient (CLI) | payer MEDICARE, SELFPAY ==
--- NOTE | ~2024-05-24 | XR_ITS ---
XR chest 2V Ordering provider: Dallas Young History: 73 years Female with . HTN,PREVIOUS SMOKER,PRE OP BACK SURGERY . Comparison: April 19, 2024 FINDINGS: MEDIASTINUM: The cardiac silhouette is not enlarged. LUNGS: No infiltrates, effusions or pneumothorax. OTHER: No free air under the diaphragm. Degenerative changes of the spine. Postoperative changes in t he lumbar area. IMPRESSION: No acute cardiopulmonary pathology. Reviewed, dictated and finalized at location A. [employer]
[2024-05-24 11:32] LABS: Basophils Absolute Auto 0.04 K/mm3 (0.00-0.10); Basophils Percent Auto 0.7 % (0.0-1.0); Eosinophils Absolute Auto 0.13 K/mm3 (0.02-0.50); Eosinophils Percent Auto 2.1 % (1.0-6.0); Immature Granulocyte Absolute 0.03 K/mm3 (0.00-0.00); Immature Granulocyte Percent A 0.5 % (0.0-0.0); Lymphocytes Absolute Auto 2.15 K/mm3 (1.10-4.50); Lymphocytes Percent Auto 35.1 % (18.0-42.0); Mean Corpuscular HGB Conc 32.4 g/dL (32-36); Mean Corpuscular Hemoglobin 30.5 pg (27.0-31.0); Mean Corpuscular Volume 94.2 fL (78.0-102.0); Mean Platelet Volume 10.1 fl (9.2-11.8); Monocytes Absolute Auto 0.39 K/mm3 (0.10-0.90); Monocytes Percent Auto 6.4 % (2.0-11.0); Neutrophils Absolute Auto 3.39 K/mm3 (1.70-7.20); Neutrophils Percent Auto 55.2 % (50.0-70.0); Platelet Count Result 202 K/mm3 (150-420); Red Blood Count 3.61 M/mm3 (4.20-5.40); Red Cell Distribution Width 13.3 % (11.6-14.4); White Blood Count 6.1 K/mm3 (4.8-10.8)
--- NOTE | 2024-05-24 11:32 | ECG_ITS ---
Test Date: 2024-05-24 11:50:38 Measurements Intervals [place] Rate: 73 P: 26 WI: 163 QRS: 1 QRSD: 122 T: 52 QT: 397 QTc: 439 Interpretive Statements SINUS RHYTHM RIGHT BUNDLE BRANCH BLOCK [120+ ms QRS DURATION, UPRIGHT V1, 40+ ms S IN I/aVL/V4/V5/V6] Compared to ECG 04/19/2024 14:51:36 Sinus tachycardia no longer present Electronically Signed On 05-24-2024 12:29:25 SURGICAL ENDOSCOPIST by Vale Velasquez M.D.
[2024-05-24 11:46] LABS: INR 0.9; Partial Thromboplastin Time 25.9 Sec (23.9-30.70); Prothrombin Time 10.4 Seconds (9.50-12.1)
[2024-05-24 12:21] LABS: Alanine Aminotransferase 22 U/L (14-59); Albumin Level 3.8 g/dL (3.4-5.0); Alkaline Phosphatase 88 U/L (46-116); Anion Gap 7 mmol/L (4-12); Aspartate Amino Transferase 20 U/L (15-37); Bilirubin,Total 0.5 mg/dL (0.00-1.00); Blood Urea Nitrogen 9 mg/dL (7-18); Calcium 8.9 mg/dL (8.5-10.1); Carbon Dioxide 30 mmol/L (21-32); Chloride 100 mmol/L (98-108); Estimated Glomerular Filt Rate > 60; Glucose 107 mg/dL (70-99); Osmolality Calculated 282 mOsm/kg (285-295); Potassium 4.3 mmol/L (3.5-5.1); Sodium 137 mmol/L (136-145); Total Protein 6.5 g/dL (6.4-8.2)
[2024-05-28 05:19] LABS: Vitamin D 25 Hydroxy 57 ng/mL (30-100)
== END 2024-05-24 11:12 | disposition home or self-care (01) ==
PROVIDERS: PCP Internal Medicine
DX: Z01.818 Encounter for other preprocedural examination (principal); I10 Essential (primary) hypertension; Z87.891 Personal history of nicotine dependence; I45.10 Unspecified right bundle-branch block; R07.9 Chest pain, unspecified; I47.29 Other ventricular tachycardia; Z68.33 Body mass index [BMI] 33.0-33.9, adult
CPT/HCPCS: 36415; 71046; 80053; 82306; 85025; 85610; 85730; 93005

== ENCOUNTER 2024-07-04 13:51 | Outpatient (RCR) | payer MEDICARE, SELFPAY ==
--- NOTE | 2024-07-04 15:14 | OPREHPOC ---
Outpatient Therapy Plan of Care This is a Multidisciplinary Plan of Care that may contain components documented by all disciplines (PT, OT, and ST.) PT Problem 1 PT Problem #1 Knowledge Deficit PT Goal 1 Goal / Goal Update 1. independent and compliant with HEP Target Visit 6 PT Problem 2 PT Problem #2 Impaired Balance PT Goal 1 Goal / Goal Update 1. tinetti to display moderate fall risk or less 2. TUG to be completed in 20 seconds or less 3. 5x sit to stand to be completed in 30 seconds or less Target Visit 12 PT Problem 3 PT Problem #3 Impaired Functional Mobility PT Goal 1 Goal / Goal Update 1. patient to ambulates 10 minutes in clinic with appropriate AD and no rest 2. patient to perform 15 minutes standing exercises without rest needed Target Visit 12 PT Goal 1 Goal / Goal Update 1. improve bilateral hip strength to 4+/5 2. improve bilateral knee strength to 4+/5 3. improve bilateral ankle strength to 4+/5
--- NOTE | 2024-07-04 15:15 | PTOPEVAL1 ---
Assessment and note entered by JT File, PT Evaluation Information Assessment Status Evaluation Onset 06/11/24 Subjective Information patient reports she had a laminectomy on 06/11/24. she had a spinal fluid leak after wards 2x's and had to have 2 repeat surgeries the next few days to close it up. she is now really weak and coming to therapy to improve her strength, mobility, and endurance. she reports she is using a walker around the house, and has one in her car normally, but did not have it in there today. she reports she was in [facility] doing rehab for about a week. Reported Pain Level Pain Score 6: Self Report Assessment PT Clinical Summary mrs. maza is a 73 yo woman who presents to skilled PT services for rehab following several back surgeries last month. she presents with deficits in LE strength, endurance, gait efficiency, and functional activity performance. continued skilled PT is indicated to improve her objective/functional deficits to return to her prior level functional activity performance/ quality of life. Plan of Care Interventions Gait Training,Neuro Re-education,Patient/Caregiver Education,Therapeutic Activities,Therapeutic Exercise PT Services Indicated Yes Treatment Frequency and 3x weekly for 12 visits Duration These treatments will address the objective and functional deficits as defined above. The patient will be advanced safely and appropriately in order for the patient to progress towards his/her prior level of function. Additional exercises will be introduced and as well as a comprehensive home exercise program upon discharge, if needed, ?to ensure carryover of functional gains achieved in the clinic. This treatment plan has been reviewed and agreement upon by the patient.
--- NOTE | 2024-07-24 13:55 | PCPTNOTE ---
Cancelled session due to weather.
--- NOTE | 2024-08-07 12:02 | OPREHPOC ---
Outpatient Therapy Plan of Care This is a Multidisciplinary Plan of Care that may contain components documented by all disciplines (PT, OT, and ST.) PT Problem 1 PT Problem #1 Knowledge Deficit PT Goal 1 Goal / Goal Update 1. independent and compliant with HEP Target Visit 6 Progress Met PT Goal 2 Goal / Goal Update continue to progress Target Visit 24 PT Problem 2 PT Problem #2 Impaired Balance PT Goal 1 Goal / Goal Update 1. tinetti to display moderate fall risk or less 2. TUG to be completed in 20 seconds or less 3. 5x sit to stand to be completed in 30 seconds or less Target Visit 12 Progress Not Met PT Goal 2 Goal / Goal Update continue Target Visit 24 PT Problem 3 PT Problem #3 Impaired Functional Mobility PT Goal 1 Goal / Goal Update 1. patient to ambulates 10 minutes in clinic with appropriate AD and no rest 2. patient to perform 15 minutes standing exercises without rest needed Target Visit 12 Progress Not Met PT Goal 2 Goal / Goal Update continue Target Visit 24 PT Goal 1 Goal / Goal Update 1. improve bilateral hip strength to 4+/5 -not met 2. improve bilateral knee strength to 4+/5 -met 3. improve bilateral ankle strength to 4+/5 -met for left, not met for right Progress Partially Met PT Goal 2 Goal / Goal Update continue Target Visit 24
--- NOTE | 2024-08-07 12:02 | PTOPPROG ---
Assessment and note entered by Keerthi Michel, PT Evaluation Information Assessment Status Progress Diagnosis s/p L3-4 LDL, L3-4 TLIF, L3-S1 instr I & D x 2 ICD-10 Condition Codes (PT) Pain in low back M54.50,Encounter for other orthopedic aftercare Z47.89 Onset 06/11/24 Subjective Information Avis Gale reports that she continues to have intermittent low back pain but she has weaned herself off prescribed pain medication and has not used any for a week. She uses OTC strength Tylenol a couple times a day for pain control. She notes she still has difficulty getting out of chairs, walking for long distances, and standing for long periods. She has not been able to perform housechores like making her bed. She also has not been able to go to the grocery store or holiness yet. She c/o being weak still. She also notes nausea, dizziness, and lightheadedness when she gets up in the am. She is having blood work by her PCP next week. She will see her surgeon again on 08/25/24. Assessment PT Clinical Summary Avis Gale has completed 12 skilled PT visits following a lumbar surgery on 06/11/24. She had complications of spinal fluid leak following surgery and had two follow up surgeries for that as well. She is reporting ongoing weakness, decreased tolerance to standing, decreased tolerance for walking, and intermittent low back pain. She has been experiencing nausea, dizziness, and lightheadedness as well and will be having bloodwork with her PCP next week. She objectively demonstrates progress in her standing and walking tolerance, improved LE strength, and improved balance. Despite these improvements, she still has a high fall risk, decreased dynamic balance, decreased tolerance to walking and standing, and decreased right > left hip strength and decreased core strength. She tolerated 5 minutes 55 seconds of walking with a 3 wheel rollator and 11 minutes 30 seconds of standing exercises today before needing a seated rest break. She is unable to go to the grocery store, holiness, and perform heavier psychological assistant. She will continue to benefit from skilled PT to further address ongoing physical and functional limitations. Plan of Care Interventions Neuro Re-education,Patient/Caregiver Education, Therapeutic Activities,Therapeutic Exercise PT Services Indicated Yes Treatment Frequency and 3 times a week for 12 visits Duration These treatments will address the objective and functional deficits as defined above. The patient will be advanced safely and appropriately in order for the patient to progress towards his/her prior level of function. Additional exercises will be introduced and as well as a comprehensive home exercise program upon discharge, if needed, ?to ensure carryover of functional gains achieved in the clinic. This treatment plan has been reviewed and agreement upon by the patient.
== END 2024-10-02 23:59 | disposition home or self-care (01) ==
LOC: CHSPT 13:51
PROVIDERS: PCP Internal Medicine; Visit Provider Orthopaedic Surgery
DX: M54.50 Low back pain, unspecified (principal); Z98.1 Arthrodesis status
CPT/HCPCS: 97110; 97112; 97150; 97161; 97530; 97750

== ENCOUNTER 2025-03-12 13:51 | Outpatient (CLI) | payer MEDICARE, SELFPAY ==
--- OUTSIDE RECORDS SUMMARY | 2024-06-12 07:15 | XMS_ITS ---
Author Organization [facility] Address [address] [place] [address] Care Team Providers Care Press Manager Name Role Phone Des ARIAS, Priscilla Primary Care Provider Oj Mcwilliams Unavailable [phone] Encounters Encounter Location Date Provider Diagnosis [facility] - Inpatient [address] [place] [address] 06/12/2024 Oj Paiz PLAN OF TREATMENT No Information
--- OUTSIDE RECORDS SUMMARY | 2024-06-16 03:00 | XMS_ITS ---
Author Organization [facility] Address [address] [place] [address] Care Team Providers Care Product Safety Tester Name Role Phone Des ARIAS, Priscilla Primary Care Provider Oj Mcwilliams Unavailable [phone] Encounters Encounter Location Date Provider Diagnosis [facility] - Inpatient [address] [place] [address] 06/16/2024 Oj Paiz PLAN OF TREATMENT No Information
--- OUTSIDE RECORDS SUMMARY | 2024-06-21 04:10 | XMS_ITS ---
Author Organization [facility] Address [address] [facility] [address] [place] [address] Care Team Providers Care Bowling Ball Engraver Name Role Phone Des ARIAS, Priscilla Primary Care Provider Oj Mcwilliams Unavailable [phone] Encounters Encounter Location Date Provider Diagnosis [facility] [address] [facility] [address] [place] [address] 06/21/2024 Oj Paiz PLAN OF TREATMENT No Information
--- OUTSIDE RECORDS SUMMARY | 2024-06-21 05:10 | XMS_ITS ---
Author Organization [facility] Address [address] [place] [address] Care Team Providers Care Sales Planner Name Role Phone Des ARIAS, Priscilla Primary Care Provider Oj Mcwilliams Unavailable [phone] ALLERGIES Allergen (clinical drug ingredient) Drug/Non Drug Allergy documented on EMR Reaction Allergy Type Onset Date Status methylprednisolone Solu-Medrol increased weakness Drug Allergy Active Streptococcus pneumoniae type 1 capsular polysaccharide antigen / Streptococcus pneumoniae type 10A capsular polysaccharide antigen / Streptococcus pneumoniae type 11A capsular polysaccharide antigen / Streptococcus pneumoniae type 12F capsular polysaccharide antigen / Streptococcus pneumoniae type 14 capsular polysaccharide antigen / Streptococcus pneumoniae type 15B capsular polysaccharide antigen / Streptococcus pneumoniae type 17F capsular polysaccharide antigen / Streptococcus pneumoniae type 18C capsular polysaccharide antigen / Streptococcus pneumoniae type 19A capsular polysaccharide antigen / Streptococcus pneumoniae type 19F capsular polysaccharide antigen / Streptococcus pneumoniae type 2 capsular polysaccharide antigen / Streptococcus pneumoniae type 20 capsular polysaccharide antigen / Streptococcus pneumoniae type 22F capsular polysaccharide antigen / Streptococcus pneumoniae type 23F capsular polysaccharide antigen / Streptococcus pneumoniae type 3 capsular polysaccharide antigen / Streptococcus pneumoniae type 33F capsular polysaccharide antigen / Streptococcus pneumoniae type 4 capsular polysaccharide antigen / Streptococcus pneumoniae type 5 capsular polysaccharide antigen / Streptococcus pneumoniae type 6B capsular polysaccharide antigen / Streptococcus pneumoniae type 7F capsular polysaccharide antigen / Streptococcus pneumoniae type 8 capsular polysaccharide antigen / Streptococcus pneumoniae type 9N capsular polysaccharide antigen / Streptococcus pneumoniae type 9V capsular polysaccharide antigen Pneumovax 23 throat and neck swelling Drug Allergy Active RESULTS Component Value Reference Range Notes X ray : Lumbar Spine 3 views , AP, Lateral, Spot Reviewed date:06/21/2024 12:04:13 PM Interpretation:[id number] Performing Lab: Notes/Report: 1057 REASON FOR VISIT post op MEDICATIONS Medication SIG (Take, Route, Frequency, Duration) Notes Start Date End Date Status traMADol HCl Active Blanca-Colace Active HYDROcodone-Acetamino phen 7.5-325 MG 1 tablet as needed Orally every 4-6 hrs for 7 days 06/10/2024 Not-Taking Cephalexin 500 MG 1 capsule Orally four times daily for 5 days 06/21/2024 Active Lyrica 150 Mg BID Active Fluoxetine Active Acetaminophen Tylenol arthritis dupliate entry Not-Taking Levothyroxine Sodium Active Omeprazole Active Meloxicam Not-Taking Tylenol arthritis Not-Taking traZODone HCl Active VITAL SIGNS BMI 34.94 kg/m2 06/21/2024 Height 65 in 06/21/2024 Temperature 98.4 degrees Fahrenheit 06/21/19 25 Weight 210 lbs 06/21/2024 Encounters Encounter Location Date Provider Diagnosis [facility] [address] [place] [address] 06/21/2024 Oj Paiz Arthrodesis status Z98.1 ; Orthopedic aftercare Z47.89 ; Seroma of musculoskeletal structure after musculoskeletal system procedure M96.842 and Other low back pain M54.59 ASSESSMENTS Encounter Date Diagnosis Assessment Notes Treatment Notes Treatment Clinical Notes Section Notes 06/21/2024 Arthrodesis status (ICD-10 - Z98.1) <b>IMPRESSION:</b > Status post lumbar decompressive laminectomy and fusion L3-4, extension of hardware L3 to S1, exploration of fusion of L4-5. 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 Persisting wound seroma. <b>PLAN:</b> It is my recommendation the patient continue on Keflex 500 mg b.i.d. She will follow up in 5 days as scheduled where her rita will be removed and cultures should be back. She will continue with dressing changes over the wound site. If she has any other problems she will call the office. INTERMEDIATE/cp 06/21/2024 Orthopedic aftercare (ICD-10 - Z47.89) <b>IMPRESSION:</b > Status post lumbar decompressive laminectomy and fusion L3-4, extension of hardware L3 to S1, exploration of fusion of L4-5. 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 Persisting wound seroma. <b>PLAN:</b> It is my recommendation the patient continue on Keflex 500 mg b.i.d. She will follow up in 5 days as scheduled where her rita will be removed and cultures should be back. She will continue with dressing changes over the wound site. If she has any other problems she will call the office. INTERMEDIATE/cp 06/21/2024 Seroma of musculoskeletal structure after musculoskeletal system procedure (ICD-10 - M96.842) <b>IMPRESSION:</b > Status post lumbar decompressive laminectomy and fusion L3-4, extension of hardware L3 to S1, exploration of fusion of L4-5. 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 Persisting wound seroma. <b>PLAN:</b> It is my recommendation the patient continue on Keflex 500 mg b.i.d. She will follow up in 5 days as scheduled where her rita will be removed and cultures should be back. She will continue with dressing changes over the wound site. If she has any other problems she will call the office. INTERMEDIATE/cp 06/21/2024 Other low back pain (ICD-10 - M54.59) <b>IMPRESSION:</b > Status post lumbar decompressive laminectomy and fusion L3-4, extension of hardware L3 to S1, exploration of fusion of L4-5. 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 Persisting wound seroma. <b>PLAN:</b> It is my recommendation the patient continue on Keflex 500 mg b.i.d. She will follow up in 5 days as scheduled where her rita will be removed and cultures should be back. She will continue with dressing changes over the wound site. If she has any other problems she will call the office. INTERMEDIATE/cp PLAN OF TREATMENT Medication Medication Name Sig Start Date Stop Date Notes Cephalexin 500 MG 1 capsule Orally fou r times daily for 5 days 06/21/2024 Progress Notes * Examination Category Sub-Category Detail Notes Category Not es Plain X-ray Imaging Studies LUMBAR SPINE X-RAYS: Three view x-rays through th e lumbar spine obtained today reveal evidence of satisfactory position of spinal hardware from L3 to S1 with interbody implants in good position. There is scoliotic deformity to the left is noted above the L3 screws. No evidence of screw dislodgement, implant failure or vertebral fracture. Disc degeneration at levels above the fusion is noted General Examination GENERAL: On physical examination today, her back incision is clean and dry. In palpating the lower part of the wound there may be mild fluctuance. The wound is prepped and draped and 60 mL of serosanguineous fluid is removed from the wound. There is no increase in headache or any other complaints. The fluid is cultured History and Physical Notes * HPI (History of Present Illness) Category Sub-Category Detail Notes Category Not es Lower back Avis Gale presents for evaluation today, 06/21/2024. She is 10 days status post lumbar decompressive laminectomies and fusion L3-4 with exploration of fusion L4-5 and spinal hardware L3 to S1. Following the surgical procedure she had complained of nausea and headache. She underwent revision surgery where her wound was explored. A small dural rent was repaired. Her wound drainage remained elevated. She was returned to surgery where a prior dural graft was reinforced, but in the last exploration of the wound there was no evidence of CSF drainage. Her wound was cleaned. She had remained on antibiotics, but her cultures from her were wound were negative for growth. She presents today for reevaluation with her daughter. She reports she is doing better. She is at a alf facility. She is ambulating for increasing distances. She presently uses tramadol and Tylenol to moderate complaints
--- OUTSIDE RECORDS SUMMARY | 2024-06-24 06:00 | XMS_ITS ---
Author Organization [facility] Address [address] [facility] [address] [place] [address] Care Team Providers Care Handling Tech Name Role Phone Des ARIAS, Priscilla Primary Care Provider Oj Mcwilliams Unavailable [phone] Encounters Encounter Location Date Provider Diagnosis [facility] [address] [facility] [address] [place] [address] 06/24/2024 Oj Paiz PLAN OF TREATMENT No Information
--- OUTSIDE RECORDS SUMMARY | 2024-06-24 06:00 | XMS_ITS ---
Author Organization [facility] Address [address] [place] [address] Care Team Providers Care Building Custodial Supervisor Name Role Phone Des ARIAS, Priscilla Primary Care Provider Oj Mcwilliams Unavailable [phone] ALLERGIES Allergen (clinical drug ingredient) Drug/Non Drug [...] throat and neck swelling Drug Allergy Active REASON FOR VISIT Post op MEDICATIONS Medication SIG (Take, Route, Frequency, Duration) Notes Start Date End Date Status Meloxicam Not-Taking HYDROcodone-Acetamino phen 7.5-325 MG 1 tablet as needed Orally every 4-6 hrs for 7 days 06/10/2024 Not-Taking Tylenol arthritis Not-Taking Acetaminophen Tylenol arthritis dupliate entry Not-Taking Cephalexin 500 MG 1 capsule Orally four times daily for 5 days 06/21/2024 Active Lyrica 150 Mg BID Active traZODone HCl Active Levothyroxine Sodium Active Omeprazole Active Fluoxetine Active Blanca-Colace Active traMADol HCl Active VITAL SIGNS BMI 34.94 kg/m2 06/24/2024 Height 65 in 06/24/2024 Temperature 98.1 degrees Fahrenheit 06/24/19 25 Weight 210 lbs 06/24/2024 Encounters Encounter Location Date Provider Diagnosis [facility] [address] [place] [address] 06/24/2024 Oj Paiz Orthopedic aftercare Z47.89 and Arthrodesis status Z98.1 ASSESSMENTS Encounter Date Diagnosis Assessment Notes Treatment Notes Treatment Clinical Notes Section Notes 06/24/2024 Orthopedic aftercare (ICD-10 - Z47.89) <b>IMPRESSION:</b > Status post lumbar decompressive laminectomy and fusion. Repair of dural rent with dural fascial graft application. <b>PLAN:</b> It is my recommendation the patient continue on Keflex and continue with a dressing on the lower portion of the wound. We will see her back in the office in 3 days for further evaluation. Given the patient's lack of nausea, headache and improved general well-being, it is my recommendation the patient continue on a course of conservative measures. INTERMEDIATE/cp 06/24/2024 Arthrodesis status (ICD-10 - Z98.1) <b>IMPRESSION:</b > Status post lumbar decompressive laminectomy and fusion. Repair of dural rent with dural fascial graft application. <b>PLAN:</b> It is my recommendation the patient continue on Keflex and continue with a dressing on the lower portion of the wound. We will see her back in the office in 3 days for further evaluation. Given the patient's lack of nausea, headache and improved general well-being, it is my recommendation the patient continue on a course of conservative measures. INTERMEDIATE/cp PLAN OF TREATMENT No Information Progress Notes * Examination Category Sub-Category Detail Notes Category Not es Plain X-ray Imaging Studies No x-rays are obtained today General Examination GENERAL: On physical examination today, her back incision is clean and dry. Her rita were removed. Steri-Strips are applied. There is no drainage from her wound. The wound is palpated and there is mild fluctuance involving the lower portion of the wound. The wound is prepped and draped and I aspirated approximately 55 mL of serosanguineous fluid from the wound. This took two needle aspirations in order to obtain. There is no purulence and no foul smell History and Physical Notes * HPI (History of Present Illness) Category Sub-Category Detail Notes Category Not es Lower back Avsi Gale presents for reevaluation today, 06/24/2024. She is 13 days status post lumbar decompressive laminectomies and fusion L3-4 with exploration of fusion L4-5 and extension of hardware L3 to S1. 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 She has had persisting wound seroma, but prior explorations of the wound revealed no evidence of drainage from the prior dural repair site. She presents today with her daughter. She states she has been doing very well. She has been walking greater distances. She can walk 200 feet. She states her pain is better controlled. She continues on tramadol and Tylenol and uses Lyrica. Her prior cultures from 06/21/2024 revealed no growth, no organisms
--- OUTSIDE RECORDS SUMMARY | 2024-06-27 06:00 | XMS_ITS ---
Author Organization [facility] Address [address] [place] [address] Care Team Providers Care Director Ship Name Role Phone Des ARIAS, Priscilla Primary Care Provider Oj Mcwilliams Unavailable [phone] ALLERGIES Allergen (clinical drug ingredient) Drug/Non Drug [...] neck swelling Drug Allergy Active REASON FOR REFERRAL Reason DIAGNOSES: s/p L3-4 LDL, L3-4 TLIF, s/p I and D X 2 3 times per week for 3 weeks eval and treat, exercise, modalities per therapist's discretion; HEP Referral Organization [facility] Referring Provider First Name Oj Referring Provider Last Name Izabel Referring Provider Speciality Orthopedic Surgery Referred Provider Specialty Physical The rapy Referral Priority Routine REASON FOR VISIT wound check, post op MEDICATIONS Medication SIG (Take, Route, Frequency, Duration) Notes Start Date End Date Status Tylenol arthritis Not-Taking Cephalexin 500 MG 1 capsule Orally four times daily for 5 days 06/21/2024 Active HYDROcodone-Acetamino phen 7.5-325 MG 1 tablet as needed Orally every 4-6 hrs for 7 days 06/10/2024 Not-Taking Acetaminophen Tylenol arthritis dupliate entry Not-Taking Meloxicam Not-Taking Levothyroxine Sodium Active Omeprazole Active Fluoxetine Active Lyrica 150 Mg BID Active traZODone HCl Active traMADol HCl Active Blanca-Colace Active PROBLEMS Problem Type ICD Code Onset Dates Problem Status W/U Status Risk SNOMED Code Notes Problem Osteoarthritis of right knee (M17.11) Active confirmed Osteoarthritis of knee ([id number]) VITAL SIGNS BMI 34.94 kg/m2 06/27/2024 Height 65 in 06/27/2024 Temperature 98.1 degrees Fahrenheit 06/27/19 25 Weight 210 lbs 06/27/2024 Encounters Encounter Location Date Provider Diagnosis [facility] [address] [facility] [address] [place] [address] 06/27/2024 Oj Paiz Orthopedic aftercare Z47.89 ; Arthrodesis status Z98.1 ; Osteoarthritis of right knee M17.11 ; Knee pain, right M25.561 and Seroma of musculoskeletal structure after musculoskeletal system procedure M96.842 ASSESSMENTS Encounter Date Diagnosis Assessment Notes Treatment Notes Treatment Clinical Notes Section Notes 06/27/2024 Orthopedic aftercare (ICD-10 - Z47.89) <b>IMPRESSION:</b > Status post lumbar decompressive laminectomy and fusion. Repair of dural rent with dural fascial graft application. Wound seroma. Right knee arthritis. Right knee pain. <b>PLAN:</b> It is my recommendation the patient continue in physical therapy, ambulate as much as possible. She will finish her Keflex. I recommend she see Dr. Yañez or Dr. Gamble pertaining to her right knee degenerative joint disease and pain. We will see her back in the office in 2 to 3 weeks. HALFWAY/ 06/27/2024 Arthrodesis status (ICD-10 - Z98.1) <b>IMPRESSION:</b > Status post lumbar decompressive laminectomy and fusion. Repair of dural rent with dural fascial graft application. Wound seroma. Right knee arthritis. Right knee pain. <b>PLAN:</b> It is my recommendation the patient continue in physical therapy, ambulate as much as possible. She will finish her Keflex. I recommend she see Dr. Yañez or Dr. Gamble pertaining to her right knee degenerative joint disease and pain. We will see her back in the office in 2 to 3 weeks. HALFWAY/ 06/27/2024 Osteoarthritis of right knee (ICD-10 - M17.11) <b>IMPRESSION:</b > Status post lumbar decompressive laminectomy and fusion. Repair of dural rent with dural fascial graft application. Wound seroma. Right knee arthritis. Right knee pain. <b>PLAN:</b> It is my recommendation the patient continue in physical therapy, ambulate as much as possible. She will finish her Keflex. I recommend she see Dr. Yañez or Dr. Gamble pertaining to her right knee degenerative joint disease and pain. We will see her back in the office in 2 to 3 weeks. HALFWAY/ 06/27/2024 Knee pain, right (ICD-10 - M25.561) <b>IMPRESSION:</b > Status post lumbar decompressive laminectomy and fusion. Repair of dural rent with dural fascial graft application. Wound seroma. Right knee arthritis. Right knee pain. <b>PLAN:</b> It is my recommendation the patient continue in physical therapy, ambulate as much as possible. She will finish her Keflex. I recommend she see Dr. Yañez or Dr. Gamble pertaining to her right knee degenerative joint disease and pain. We will see her back in the office in 2 to 3 weeks. HALFWAY/ 06/27/2024 Seroma of musculoskeletal structure after musculoskeletal system procedure (ICD-10 - M96.842) <b>IMPRESSION:</b > Status post lumbar decompressive laminectomy and fusion. Repair of dural rent with dural fascial graft application. Wound seroma. Right knee arthritis. Right knee pain. <b>PLAN:</b> It is my recommendation the patient continue in physical therapy, ambulate as much as possible. She will finish her Keflex. I recommend she see Dr. Yañez or Dr. Gamble pertaining to her right knee degenerative joint disease and pain. We will see her back in the office in 2 to 3 weeks. HALFWAY/cp PLAN OF TREATMENT Referrals Referral Date Details DIAGNOSES: s/p L3-4 LDL, L3-4 TLIF, s/p I and D X 2 3 times per week for 3 weeks eval and treat, exercise, modalities per therapist's discretion; HEP Progress Notes * Examination Category Sub-Category Detail Notes Category Not es General Examination GENERAL: On physical examination today, her back incision is clean and dry. No erythema. No induration. The wound is palpated and I do not feel any evidence of fluctuance of the soft tissue. The tissue margins are clean and dry with no significant erythema or induration. No tenderness to palpation. The wound is prepped with Betadine and alcohol. It is then aspirated in the lower portion of the wound at two separate sites and only 30 mL of serosanguineous fluid is removed in total NEUROLOGIC: Lower extremity neur ologic examination reveals 5+ motor strength, symmetric reflexes and intact sensation MUSCULOSKELETAL: ROM of the lumbar sp ine reveals forward flexion to 95 degrees, extension to 35 degrees, side-bending to 45 degrees History and Physical Notes * HPI (History of Present Illness) Category Sub-Category Detail Notes Category Not es Lower back Avis Gale presents for reevaluation today, 06/27/2024. She is 16 days status post lumbar decompressive laminectomies and fusion L3-4 with exploration of fusion L4-5 and extension of hardware L3 to S1, exploration of wound and repair of a small dural rent with application of a dural patch over incompetent dura. The patient reports today she is doing better. She is walking for greater distances. She can walk 500 feet in long term. She denies any headaches, fevers, chills or nausea. She reports with increased ambulation her right knee is bothering her. She has had a long-standing history of right knee arthritis. She reports more physical activity is resulting in increasing right knee pain, aggravation of her arthritis Consultation Request Notes Referral Date Referring Provider Referred Provider Not es 06/27/2024 Oj Paiz , DIAGNOSES: s /p L3-4 LDL, L3-4 TLIF, s/p I and D X 2 3 times per week for 3 weeks eval and treat, exercise, modalities per therapist's discretion; HEP
--- OUTSIDE RECORDS SUMMARY | 2024-07-15 05:30 | XMS_ITS ---
Author Organization [facility] Address [address] [place] [address] Care Team Providers Care Cnp Name Role Phone Des ARIAS, Priscilla Primary Care Provider Unavaila Oj Campos Unavailable [phone] Bravo Gamble Unavailable [phone] REASON FOR VISIT R. KNEE Encounters Encounter Location Date Provider Diagnosis . [facility] [place] [address] [place] [address] 07/15/2024 Bravo Gamble PLAN OF TREATMENT No Information
--- OUTSIDE RECORDS SUMMARY | 2024-07-15 07:00 | XMS_ITS ---
Author Organization [facility] Address [address] [place] [address] Care Team Providers Care Brusher Tender Name Role Phone Des ARIAS, Priscilla Primary Care Provider Oj Mcwilliams Unavailable [phone] ALLERGIES Allergen (clinical drug ingredient) Drug/Non Drug [...] ray : Lumbar Spine 3 views , Lateral, Flexion, Extension Reviewed date:07/15/2024 01:28:25 PM Interpretation:1241 Performing Lab: Notes/Report: 1241 REASON FOR REFERRAL Reason DIAGNOSES: s/p L3-4 LDL, L3-4 TLIF, L3-S1 instr, I and D x 2 3 times per week for 3 weeks eval and treat, exercise, modalities per therapist's discretion; HEP Referral Organization [facility] Referring Provider First Name Oj Referring Provider Last Name Izabel Referring Provider Speciality Orthopedic Surgery Referred Provider Specialty Physical The rapy Referral Priority Routine REASON FOR VISIT Lumbar MEDICATIONS Medication SIG (Take, Route, Frequency, Duration) Notes Start Date End Date Status Tylenol arthritis Active Cephalexin 500 MG 1 capsule Orally four times daily for 5 days 06/21/2024 Not-Taking Meloxicam Not-Taking Acetaminophen Tylenol arthritis dupliate entry Not-Taking HYDROcodone-Acetamino phen 7.5-325 MG 1 tablet as needed Orally every 4-6 hrs for 7 days 06/10/2024 Not-Taking Fluoxetine Active Omeprazole Active Lyrica 75 Mg PM Active Levothyroxine Sodium Active traZODone HCl Active traMADol HCl Active Blanca-Colace Active VITAL SIGNS BMI 34.94 kg/m2 07/15/2024 Height 65 in 07/15/2024 Weight 210 lbs 07/15/2024 Encounters Encounter Location Date Provider Diagnosis [facility] [address] [address] 07/15/2024 Oj Paiz Arthrodesis status Z98.1 ; Orthopedic aftercare Z47.89 and Other low back pain M54.59 ASSESSMENTS Encounter Date Diagnosis Assessment Notes Treatment Notes Treatment Clinical Notes Section Notes 07/15/2024 Arthrodesis status (ICD-10 - Z98.1) <b>IMPRESSION:</b > Status post lumbar decompressive laminectomy and fusion. Status post dural rent repair. <b>PLAN:</b> It is my recommendation the patient continue on tramadol and Tylenol. She will diminish her Lyrica 50 mg daily. She will walk as much as possible, continue with her home stretching program. We will see her back in the office in 6 weeks. RESIDENTIAL/cp 07/15/2024 Orthopedic aftercare (ICD-10 - Z47.89) <b>IMPRESSION:</b > Status post lumbar decompressive laminectomy and fusion. Status post dural rent repair. <b>PLAN:</b> It is my recommendation the patient continue on tramadol and Tylenol. She will diminish her Lyrica 50 mg daily. She will walk as much as possible, continue with her home stretching program. We will see her back in the office in 6 weeks. RESIDENTIAL/cp 07/15/2024 Other low back pain (ICD-10 - M54.59) <b>IMPRESSION:</b > Status post lumbar decompressive laminectomy and fusion. Status post dural rent repair. <b>PLAN:</b> It is my recommendation the patient continue on tramadol and Tylenol. She will diminish her Lyrica 50 mg daily. She will walk as much as possible, continue with her home stretching program. We will see her back in the office in 6 weeks. RESIDENTIAL/cp PLAN OF TREATMENT Referrals Referral Date Details DIAGNOSES: s/p L3-4 LDL, L3-4 TLIF, L3-S1 instr, I and D x 2 3 times per week for 3 weeks eval and treat, exercise, modalities per therapist's discretion; HEP Progress Notes * Examination Category Sub-Category Detail Notes Category Not es Plain X-ray Imaging Studies LUMBAR SPINE X-RAYS: Three view x-rays through th e lumbar spine reveal evidence of fusion with instrumentation from L3 to S1. The fusion appears to be progressing satisfactorily. There is mild curvature to the left. No evidence of implant failure or lucency. The films are discussed with the patient General Examination GENERAL: On physical examination today, she moves about the room without difficulty. She does not walk with a list or limp NECK: Cervical exam reveal s no tenderness to palpation. No spasm NEUROLOGIC: Lower extremity neur ologic examination reveals 5+ motor strength, symmetric reflexes and intact sensation MUSCULOSKELETAL: Thoracic exam reveal s no tenderness to palpation. No spasm. Lumbar exam reveals a well-healed back incision, nontender to the touch. No erythema. No swelling. No fluctuance. ROM of the lumbar spine reveals forward flexion to 85 degrees, extension to 35 degrees, side-bending to 45 degrees History and Physical Notes * HPI (History of Present Illness) Category Sub-Category Detail Notes Category Not es Lower back Avis Gale pre sents for reevaluation today, 07/15/2024. She is status post lumbar decompressive laminectomies and fusion, prior dural repair. The patient reports at the present time she is doing better. She is walking much better. She denies any fevers, chills or wound swelling. She has been attending physical therapy through [facility]. She has been stretching and performing yoga Consultation Request Notes Referral Date Referring Provider Referred Provider Not es 07/15/2024 Oj Paiz , DIAGNOSES: s /p L3-4 LDL, L3-4 TLIF, L3-S1 instr, I and D x 2 3 times per week for 3 weeks eval and treat, exercise, modalities per therapist's discretion; HEP
--- OUTSIDE RECORDS SUMMARY | 2024-08-26 06:30 | XMS_ITS ---
Author Organization [facility] Address [address] [facility] [address] [place] [address] Care Team Providers Care Heater Helper Forge Name Role Phone Des ARIAS, Priscilla Primary Care Provider Oj Mcwilliams Unavailable [phone] Encounters Encounter Location Date Provider Diagnosis [facility] [address] [facility] [address] [place] [address] 08/26/2024 Oj Paiz PLAN OF TREATMENT No Information
--- NOTE | ~2025-03-12 | MM_ITS ---
EXAMINATION: MM screening adelita BI w sue HISTORY: Screening TECHNIQUE: Craniocaudal and mediolateral oblique 3-D tomosynthesis images were obtained and synthetic 2-D images were generated. CAD analysis was submitted and interpreted. COMPARISON: Comparison to multiple prior studies sequentially, with oldest reviewed study dated , 04/12/2010 BREAST PARENCHYMAL COMPOSITION: There are scattered areas of fibroglandular density. FINDINGS: There is no evidence of suspicious mass, calcification, or architectural distortion to suggest malignancy in either breast. IMPRESSION: 1. No mammographic evidence of malignancy. 2. Recommend routine screening mammography in one year. BI-RADS Category 1: Negative Reviewed, dictated and finalized at location B.
--- NOTE | ~2025-03-12 | DEXA_ITS ---
Bone Density Report Name: ALYSSA SALOMON Age: 74 Sex: Female Ethnicity: White Date of : 1950 Indication: postmenopausal; screening for osteoporosis; parental hip fracture; prior fracture; hysterectomy; Referring Provider: RORO PATRICIO Study: Bone densitometry was performed. Exam Date: March 12, 2025 Accession number: [id number] Bone Density: Region BMD T-score Z-score Classification Femoral Neck (Left) 0.642 -1.9 0.2 Osteopenia Total Hip (Left) 0.792 -1.2 0.5 Osteopenia Femoral Neck (Right) 0.657 -1.7 0.3 Osteopenia Total Hip (Right) 0.861 -0.7 1.1 Normal Femoral Neck Mean 0.650 -1.8 0.2 Osteopenia Total Hip Mean 0.826 -0.9 0.8 Normal World Health Organization criteria for BMD impression classify patients as: Normal (T-score at or above -1.0), Osteopenia (T-score between -1.0 and -2.5), or Osteoporosis (T-score at or below -2.5). 10-year Fracture Risk(1): Major Osteoporotic Fracture 36% Hip Fracture 20% Reported Risk Factors: [place] (), Neck BMD=0.642, BMI=31.4, previous fracture, parental fracture, alcohol use (1) FRAX(R) Version 3.08. Fracture probability calculated for an untreated patient. Fracture probability may be lower if the patient has received treatment. Clinical Information Provided by Patient: Has had a low trauma fracture Parent has had a hip fracture Has 3 or more alcoholic drinks per day Has used the following medications: Vitamin D Has the following medical conditions: Hysterectomy Patient maximum height was 66 Menopause Age: 45 No regular weight bearing exercise Does not regularly consume dairy products Drinks caffeinated beverages Onset of menses at age 10 Number of children 4 Impression: The patient has low bone mass, based on the Left Femoral Neck T-score. The patient has risk factors, including: parental hip fracture, excessive alcohol use, previous fracture. Discussion: BONE DENSITY IS LOW AT ONE OR MORE SKELETAL SITES. This patient's lowest T-score is low at one or more skeletal sites. It meets the World Health Organization's (WHO) criteria for ?low bone mass? (T-score between -1.0 and -2.5). The patient's 10-year risk of fracture as calculated by FRAX is less than the threshold where pharmacological therapy is recommended by the National Osteoporosis Foundation (NOF). However, all treatment decisions require clinical judgment and consideration of individual patient factors, including patient preferences, comorbidities, previous drug use, risk factors not captured in the FRAX model (e.g., frailty, falls, vitamin D deficiency, increased bone turnover, interval significant decline in bone density) and possible under or overestimation of fracture risk by FRAX. The patient should follow a healthful lifestyle (good nutrition with adequate calcium and vitamin D, and appropriate weight-bearing exercise). Follow-Up: Consider repeating this study in 2 to 3 years to reassess this patient's status, or sooner if there is some new clinical indication. Reported by: JAROD on 03/12/2025 2:41:00 PM. Reviewed, dictated and finalized at location A.
--- OUTSIDE RECORDS SUMMARY | 2025-03-12 18:09 | XMS_ITS | Patient Health Record ---
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 Teacher Name Role Phone Priscilla Nunes MD Primary Care Provider Unavaila Oj Campos Unavailable [phone] Bina Huerta Unavailable [phone] Bravo Gamble Unavailable [phone] ALLERGIES Allergen (clinical drug ingredient) Drug/Non Drug [...] Active RESULTS Component Value Reference Range Notes DEXA Reviewed date:07/09/2024 10:18:57 AM Interpretation:medicare advantage Performing Lab: Notes/Report: medicare advantage X ray : Lumbar spine 5 views , AP, Lateral, Spot, Flexion and Extension Reviewed date:04/04/2024 10:16:02 AM Interpretation:932 Performing Lab: Notes/Report: 932 CT Lumbar Spine with Sagitta l and Coronal Reconstruction Reviewed date:07/09/2024 10:19:03 AM Interpretation:no auth med advantage Performing Lab: Notes/Report: no auth med advantage X ray : Lumbar Spine 3 views , AP, Lateral, Spot Reviewed date:06/21/2024 12:04:13 PM Interpretation:1057 Performing Lab: Notes/Report: 1057 X ray : Lumbar Spine 3 views , Lateral, Flexion, Extension Reviewed date:07/15/2024 01:28:25 PM Interpretation:1241 Performing Lab: Notes/Report: 1241 REASON FOR REFERRAL Reason DIAGNOSES: s/p L3-4 LDL, L3-4 TLIF, s/p I and D X 2 3 times per week for 3 weeks eval and treat, exercise, modalities per therapist's discretion; [facility] Referral Organization [facility], Referring Provider First Name Brainerd Referring Provider Last Name [facility] Referring Provider Speciality Orthopedic Surgery Referred Provider Specialty Physical [facility] Referral Priority Routine Reason DIAGNOSES: s/p L3-4 LDL, L3-4 TLIF, L3-S1 instr, I and D x 2 3 times per week for 3 weeks eval and treat, exercise, modalities per therapist's discretion; [facility] Referral Organization [facility], Referring Provider First Name Oj Referring Provider Last Name [facility] Referring Provider Speciality Orthopedic Surgery Referred Provider Specialty Physical [facility] Referral Priority Routine MEDICATIONS Medication SIG (Take, Route, Frequency, Duration) Notes Start Date End Date Status Fluoxetine Active Omeprazole Active Tylenol arthritis Active Cephalexin 500 MG 1 capsule Orally four times daily for 5 days 06/21/2024 Not-Taking Meloxicam Not-Taking Acetaminophen Tylenol arthritis dupliate entry Not-Taking HYDROcodone-Acetamino phen 7.5-325 MG 1 tablet as needed Orally every 4-6 hrs for 7 days 06/10/2024 Not-Taking traMADol HCl Active Lyrica 75 Mg PM Active Blanca-Colace Active Levothyroxine Sodium Active traZODone HCl Active PROBLEMS Problem Type ICD Code Onset Dates Problem Status W/U Status Risk SNOMED Code Notes Problem Degenerative spondylolisthesis (M43.10) Active confirmed Degenerative spondylolisthesis (0945847) Problem Spondylolisthesis (M43.10) Active confirmed Spondylolisthes is (021324116) Problem DDD (degenerative disc disease), lumbar (M51.36) Active confirmed Degenerative disc disease (49596459) 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 confirmed Lumbosacral spondylosis without myelopathy (58472099) Problem Osteoporosis (M81.0) Active confirmed Osteoporosis (12361182) Problem Osteopenia (M85.80) Active confirmed Os teopenia (320342519) Problem Scoliosis (M41.9) Active confirmed Scol iosis (496655183) Problem HNP (herniated nucleus pulposus), lumbar (M51.26) Active confirmed Displacement of lumbar intervertebral disc without myelopathy (01378217) Problem Osteoarthritis of right knee (M17.11) Active confirmed Osteoart hritis of knee (261379287) VITAL SIGNS Temperature 98.1 degrees Fahrenheit 06/27/2024 Height 65 in 07/15/2024 Weight 210 lbs 07/15/2024 BMI 34.94 kg/m2 07/15/2024 PROCEDURES Procedure Date Ordered Date Performed Result Body Sit e lumbar fusion 04/04/2024 06/11/2024 [facility] med advantage Encounters Encounter Location Date Provider Diagnosis [facility] [address] [facility] [address] [address] 07/15/2024 Bravo Gamble [facility] [address] [facility] [address] [place] [address] 06/21/2024 Oj Paiz [facility] [address] [facility] [address] [place] [address] 06/24/2024 Oj Paiz [facility] [address] [facility] [address] [place] [address] 06/21/2024 Oj Paiz Arthrodesis status Z98.1 ; Orthopedic aftercare Z47.89 ; Seroma of musculoskeletal structure after musculoskeletal system procedure M96.842 and Other low back pain M54.59 [facility] [address] [facility] [address] [place] [address] 06/24/2024 Oj Paiz Orthopedic aftercare Z47.89 and Arthrodesis status Z98.1 [facility] [address] [address] 06/27/2024 Oj Paiz Orthopedic aftercare Z47.89 ; Arthrodesis status Z98.1 ; Osteoarthritis of right knee M17.11 ; Knee pain, right M25.561 and Seroma of musculoskeletal structure after musculoskeletal system procedure M96.842 [facility] [address] [address] 07/15/2024 Oj Paiz Arthrodesis status Z98.1 ; Orthopedic aftercare Z47.89 and Other low back pain M54.59 [facility] [address] [address] 08/26/2024 Oj Paiz [facility] [address] [address] 04/04/2024 Oj Paiz Lumbar stenosis with neurogenic claudication M48.062 ; Other specified disorders of bone density and structure, multiple sites M85.89 ; Scoliosis M41.9 ; Facet degeneration of lumbar region M47.816 ; Disc Degeneration, Lumbar Region with Leg Pain M51.361 ; Lumbar radiculopathy M54.16 ; HNP (herniated nucleus pulposus), lumbar M51.26 and Other low back pain M54.59 [facility] [address] [place] [address] 06/11/2024 Oj Paiz [facility] [address] [place] [address] 06/11/2024 Bina Huerta [facility] - [facility]patient [address] [place] [address] 06/12/2024 Oj Paiz [facility] - [facility]patient [address] [place] [address] 06/16/2024 Oj Paiz [facility]patient [address] [place] [address] 06/12/2024 Bina Huerta [facility] [address] [facility] [address] [place] [address] 04/05/2024 Oj Paiz [facility] [address] [facility] [address] [place] [address] 05/23/2024 Oj Paiz [facility] [address] [facility] [address] [place] [address] 06/07/2024 Oj aPiz ASSESSMENTS Encounter Date Diagnosis Assessment Notes Treatment [...] other problems she will call the office. [facility] 06/21/2024 Orthopedic aftercare (ICD-10 - Z47.89) <b>IMPRESSION:</b [...] other problems she will call the office. [facility] 06/24/2024 Orthopedic aftercare (ICD-10 - Z47.89) <b>IMPRESSION:</b [...] continue on a course of conservative measures. [facility] 06/27/2024 Orthopedic aftercare (ICD-10 - Z47.89) <b>IMPRESSION:</b [...] the office in 2 to 3 weeks. [facility] 06/27/2024 Arthrodesis status (ICD-10 - Z98.1) <b>IMPRESSION:</b [...] the office in 2 to 3 weeks. [facility] 07/15/2024 Arthrodesis status (ICD-10 - Z98.1) <b>IMPRESSION:</b [...] back in the office in 6 weeks. [facility] 04/04/2024 Lumbar stenosis with neurogenic claudication (ICD-10 - M48.062) <b>IMPRESSION:</b > Back pain. HNP. Radiculopathy. Lumbar spinal stenosis with neurogenic claudication. Disc degeneration. Facet degenerative joint disease. Prior lumbar fusion. Scoliosis. Osteopenia. <b>PLAN:</b> It is my recommendation the patient undergo a DEXA scan to evaluate bone quality. [facility] <b>ADDENDUM:</b> DEXA scan performed on 04/04/2024 reveals evidence of osteopenia involving the hips and forearms CT study through the lumbar spine performed on 04/04/2024 reveals evidence of fusion of L4-5 and L5-S1. Mild thoracolumbar scoliosis L1-2, L2-3 and L3-4. Foraminal narrowing L1-2 and L2-3. Severe stenosis L3-4 and severe foraminal stenosis L3-4. <b>DISCUSSION:</b > It is my opinion the patient is a candidate for surgical intervention. It is my opinion the surgical procedure of choice would that of performing lumbar decompressive laminectomy at L3-4, removal of hardware L4 to S1, exploration of fusion L4 to S1, TLIF procedure at L3-4 with extension of hardware from L4 to S1. I explained to the patient there is no perfect surgical option to address her complaints. She does have evidence of advanced degeneration at L1-2 and L2-3, which may be an issue in the future. Due to her complaints and neurologic deficits, it is my opinion it would be very important to address the stenosis and instability at the L3-4 level. The risks and benefits of the surgical procedure were discussed. The risks include, but are not limited to, infection, bleeding, , neurovascular injury, persisting back and leg pain, progression of disc degeneration, perineural fibrosis, arachnoiditis, adjacent segment disease and dural tear. Since this a redo procedure, she is at higher risk for dural rent, nerve injury due to alteration of anatomy. The patient states she understands the risks and benefits and wishes to proceed forward with surgical intervention. She will need to undergo cardiac clearance prior to the surgical procedure. She will be scheduled in the near future. She will continue on her present medications, but stop all anti-inflammatory medication and blood thinners a week prior to surgery. [facility] 04/04/2024 Other specified disorders of bone density and structure, multiple sites (ICD-10 - M85.89) <b>IMPRESSION:</b > Back pain. HNP. Radiculopathy. Lumbar spinal stenosis with neurogenic claudication. Disc degeneration. Facet degenerative joint disease. Prior lumbar fusion. Scoliosis. Osteopenia. <b>PLAN:</b> It is my recommendation the patient undergo a DEXA scan to evaluate bone quality. [facility] <b>ADDENDUM:</b> DEXA scan performed on 04/04/2024 reveals evidence of osteopenia involving the hips and forearms CT study through the lumbar spine performed on 04/04/2024 reveals evidence of fusion of L4-5 and L5-S1. Mild thoracolumbar scoliosis L1-2, L2-3 and L3-4. Foraminal narrowing L1-2 and L2-3. Severe stenosis L3-4 and severe foraminal stenosis L3-4. <b>DISCUSSION:</b > It is my opinion the patient is a candidate for surgical intervention. It is my opinion the surgical procedure of choice would that of performing lumbar decompressive laminectomy at L3-4, removal of hardware L4 to S1, exploration of fusion L4 to S1, TLIF procedure at L3-4 with extension of hardware from L4 to S1. I explained to the patient there is no perfect surgical option to address her complaints. She does have evidence of advanced degeneration at L1-2 and L2-3, which may be an issue in the future. Due to her complaints and neurologic deficits, it is my opinion it would be very important to address the stenosis and instability at the L3-4 level. The risks and benefits of the surgical procedure were discussed. The risks include, but are not limited to, infection, bleeding, , neurovascular injury, persisting back and leg pain, progression of disc degeneration, perineural fibrosis, arachnoiditis, adjacent segment disease and dural tear. Since this a redo procedure, she is at higher risk for dural rent, nerve injury due to alteration of anatomy. The patient states she understands the risks and benefits and wishes to proceed forward with surgical intervention. She will need to undergo cardiac clearance prior to the surgical procedure. She will be scheduled in the near future. She will continue on her present medications, but stop all anti-inflammatory medication and blood thinners a week prior to surgery. [facility] 06/21/2024 Seroma of musculoskeletal structure after musculoskeletal [...] other problems she will call the office. [facility] 06/24/2024 Arthrodesis status (ICD-10 - Z98.1) <b>IMPRESSION:</b [...] continue on a course of conservative measures. [facility] 06/27/2024 Osteoarthritis of right knee (ICD-10 - [...] the office in 2 to 3 weeks. [facility] 07/15/2024 Orthopedic aftercare (ICD-10 - Z47.89) <b>IMPRESSION:</b [...] back in the office in 6 weeks. [facility] 04/04/2024 Scoliosis (ICD-10 - M41.9) <b>IMPRESSION:</b > Back pain. HNP. Radiculopathy. Lumbar spinal stenosis with neurogenic claudication. Disc degeneration. Facet degenerative joint disease. Prior lumbar fusion. Scoliosis. Osteopenia. <b>PLAN:</b> It is my recommendation the patient undergo a DEXA scan to evaluate bone quality. [facility] <b>ADDENDUM:</b> DEXA scan performed on 04/04/2024 reveals evidence of osteopenia involving the hips and forearms CT study through the lumbar spine performed on 04/04/2024 reveals evidence of fusion of L4-5 and L5-S1. Mild thoracolumbar scoliosis L1-2, L2-3 and L3-4. Foraminal narrowing L1-2 and L2-3. Severe stenosis L3-4 and severe foraminal stenosis L3-4. <b>DISCUSSION:</b > It is my opinion the patient is a candidate for surgical intervention. It is my opinion the surgical procedure of choice would that of performing lumbar decompressive laminectomy at L3-4, removal of hardware L4 to S1, exploration of fusion L4 to S1, TLIF procedure at L3-4 with extension of hardware from L4 to S1. I explained to the patient there is no perfect surgical option to address her complaints. She does have evidence of advanced degeneration at L1-2 and L2-3, which may be an issue in the future. Due to her complaints and neurologic deficits, it is my opinion it would be very important to address the stenosis and instability at the L3-4 level. The risks and benefits of the surgical procedure were discussed. The risks include, but are not limited to, infection, bleeding, , neurovascular injury, persisting back and leg pain, progression of disc degeneration, perineural fibrosis, arachnoiditis, adjacent segment disease and dural tear. Since this a redo procedure, she is at higher risk for dural rent, nerve injury due to alteration of anatomy. The patient states she understands the risks and benefits and wishes to proceed forward with surgical intervention. She will need to undergo cardiac clearance prior to the surgical procedure. She will be scheduled in the near future. She will continue on her present medications, but stop all anti-inflammatory medication and blood thinners a week prior to surgery. [facility] 06/21/2024 Other low back pain (ICD-10 - [...] other problems she will call the office. [facility] 06/27/2024 Knee pain, right (ICD-10 - M25.561) <b>IMPRESSION:</b > Status post lumbar decompressive laminectomy and fusion. Repair of dural rent with dural fascial graft application. Wound seroma. Right knee arthritis. Right knee pain. <b>PLAN:</b> It is my recommendation the patient continue in physical therapy, ambulate as much as possible. She will finish her Keflex. I recommend she see Dr. Yañez or Dr. Tye pertaining to her right knee degenerative joint disease and pain. We will see her back in the office in 2 to 3 weeks. [facility] 07/15/2024 Other low back pain (ICD-10 - [...] back in the office in 6 weeks. 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 HNP. Radiculopathy. Lumbar spinal stenosis with neurogenic claudication. Disc degeneration. Facet degenerative joint disease. Prior lumbar fusion. Scoliosis. Osteopenia. <b>PLAN:</b> It is my recommendation the patient undergo a DEXA scan to evaluate bone quality. [facility] <b>ADDENDUM:</b> DEXA scan performed on 04/04/2024 reveals evidence of osteopenia involving the hips and forearms CT study through the lumbar spine performed on 04/04/2024 reveals evidence of fusion of L4-5 and L5-S1. Mild thoracolumbar scoliosis L1-2, L2-3 and L3-4. Foraminal narrowing L1-2 and L2-3. Severe stenosis L3-4 and severe foraminal stenosis L3-4. <b>DISCUSSION:</b > It is my opinion the patient is a candidate for surgical intervention. It is my opinion the surgical procedure of choice would that of performing lumbar decompressive laminectomy at L3-4, removal of hardware L4 to S1, exploration of fusion L4 to S1, TLIF procedure at L3-4 with extension of hardware from L4 to S1. I explained to the patient there is no perfect surgical option to address her complaints. She does have evidence of advanced degeneration at L1-2 and L2-3, which may be an issue in the future. Due to her complaints and neurologic deficits, it is my opinion it would be very important to address the stenosis and instability at the L3-4 level. The risks and benefits of the surgical procedure were discussed. The risks include, but are not limited to, infection, bleeding, , neurovascular injury, persisting back and leg pain, progression of disc degeneration, perineural fibrosis, arachnoiditis, adjacent segment disease and dural tear. Since this a redo procedure, she is at higher risk for dural rent, nerve injury due to alteration of anatomy. The patient states she understands the risks and benefits and wishes to proceed forward with surgical intervention. She will need to undergo cardiac clearance prior to the surgical procedure. She will be scheduled in the near future. She will continue on her present medications, but stop all anti-inflammatory medication and blood thinners a week prior to surgery. [facility] 06/27/2024 Seroma of musculoskeletal structure after musculoskeletal [...] the office in 2 to 3 weeks. [facility] 04/04/2024 Disc Degeneration, Lumbar Region with Leg Pain (ICD-10 - M51.361) <b>IMPRESSION:</b > Back pain. HNP. Radiculopathy. Lumbar spinal stenosis with neurogenic claudication. Disc degeneration. Facet degenerative joint disease. Prior lumbar fusion. Scoliosis. Osteopenia. <b>PLAN:</b> It is my recommendation the patient undergo a DEXA scan to evaluate bone quality. [facility] <b>ADDENDUM:</b> DEXA scan performed on 04/04/2024 reveals evidence of osteopenia involving the hips and forearms CT study through the lumbar spine performed on 04/04/2024 reveals evidence of fusion of L4-5 and L5-S1. Mild thoracolumbar scoliosis L1-2, L2-3 and L3-4. Foraminal narrowing L1-2 and L2-3. Severe stenosis L3-4 and severe foraminal stenosis L3-4. <b>DISCUSSION:</b > It is my opinion the patient is a candidate for surgical intervention. It is my opinion the surgical procedure of choice would that of performing lumbar decompressive laminectomy at L3-4, removal of hardware L4 to S1, exploration of fusion L4 to S1, TLIF procedure at L3-4 with extension of hardware from L4 to S1. I explained to the patient there is no perfect surgical option to address her complaints. She does have evidence of advanced degeneration at L1-2 and L2-3, which may be an issue in the future. Due to her complaints and neurologic deficits, it is my opinion it would be very important to address the stenosis and instability at the L3-4 level. The risks and benefits of the surgical procedure were discussed. The risks include, but are not limited to, infection, bleeding, , neurovascular injury, persisting back and leg pain, progression of disc degeneration, perineural fibrosis, arachnoiditis, adjacent segment disease and dural tear. Since this a redo procedure, she is at higher risk for dural rent, nerve injury due to alteration of anatomy. The patient states she understands the risks and benefits and wishes to proceed forward with surgical intervention. She will need to undergo cardiac clearance prior to the surgical procedure. She will be scheduled in the near future. She will continue on her present medications, but stop all anti-inflammatory medication and blood thinners a week prior to surgery. [facility] 04/04/2024 Lumbar radiculopathy (ICD-10 - M54.16) <b>IMPRESSION:</b > Back pain. HNP. Radiculopathy. Lumbar spinal stenosis with neurogenic claudication. Disc degeneration. Facet degenerative joint disease. Prior lumbar fusion. Scoliosis. Osteopenia. <b>PLAN:</b> It is my recommendation the patient undergo a DEXA scan to evaluate bone quality. [facility] <b>ADDENDUM:</b> DEXA scan performed on 04/04/2024 reveals evidence of osteopenia involving the hips and forearms CT study through the lumbar spine performed on 04/04/2024 reveals evidence of fusion of L4-5 and L5-S1. Mild thoracolumbar scoliosis L1-2, L2-3 and L3-4. Foraminal narrowing L1-2 and L2-3. Severe stenosis L3-4 and severe foraminal stenosis L3-4. <b>DISCUSSION:</b > It is my opinion the patient is a candidate for surgical intervention. It is my opinion the surgical procedure of choice would that of performing lumbar decompressive laminectomy at L3-4, removal of hardware L4 to S1, exploration of fusion L4 to S1, TLIF procedure at L3-4 with extension of hardware from L4 to S1. I explained to the patient there is no perfect surgical option to address her complaints. She does have evidence of advanced degeneration at L1-2 and L2-3, which may be an issue in the future. Due to her complaints and neurologic deficits, it is my opinion it would be very important to address the stenosis and instability at the L3-4 level. The risks and benefits of the surgical procedure were discussed. The risks include, but are not limited to, infection, bleeding, , neurovascular injury, persisting back and leg pain, progression of disc degeneration, perineural fibrosis, arachnoiditis, adjacent segment disease and dural tear. Since this a redo procedure, she is at higher risk for dural rent, nerve injury due to alteration of anatomy. The patient states she understands the risks and benefits and wishes to proceed forward with surgical intervention. She will need to undergo cardiac clearance prior to the surgical procedure. She will be scheduled in the near future. She will continue on her present medications, but stop all anti-inflammatory medication and blood thinners a week prior to surgery. [facility] 04/04/2024 HNP (herniated nucleus pulposus), lumbar (ICD-10 - M51.26) <b>IMPRESSION:</b > Back pain. HNP. Radiculopathy. Lumbar spinal stenosis with neurogenic claudication. Disc degeneration. Facet degenerative joint disease. Prior lumbar fusion. Scoliosis. Osteopenia. <b>PLAN:</b> It is my recommendation the patient undergo a DEXA scan to evaluate bone quality. [facility] <b>ADDENDUM:</b> DEXA scan performed on 04/04/2024 reveals evidence of osteopenia involving the hips and forearms CT study through the lumbar spine performed on 04/04/2024 reveals evidence of fusion of L4-5 and L5-S1. Mild thoracolumbar scoliosis L1-2, L2-3 and L3-4. Foraminal narrowing L1-2 and L2-3. Severe stenosis L3-4 and severe foraminal stenosis L3-4. <b>DISCUSSION:</b > It is my opinion the patient is a candidate for surgical intervention. It is my opinion the surgical procedure of choice would that of performing lumbar decompressive laminectomy at L3-4, removal of hardware L4 to S1, exploration of fusion L4 to S1, TLIF procedure at L3-4 with extension of hardware from L4 to S1. I explained to the patient there is no perfect surgical option to address her complaints. She does have evidence of advanced degeneration at L1-2 and L2-3, which may be an issue in the future. Due to her complaints and neurologic deficits, it is my opinion it would be very important to address the stenosis and instability at the L3-4 level. The risks and benefits of the surgical procedure were discussed. The risks include, but are not limited to, infection, bleeding, , neurovascular injury, persisting back and leg pain, progression of disc degeneration, perineural fibrosis, arachnoiditis, adjacent segment disease and dural tear. Since this a redo procedure, she is at higher risk for dural rent, nerve injury due to alteration of anatomy. The patient states she understands the risks and benefits and wishes to proceed forward with surgical intervention. She will need to undergo cardiac clearance prior to the surgical procedure. She will be scheduled in the near future. She will continue on her present medications, but stop all anti-inflammatory medication and blood thinners a week prior to surgery. [facility] 04/04/2024 Other low back pain (ICD-10 - M54.59) <b>IMPRESSION:</b > Back pain. HNP. Radiculopathy. Lumbar spinal stenosis with neurogenic claudication. Disc degeneration. Facet degenerative joint disease. Prior lumbar fusion. Scoliosis. Osteopenia. <b>PLAN:</b> It is my recommendation the patient undergo a DEXA scan to evaluate bone quality. [facility] <b>ADDENDUM:</b> DEXA scan performed on 04/04/2024 reveals evidence of osteopenia involving the hips and forearms CT study through the lumbar spine performed on 04/04/2024 reveals evidence of fusion of L4-5 and L5-S1. Mild thoracolumbar scoliosis L1-2, L2-3 and L3-4. Foraminal narrowing L1-2 and L2-3. Severe stenosis L3-4 and severe foraminal stenosis L3-4. <b>DISCUSSION:</b > It is my opinion the patient is a candidate for surgical intervention. It is my opinion the surgical procedure of choice would that of performing lumbar decompressive laminectomy at L3-4, removal of hardware L4 to S1, exploration of fusion L4 to S1, TLIF procedure at L3-4 with extension of hardware from L4 to S1. I explained to the patient there is no perfect surgical option to address her complaints. She does have evidence of advanced degeneration at L1-2 and L2-3, which may be an issue in the future. Due to her complaints and neurologic deficits, it is my opinion it would be very important to address the stenosis and instability at the L3-4 level. The risks and benefits of the surgical procedure were discussed. The risks include, but are not limited to, infection, bleeding, , neurovascular injury, persisting back and leg pain, progression of disc degeneration, perineural fibrosis, arachnoiditis, adjacent segment disease and dural tear. Since this a redo procedure, she is at higher risk for dural rent, nerve injury due to alteration of anatomy. The patient states she understands the risks and benefits and wishes to proceed forward with surgical intervention. She will need to undergo cardiac clearance prior to the surgical procedure. She will be scheduled in the near future. She will continue on her present medications, but stop all anti-inflammatory medication and blood thinners a week prior to surgery. [facility] PLAN OF TREATMENT Pending Test Test Name Order Date Electrocardiogram (EKG) 04/04/2024 CBC With Differential/Platelet 9 CBC With Differential/Platelet PT AND PTT 04/04/2024 PT AND PTT 12/17/2018 Vitamin D, 25-Hydroxy 04/04/2024 Chem-Comprehensive 04/04/2024 Chem-Comprehensive 12/17/2018 X ray : Chest 2 views, PA, Lateral 04/04 Cardiac Clearance - Contact your heart doctor and explain you need a cardiac clearance statement in order to proceed with spine surgery. This note must be faxed to #[phone]. 12/17/2018 Insurance Providers Payer Name Payer Address Payer Phone Subscriber Number Group Number Insured Name Patient Relationship to Insured Coverage Start Date Coverage End Date [facility] Medicare Advantage PPO [address] [address] [place] [address] [id number] Avis Gale Self - patient is the insured MEDICAL (GENERAL) HISTORY Medical History History ICD Code Sleep apnea Shortness of breath Coronary artery disease Angina pectoris, unspecified I20.9 Anemia Neutropenia Hyponatremia Blood clots Thyroid disease Fibromyalgia Arthritis in knees Back pain Numbness in feet Spinal stenosis HNP Radiculopathy Endometriosis Hepatitis A Constipation Peripheral neuropathy Depression Denies being hospitalized for psychiatri c condition Denies h/o drug/chemical dependency Surgical History Surgery Date(Month/Year) Hysterectomy 1996 Appendectomy 1973 Tonsillectomy 1970 L4-S1 LDL, L4-S1 TLIF 2018 L3-4 LDL, L3-4 TLIF, L3-S1 instr, explor e prior fusion L4-5 06/11/2024 I&D, repair dural rent 06/12/2024 I&D, explore prior dural repair
--- OUTSIDE RECORDS SUMMARY | 2025-03-12 18:10 | XMS_ITS | Data Portability ---
Author Organization [employer], Main Office Address [address] [place] [address] Care Team Providers Care Drum Loader And Unloader Name Role Phone RORO PATRICIO Primary Care Provider [phone] RORO PATRICIO Referring Provider [phone] YAQUELIN LAGOS Pain Management Assessment No assessment recorded. Plan of Treatment Reminders Order Date Submit Date Provider Last Modified By Organization Details Last Modified Time Details Appointments None recorded. Lab None recorded. Referral None recorded. Procedures None recorded. Surgeries None recorded. [facility] 024 [email or web address] [facility], [address], [place] [address], [place], [address], 5 08:33:48 Medication Orders None recorded. Patient TargetsNo targets recorded. Patient InstructionsNo instructions recorded. Reason for Referral None Reported. Problems Name Problem SNOMED Code Status Onset Date Resolution Date Notes Provider Name and Address Organization Details Recorded Time Enthesopat hy of hip region 29925671 Active Not Available [employer] 3 15:40:21 Palpitatio ns 52106631 Completed 202312/29/2023 MARIETTA Hsieh null, [employer] 4 10:06:09 Polyneurop athy 13516199 Completed 202312/29/2023 MARIETTA Hsieh null, [employer] 4 10:06:40 Benign paroxysmal positional vertigo 163470944 Active 2023 Floresita Zuluaga RN null, [employer] 4 12:07:56 Peripheral vertigo 69187062 Active 2023 Stevenson Oliveira MD [address] [address], [place], [address] , [facility] 4 12:13:17 Sensorineu ral hearing loss 58864313 Active 2023 Stevenson Oliveira MD [address] [address], [place], [address] , [facility] [employer] [facility] 4 12:13:36 Problem Notes None recorded. Procedures Surgical History Date Name Laterality Status Provider Name and Address Organization Details Recorded Time cardiac catheterization completed Mary Darlin [facility] [employer] [facility] 12/29/2023 10:19:22 Tonsillectomy completed Mary Darlin, [facility] 12/29/2023 10:24:34 Imaging Results None recorded. Procedure Notes None recorded. Medical Equipment None Reported. Allergies Allergen ID Allergen Name Allergen Category Reaction Reaction Severity Criticality Documentation Date Start Date Code Code System Note Provider Name and Address Organization Details Recorded Time 88590 lidocaine medicatio n Not available Not available Not available 07/20/2022 6387 RxNorm swell ing [facility] 4 10:22:07 24025 prednison e medicatio n rash Not available Not available 12/29/2023 8640 RxNorm [facility]derick [facility] 4 10:22:17 Medications Name Sig Start Date Stop Date Status Note LastModified by Organization Details LastModified Time fluoxetine 40 mg capsule TK 1 C PO QAM active Not Available Not Available No t Available furosemide 40 mg tablet TK 1 T PO QAM 12/28 completed Not Available Not Available Not Available Colace 100 mg capsule Take 1 capsule every day by oral route. active Not Available Not Available No t Available tizanidine 4 mg tablet Take 1 tablet every 6 hours by oral route. active Not Available Not Available No t Available Claritin 10 mg tablet Take 1 tablet every day by oral route. active Not Available Not Available No t Available meloxicam 15 mg tablet TK 1 T PO DAILY active Not Available Not Available No t Available prednisone 20 mg tablet active Not Available Not Available Not Available Synthroid 100 mcg tablet Take 1 tablet every day by oral route. 12/28 completed Not Available Not Available Not Available Prilosec 40 mg capsule,del ayed release Take 1 capsule every day by oral route. 12/28 completed Not Available Not Available Not Available tramadol 50 mg tablet Take 1 tablet every 6 hours by oral route. active Not Available Not Available No t Available alprazolam 0.25 mg tablet Take 1 tablet 3 times a day by oral route. active Not Available Not Available No t Available trazodone 100 mg tablet TAKE 1 TABLET BY MOUTH DAILY AT BEDTIME active Not Available Not Available No t Available meclizine 25 mg tablet Take 1 tablet 3 times a day by oral route. active Not Available Not Available No t Available triamcinolo ne acetonide 0.1 % topical ointment APPLY A THIN LAYER TO THE AFFECTED AREA(S) BY TOPICAL ROUTE 2 TIMES PER DAY active Not Available Not Available No t Available omeprazole 20 mg capsule,del ayed release TK 1 C PO DAILY active Not Available Not Available No t Available aspirin 81 mg tablet Take by oral route. active Not Available Not Available No t Available ramipril 5 mg capsule TK 1 C PO DAILY active Not Available Not Available No t Available levothyroxi ne 112 mcg tablet active Not Available Not Available Not Available meloxicam 12/28 completed Not Available Not Available Not Available ergocalcife rol (vitamin D2) 400 unit tablet active Not Available Not Available No t Available ramipril 1.5 mg 12/28 completed Not Available Not Available Not Available multivitami n 12/28 completed Not Available Not Available Not Available levothyroxi ne 112 mcg capsule Take 1 capsule every day by oral route. active Not Available Not Available No t Available Vitals Date Recorded Body weight Body mass index (BMI) Body height Body temperature Provider Name and Address Organization Details Last Updated DateTime 01/04/2024 14819.53 g 32.7 kg/m2 167.64 cm 98 [degF] MARIETTA Hsieh [facility] - [facility] [employer] [facility] 01/04/2024 11:58:06 Social History None recorded. Functional Status Question Answer Note LastModified by Organization D etails LastModified Time What is your level of alcohol consumption? Moderate ftrotter Information not available 12/29/2023 Mental Status None recorded. Family History Nothing Reported Notes:NO ENT Medical History Condition Response BLOOD DISEASES Y ANEMIA/BLOOD DISORDER Y DIZZINESS Y HEART DISEASE/HEART PROBLEMS Y ENT Y SLEEP DISORDER Y DEPRESSION (INCLUDING POST ) Y HEARTBURN / REFLUX Y HYPERTENSION Y HIGH CHOLESTEROL / HYPERLIPIDEMIA Y Gynecological HistoryNo gynecological history recorded. Obstetrics History GPAL:G 0 P 0 0 0 0 Past Encounters Encounter ID Performer Location Encounter Start Date Encounter Closed Date Diagnosis/Indication Diagnosis SNOMED-CT Code Diagnosis ICD10 Code Diagnosis IMO Codes Diagnosis Note [id number] Stevenson Oliveira MD [facility] [place] [address] [place] [address] 01/04/2024 11:51:04 01/04/2024 12:40:35 Peripheral vertigo 24955547 H81.399 Sensorineu ral hearing loss 95191410 H90.5 Health Concerns Section Related Observation LastModified by Organization Detai ls LastModified Time None Recorded Concern Status LastModified by Organization Details LastModified Time None Recorded Advance Directives Directive None Recorded Payers Insurance Date Sequence Insurance Name Policy Number Policy Birch Covered Member ID Birch Member ID Guarantor Name 01/04/2024 1 [facility] (MEDICARE REPLACEMENT/A DVANTAGE - PPO) [id number] Avis Bartlett Weare [id number] Avis Gale Notes Date Note Type Note Provider Name and Address Organization Details Recorded Time 01/04/2024 text/html this patient reports vertigo which is non positional since April. Meclizine has been somewhat helpful. She does have degenerative spine disease. She did have an MRI scan which was normal. Has reports some ear congestion on the right with a clicking sound. She has seen an crossing gateman. Stevenson Oliveira MD [address] [place] [address], [facility] [address], [place], [address], [place] [facility] [employer] [facility] 01/04/2024 12:14:11 OBGyn Episode No OBEpisode recorded.
--- OUTSIDE RECORDS SUMMARY | 2025-03-12 18:10 | XMS_ITS | Encounter Summary ---
Author Organization [facility] Address [address] [place] [address] Care Team Providers Care Gm/Svp Global Publisher Business Name Role Phone Priscilla Nunes MD Primary Care Provider Ryan Rivera MD Unavailable Encounter Details Date Type Department Care Team (Late st Contact Info) Description 01/31/2019 Abstract [facility] [address] [place] [address] Ryan Rivera MD [address] [place] [address] Social History Tobacco Use Types Packs/Day Years Used Date Smoking Tobacco: Former Smokeless Tobacco: Never Alcohol Use Standard Drinks/Week Comments No 0 (1 standard drink = 0.6 oz pur e alcohol) Comments Unknown Sex and Gender Information Value Date Recorded Sex Assigned at Not on file Legal Sex Female 10:43 PM CDT Gender Identity Not on file Sexual Orientation Not on file 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 Not on file Not on file documented as of this encounter Plan of Treatment Not on file documented as of this encounter Procedures Procedure Name Priority Date/Time Associated Diagnosis Comments PROTHROMBIN TIME, VENOUS Routine 01/30/2019 Hypothyroidism Precordial pain Abnormal cardiovascular stress test CBC W/DIFF AUTOMATED Routine 01/30/2019 Hypothyroidism Precordial pain Abnormal cardiovascular stress test MAGNESIUM Routine 01/30/2019 Hypothyroidism Precordial pain Abnormal cardiovascular stress test BASIC METABOLIC PANEL Routine 01/23/2019 Hypothyroidism Precordial pain Abnormal cardiovascular stress test documented in this encounter Results * MAGNESIUM (01/30/2019) MAGNESIUM 1.7 01/30/2019 Ryan Rivera MD LABORATORY Final Resul t * PROTHROMBIN TIME, VENOUS (01/30/2019) PROTIME WHOLE BLOOD 10.2 INR WHOLE BLOOD 0.96 01/30/2019 us Ryan Rivera MD LABORATORY Final Resul t * CBC W/DIFF AUTOMATED (01/30/2019) WBC 8.0 RBC 3.6 HGB 11.4 HCT 33.7 MCV 92 MCH 31 MCHC 33 PLT 305 01/30/2019 us Ryan Rivera MD LABORATORY Final Resul t * BASIC METABOLIC PANEL (01/23/2019) SODIUM S/P/B 132 POTASSIUM S/P/B 4.1 CO2 27 CHLORIDE S/P/B 95 GLUCOSE 104 mg/dL CALCIUM S/P/B 8.5 BUN 13 CREATININE S/P/B 0.72 0.5 - 1.0 01/23/2019 Ryan Rivera MD LABORATORY Final Resul t documented in this encounter Visit Diagnoses Diagnosis Hypothyroidism Unspecified hypothyroidism Precordial pain Abnormal cardiovascular stress test Other nonspecific abnormal cardiovascular system function study documented in this encounter Care Teams Gm/Svp Global Publisher Business Relationship Specialty Start Date End Date Priscilla Nunes MD [address] [place] [address] PCP - General INTERNAL MEDICINE 05/25/16 Ryan Rivera MD [address] [place] [address] [place] Ironworker Foreman CARDIOVASCULAR DISEASE 05/25/16 documented as of this encounter
--- OUTSIDE RECORDS SUMMARY | 2025-03-12 18:10 | XMS_ITS | Encounter Summary ---
Author Organization [facility] Address [address] [place] [address] Care Team Providers Care Bacon Slicer Name Role Phone Priscilla Nunes MD Primary Care Provider Ryan Rivera MD Unavailable [phone] Encounter Details Date Type Department Care Team (Late st Contact Info) Description 01/31/2019 Abstract [facility] [address] [place] [address] Ryan Rivera MD [address] [place] [address] Social History Tobacco Use Types [...] Procedure Name Priority Date/Time Associated Diagnosis Comments TSH (OUTSIDE LAB) Routine 01/30/2019 LIPID PANEL Routine 01/30/2019 documented in this encounter Results * TSH (OUTSIDE LAB) (01/30/2019) TSH 2.23 01/30/2019 us Doc [facility] Abstract LAB-OUTSIDE/ABSTRACTED Final Result * LIPID PANEL (01/30/2019) CHOLESTEROL 200 HDL 68 TRIGLYCERIDES 47 CHOL/HDL RATIO 2.9 LDL (CALCULATED) 123 01/30/2019 us Doc [facility] Abstract LABORATORY Final Result documented in this encounter Visit Diagnoses Not on filedocumented in this encounter Care Teams Bacon Slicer Relationship Specialty Start Date End Date Priscilla Nunes MD [address] [place] [address] PCP - General INTERNAL MEDICINE 05/25/16 Ryan Rivera MD [address] [place] [address] [place] Breaker Engineer CARDIOVASCULAR DISEASE 05/25/16 documented as of this encounter
--- OUTSIDE RECORDS SUMMARY | 2025-03-12 18:11 | XMS_ITS | Clinical Summary ---
Author Organization [facility] Address [address] [place] [address] Care Team Providers Care Manager Construction Name Role Phone Priscilla Nunes MD Primary Care Provider [phone] Ryan Rivera MD Unavailable [phone] Allergies Active Allergy Reactions Criticality Noted Date Comments Pneumococcal Vaccines Swelling 01/30/2019 Throat and arm swelling Medications ramipril (ALTACE) 5 MG capsule Take 1 tablet by mouth daily. 02/13/2012 Active diltiazem 24 hr (CARDIZEM CD) 240 MG capsule Take 1 tablet by mouth daily. 10/24/2013 Active levothyroxine 100 MCG tablet Take 1 tablet by mouth daily. 02/13/2012 Active Loratadine 10 MG Cap Take 1 tablet by mouth daily. 02/13/2012 Active omeprazole 20 MG capsule Take 1 tablet by mouth daily. 02/13/2012 Active Multiple Vitamins-Minera ls (PRESERVISION AREDS 2 OR) Take 2 tablets by mouth daily. 10/24/2013 Active traMADol 50 MG tablet Take 1 tablet by mouth daily as needed. 10/24/2013 Active acetaminophen (TYLENOL ARTHRITIS PAIN) 650 MG Tab CR Take 1 tablet by mouth daily. 02/13/2012 Active Vitamin D, Ergocalciferol, 25217 UNITS capsule Take 50,000 Units by mouth daily. Active fluoxetine 20 MG capsule Take 40 mg by mouth daily. Active ALPRAZolam 0.5 MG tablet Take 0.5 mg by mouth nightly as needed for Sleep. Active furosemide 40 MG tablet Take 40 mg by mouth daily. Active trazodone 100 MG tablet Take 100 mg by mouth nightly at bedtime. Active meloxicam 15 MG tablet Take 15 mg by mouth daily. 01/19/2019 Active Active Problems Problem Noted Date Diagnosed Date Precordial pain 05/27/2016 Palpitations 05/27/2016 Shoulder pain Insomnia Hypothyroidism HTN (hypertension) HLD (hyperlipidemia) GERD (gastroesophageal reflux disease) Fibromyalgia Depression Anxiety disorder Family History Medical History Relation Comments Coronary artery disease Father Stroke Father Stroke Maternal Grandmother Atrial fib Mother Stroke Mother Heart Disease Other Stroke Paternal Grandmother Relation Status Comments Father Maternal Grandmother Mother (Age 76) Other Paternal Grandmother Social History Tobacco Use Types Packs/Day Years [...] file Not on file Not on file Last Filed Vital Signs Vital Sign Reading Time Taken Comments Blood Pressure 123/64 02/01/2019 11:00 AM CDT L 129/72 Pulse 62 02/01/2019 11:00 AM CDT Temperature 36.7 C (98.1 F) 02/01/2019 11:00 AM CDT Respiratory Rate 18 02/01/2019 11:0 0 AM CDT Oxygen Saturation 98% 02/01/2019 11: 00 AM CDT Inhaled Oxygen Concentration - - Weight 89.3 kg (196 lb 13.9 oz) 019 11:00 AM CDT Height 165.1 cm (5' 5) 02/01/2019 11:0 0 AM CDT Body Mass Index 32.76 02/01/2019 11:00 AM CDT Plan of Treatment Health Maintenance Due Date Last Done Comments Colorectal Cancer Screening Colonoscopy (10 Years) 1950 Hepatitis C 1968 DTaP, Tdap and Td Vaccines ( 1 - Tdap) 1969 Mammogram Screening 1990 Zoster Vaccines (2 of 3) 11/13/2014 09/18/2014 Dexa Scan (General) 10/23/2015 COVID-19 Vaccine (1 - 2024-2 6 season) 2025 Influenza Adult (#1) 2025 RSV Immunization or 60+ Years (1 - 1-dose 75+ series) 2025 Hepatitis A Vaccines Aged Out No long er eligible based on patient's age to complete this topic Meningococcal B Vaccine Aged Out No l onger eligible based on patient's age to complete this topic Meningococcal Vaccine Aged Out No rizwan maynor eligible based on patient's age to complete this topic RSV Immunizations Under 20 Months Aged Out No longer eligible based on patient's age to complete this topic Insurance [facility] Advance Directives * Full Code (Latest Code Status on File) Date Activated Date Inactivated Comments 02/01/2019 2:13 PM 02/01/2019 6:48 PM Care Teams Manager Construction Relationship Specialty Start Date End Date Priscilla Nunes MD [address] [place] [address] PCP - General INTERNAL MEDICINE 05/25/16 Ryan Rivera MD [address] [place] [address] [place] Retail Sales Teammate CARDIOVASCULAR DISEASE 05/25/16
--- OUTSIDE RECORDS SUMMARY | 2025-03-12 18:11 | XMS_ITS | Encounter Summary ---
Author Organization [facility] Address [address] [place] [address] Care Team Providers Care Registered Dietetic Technician Name Role Phone Priscilla Nunes MD Primary Care Provider Ryan Rivera MD Unavailable [phone] Encounter Details Date Type Department Care Team (Late st Contact Info) Description 10/24/2013 Abstract [facility] [place] [address] [place] [address] Ryan Rivera MD [address] [place] [address] Social History Tobacco Use Types Packs/Day Years Used Date Smoking Tobacco: Former Alcohol Use Standard Drinks/Week Comments No 0 [...] on file documented as of this encounter Visit Diagnoses Not on filedocumented in this encounter Care Teams Registered Dietetic Technician Relationship Specialty Start Date End Date Priscilla Nunes MD [address] [place] [phone] PCP - General INTERNAL MEDICINE 05/25/16 Ryan Rivera MD [address] [place] [address] [place] Plant Attendant Or Assistant Operator CARDIOVASCULAR DISEASE 05/25/16 documented as of this encounter
--- OUTSIDE RECORDS SUMMARY | 2025-03-12 18:12 | XMS_ITS | Encounter Summary ---
Author Organization [facility] Address [address] [place] [address] Care Team Providers Care Novelty Balloon Assembler And Packer Name Role Phone Priscilla Nunes MD Primary Care Provider [phone] Ryan Rivera MD Unavailable Encounter Details Date Type Department Care Team (Late st Contact Info) Description 05/18/2016 Abstract [facility] [address] [place] [address] Ryan Rivera MD [address] [place] [address] Social History Tobacco Use Types [...] on filedocumented in this encounter Care Teams Novelty Balloon Assembler And Packer Relationship Specialty Start Date End Date Priscilla Nunes MD [address] [place] [address] PCP - General INTERNAL MEDICINE 05/25/16 Ryan Rivera MD [address] [place] [address] [place] Chalk Tester CARDIOVASCULAR DISEASE 05/25/16 documented as of this encounter
== END 2025-03-12 13:52 | disposition home or self-care (01) ==
PROVIDERS: PCP Internal Medicine; Visit Provider Internal Medicine
DX: Z12.31 Encounter for screening mammogram for malignant neoplasm of breast (principal); Z78.0 Asymptomatic menopausal state; M85.89 Other specified disorders of bone density and structure, multiple sites
CPT/HCPCS: 77063; 77067; 77080

== ENCOUNTER 2025-03-24 14:35 | Outpatient (CLI) | payer MEDICARE, SELFPAY ==
--- NOTE | ~2025-03-24 | XR_ITS ---
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 Findings: No acute fracture or malalignment. Moderate to severe tricompartmental degenerative changes with small joint effusion Soft tissues unremarkable. Impression: No acute fracture or malalignment. Reviewed, dictated and finalized at location P. R ADULT SOCIAL WORK SPECIALIST Impression: No acute fracture or malalignment.
--- NOTE | ~2025-03-24 | XR_ITS ---
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 Findings: No acute fracture or malalignment. 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 Impression: No acute fracture or malalignment. Reviewed, dictated and finalized at location P. RAFT DESIGNER Impression: No acute fracture or malalignment.
== END 2025-03-24 14:36 | disposition home or self-care (01) ==
LOC: CHSIMG 14:36
PROVIDERS: PCP Internal Medicine; Visit Provider Internal Medicine
DX: M25.562 Pain in left knee (principal); M25.561 Pain in right knee
CPT/HCPCS: 73562

== ENCOUNTER 2025-04-05 10:15 | Outpatient (CLI) | payer MEDICARE, SELFPAY ==
--- NOTE | ~2025-04-05 | MR_ITS ---
EXAMINATION: MR knee RT wo con DATE: 04/05/2025 11:12 INDICATION: Right knee pain and swelling. TECHNIQUE: Magnetic resonance imaging (MRI) of the right knee was performed without intravenous contrast. Sequences included axial PD-weighted FS FSE, coronal PD-weighted FSE and PD-weighted FS FSE, sagittal PD-weighted FSE, and sagittal T2-weighted FS FSE. COMPARISON: Right knee radiographs 03/24/2025 FINDINGS: Medial compartment: There is maceration of the body and posterior horn of medial meniscus. There is partial-thickness cartilage loss of femoral condyle, deep at the central and posterior articular surface. There is shallow partial-thickness cartilage loss of tibial condyle. Osteophytes are noted. Lateral compartment: There is maceration of the lateral meniscus. There is extensive full-thickness cartilage loss of femoral condyle and tibial condyle with cortical remodeling of tibial condyle, mild subchondral edema-like signal intensity, and osteophytes. Patellofemoral compartment: There is full-thickness cartilage loss of patellar medial and lateral facets. There is partial-thickness cartilage loss of trochlea. Osteophytes are noted. Ligaments and tendons: There is a complete tear of anterior cruciate ligament, which is less steep than Blumensaat's line. Posterior cruciate ligament is normal. Medial collateral ligament is intact. There is a complete tear of lateral collateral ligament proximally. There is mild patellar tendinopathy. Fluid: There is a moderate-sized knee joint effusion. There is a small Catalan's cyst. There is moderate prepatellar and superficial infrapatellar bursitis. IMPRESSION: 1. 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 2. Tears of medial and lateral menisci. 3. Complete tear of anterior cruciate ligament. 4. Complete tear of lateral collateral ligament. 5. Moderate-sized knee joint effusion. 6. Small Catalan's cyst. Reviewed, dictated and finalized at location E. ATE CLERK IMPRESSION: 1. 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 2. Tears of medial and lateral menisci. 3. Complete tear of anterior cruciate ligament. 4. Complete tear of lateral collateral ligament. 5. Moderate-sized knee joint effusion. 6. Small Catalan's cyst.
== END 2025-04-05 10:16 | disposition home or self-care (01) ==
LOC: CHSIMG 10:17
PROVIDERS: PCP Internal Medicine; Visit Provider Internal Medicine
DX: M25.561 Pain in right knee (principal); M79.89 Other specified soft tissue disorders; M22.2X1 Patellofemoral disorders, right knee; S83.241A Other tear of medial meniscus, current injury, right knee, initial encounter; S83.281A Other tear of lateral meniscus, current injury, right knee, initial encounter; S83.421A Sprain of lateral collateral ligament of right knee, initial encounter; S83.411A Sprain of medial collateral ligament of right knee, initial encounter; M25.461 Effusion, right knee; M71.21 Synovial cyst of popliteal space [Baker], right knee
CPT/HCPCS: 73721

== ENCOUNTER 2025-04-14 13:30 | Outpatient (CLI) | payer MEDICARE, SELFPAY ==
[2025-04-14 13:43] VITALS: BP 134/80; PULSE 80; RESP 14; TEMP 36.6; O2SAT 97; BMI 36.0
[2025-04-14] MEDS: ZOLEDRONIC ACID 5 MG/100 ML 100 ML 400 MG IVPB (14:00)
[2025-04-14 14:42] VITALS: BP 136/70; PULSE 78; RESP 16
--- NOTE | 2025-04-14 14:43 | PC.NURSE ---
Patient tolerated Reclast infusion well SEE MAR/patient care notes.
== END 2025-04-14 13:31 | disposition home or self-care (01) ==
PROVIDERS: PCP Internal Medicine; Visit Provider Internal Medicine
DX: M81.0 Age-related osteoporosis without current pathological fracture (principal)
CPT/HCPCS: 96374; J3489